=== PATIENT | male | born 1990 | race Caucasian/White ===

== ENCOUNTER → 2018-01-07 12:51 | Outpatient (CLI) | payer MEDICAID, SELFPAY ==
[2018-01-07 14:18] LABS: Hemoglobin A1C 5.2 % (4.5-6.2)
[2018-01-07 14:45] LABS: Vitamin B12 411 pg/mL (193-986)
[2018-01-07 14:51] LABS: Vitamin D 25 Total 39.9 ng/ml (30-100)
[2018-01-08 13:53] LABS: Albumin 63.2 % (55.8-66.1); Total Protein 6.8 g/dl (6.3-8.2)
== END ==
PROVIDERS: PCP Nurse Practitioner Family; Visit Provider Nurse Practitioner Adult Health
DX: R20.2 Paresthesia of skin (principal)
CPT/HCPCS: 36415; 82306; 82607; 83036; 84165

== ENCOUNTER 2018-02-24 16:42 | Emergency (ER) | payer MEDICAID, SELFPAY ==
[2018-02-24 16:47] VITALS: BP 112/69; PULSE 75; RESP 16; TEMP 36.8; O2SAT 98
[2018-02-24 18:53] LABS: Bilirubin Negative (Negative); Blood Negative (Negative); Clarity Clear; Glucose Negative (Negative); Ketones Negative (Negative); Leukocyte Esterase Negative (Negative); Nitrite Negative (Negative); Specific Gravity 1.025 (1.005-1.025); Urobilinogen 0.2 EU/dL (Up TO 0.2)
[2018-02-24] MEDS: Azithromycin 250 MG TAB 1000 MG (18:53)
[2018-02-24] MEDS: Ketorolac 30 MG/ML VIAL IM (18:53)
[2018-02-24] MEDS: cefTRIAXone 250 MG VIAL (18:53)
[2018-02-24] MEDS: Acetaminophen 500 MG TAB 1000 MG PO (18:54)
[2018-02-24 19:03] LABS: Bacteria Negative HPF (Negative); C & S Indicated? No; Casts Negative LPF (Negative); Crystals Few Calcium Oxalate HPF (Negative); Epithelial Cells Negative HPF (Negative); Mucus Negative (Negative); RBC Negative (0-2); WBC Negative HPF (0-5)
[2018-02-24 19:45] VITALS: BP 110/80; PULSE 88; RESP 18; TEMP 36.8; O2SAT 99
--- NOTE | 2018-02-24 20:07 | W.ED.GENAD ---
Discharge Plan Disposition Patient Disposition: HOME Condition: Good Discharge Details Chief Complaint: Urinary Clinical Impression: Acute epididymitis, Groin strain Primary Care Provider: Rosie Mcdonald ED Provider: Edwin West Home Meds and New Rx's Prescriptions: New acetaminophen [Mapap Extra Strength] 500 MG tablet 1,000 mg PO Q6H 5 Days Qty: 60 RF: 0 ibuprofen [Motrin IB] 200 MG tablet 800 mg PO Q6H 5 Days Qty: 80 RF: 0 doxycycline hyclate 100 mg capsule 100 mg PO BID 14 Days Qty: 28 RF: 0 No Action hydroxyzine pamoate 50 mg capsule 150 mg PO HS PRN (Reason: anxiety and insomnia) Qty: 270 RF: 3 buspirone 30 mg tablet 30 mg PO BID Qty: 180 RF: 3 omeprazole 20 mg capsule,delayed release(DR/EC) 20 mg PO BID Qty: 180 RF: 3 alum-mag hydroxide-simeth [Antacid Regular Strength] 355 ML suspension 30 ml PO PRN RF: 0 albuterol sulfate [ProAir HFA] 8.5 GM HFA aerosol inhaler 1 - 2 puff Inhalation Q4-6H PRN Qty: 1 RF: 3 topiramate 25 MG tablet 50 mg PO HS Qty: 60 RF: 3 Discharge Instructions Instructions: Muscle Strain (ED), Epididymitis (ED) Additional Instructions: Please take the medication as directed. Please only have protected intercourse. If you notice any worsening of your symptoms, or any new symptoms such as vomiting, diarrhea, fever, chills, shortness of breath, chest pain, numbness, weakness, or fainting , please return immediately to the emergency department for reevaluation. Please follow up with your primary care provider as soon as possible for reassessment and reevaluation. As always, it was a pleasure participating in your medical care today. Referrals: Rosie Mcdonald, CLIENT SERVICES REPRESENTATIVE [Primary Care Provider] - Medical Decision Making This is a pleasant 27-year-old male who presents for evaluation of right groin pain which has been present for the last few weeks but is gradually been getting worsened. It started in his right testicle and is now mainly in his groin. He had some navya colored semen on ejaculation earlier today. No pain with ejaculation. No significant blood that he noted. Pain is worsened with movement and palpation of the right groin, however there is no evidence of bulging, hernia, or other abnormality. No testicular tenderness and a normal cremasteric exam bilaterally. At this time I feel the patient's symptoms are most likely secondary to prolonged and chronic epididymitis with his proximally tender spermatic cord, as well as potential right-sided groin strain. Urinalysis is negative for any significant abnormalities. He has had gonorrhea and chlamydia in the past, and has been having unprotected sex with various individuals. We will treat for gonorrhea and chlamydia, as well as prescribe 14 days of doxycycline for potential chronic epididymitis. Will also prescribe high-dose NSAIDs for treatment of the inflammatory component/groin strain. We discussed red flags for which to return, including the importance of protection during intercourse. I have extensively reviewed the treatment plan and discharge instructions with the patient. I have addressed all patient concerns at this time. The patient was made aware of what symptoms to monitor for that would warrant a return to the emergency department. Discussed the plan with the patient, they demonstrate verbal understanding and agreement with our assessment and plan at this time. HPI General Date/Time Provider Initiated Documentation: 02/24/18 17:22. HPI Narrative: This is a pleasant 27-year-old male with a past medical history of asthma, and anxiety who presents today for evaluation of right-sided groin pain. He states that for the last 2 weeks he has had mild right-sided groin pain, which initially started down by his scrotum is mostly now localized in his right groin. He has some associated dysuria, he also noticed that his seminal fluid was slightly navya in color today when he ejaculated. He describes it as achy in sensation. Constant in nature. Worsened with movement and palpation of the right groin area the patient denies any hematuria, hematochezia, melena, acholic stool, diarrhea, current testicular pain, penile pain, or urethral discharge. He does have a history of STDs for both gonorrhea and chlamydia in the past. He denies any other complaints. He denies any recent traumas. He does have a history of kidney stones. He denies any pertinent surgeries, pertinent family history or IV or illicit drug use. Related Data Home Medications Medication Instructions Recorded Confirmed alum-mag hydroxide-simeth [Antacid 30 ml PO PRN ml 05/30/17 02/24/18 Regular Strength] albuterol sulfate [Proair Hfa] 1 - 2 puff INHALATION Q4-6H PRN #1 11/14/17 02/24/18 inhaler topiramate 50 mg PO HS #60 tab-cap 01/07/18 02/24/18 buspirone 30 mg tablet 30 mg PO BID #180 tab-cap 01/31/18 02/24/18 hydroxyzine pamoate 50 mg capsule 150 mg PO HS PRN #270 tab-cap 01/31/18 02/24/18 omeprazole 20 mg capsule,delayed 20 mg PO BID #180 tab-cap 01/31/18 02/24/18 release acetaminophen [Mapap Extra 1,000 mg PO Q6H 5 Days #60 tab 02/24/18 Strength] doxycycline hyclate 100 mg PO BID 14 Days #28 cap 02/24/18 ibuprofen [Motrin Ib] 800 mg PO Q6H 5 Days #80 tab 02/24/18 Previous Rx's Medication Instructions Recorded albuterol sulfate [Proair Hfa] 1 - 2 puff INHALATION Q4-6H PRN #1 11/14/17 inhaler topiramate 50 mg PO HS #60 tab-cap 01/07/18 buspirone 30 mg tablet 30 mg PO BID #180 tab-cap 01/31/18 hydroxyzine pamoate 50 mg capsule 150 mg PO HS PRN #270 tab-cap 01/31/18 omeprazole 20 mg capsule,delayed 20 mg PO BID #180 tab-cap 01/31/18 release acetaminophen [Mapap Extra 1,000 mg PO Q6H 5 Days #60 tab 02/24/18 Strength] doxycycline hyclate 100 mg PO BID 14 Days #28 cap 02/24/18 ibuprofen [Motrin Ib] 800 mg PO Q6H 5 Days #80 tab 02/24/18 Allergies Allergy/AdvReac Type Severity Reaction Status Date / Time No Known Allergies Allergy Unverified 02/24/18 16:53 General Stated Complaint: Urinary SERGE: 3 Review of Systems Review of Systems 10 point review of systems was performed, pertinent positives and negatives are noted in the history of present illness. Exam Narrative Exam Narrative: 1.Const: Well-nourished, Well-developed, appearing stated age 2.Eyes: PERRL, no conjunctival injection, and symmetrical lids. 3.ENT: Atraumatic external nose and ears. Moist MM. Neck: Symmetric, trachea midline, No thyromegaly. 4.CVS: +S1/S2, No murmurs or gallops. Peripheral pulses 2+ and equal in all extremities. Brisk capillary refill in all extremities. 5.RESP: Unlabored respiratory effort. Clear to auscultation bilaterally. No wheezes rales or rhonchi 6.GI: Soft, Nontender/Nondistended, No hepatosplenomegaly. No guarding or rebound. No pain at McBurney's point, negative Nichols sign, negative obturator and psoas sign mild tenderness on palpation of the right groin. No evidence of hernia. Valsalva elicits no evidence of herniation. No mass palpated in the groin or bulging. Testicular exam performed with nurse at bedside demonstrates a uncircumcised penis with no urethral discharge, no tenderness. No lesions, bumps, or wounds. Bilaterally descended testicles are present, with no evidence of swelling, or edema. No significant tenderness on palpation of the testicles. Some tenderness on palpation of the more proximal spermatic cord. No masses are noted. Normal cremasteric reflex bilaterally 7.MSK: Normocephalic/Atraumatic, Extremities w/o deformity or ttp No cyanosis or clubbing, Normal movement of all extremities 8.Skin: Warm, Dry. No rashes or lesions. 9.Neuro: cooker meal II-XII grossly intact. Sensation grossly intact, no focal neurologic deficits. 10.Psych: (AAO) x3. Appropriate mood and affect Course Vital Signs Temperature 36.8 C 02/24/18 16:47 Pulse 75 02/24/18 16:47 Respiratory Rate 16 02/24/18 16:47 Blood Pressure 112/69 02/24/18 16:47 Pulse Oximetry 98 02/24/18 16:47 Temperature 36.8 C 02/24/18 19:45 Temperature Source Skin 02/24/18 16:47 Pulse 88 02/24/18 19:45 Respiratory Rate 18 02/24/18 19:45 Respiratory Effort 02/24/18 16:51 Blood Pressure 110/80 02/24/18 19:45 Blood Pressure Position Sitting 02/24/18 16:47 Pulse Oximetry 99 02/24/18 19:45 Oxygen Delivery Method Room Air 02/24/18 16:47 Oxygen Flow Rate 0 02/24/18 16:47 Pain Level 3 02/24/18 16:47 Lab/Test Results Lab/Test Results: Laboratory Tests Range/Units 02/24/18 18:16 Urine Color (Yellow) Yellow Urine Clarity Clear Urine pH (5-8) 6.0 Ur Specific [place] (1.005-1.025) 1.025 Urine Protein (Negative) mg/dL Trace H Urine Ketones (Negative) mg/dL Negative Urine Blood (Negative) Negative Urine Nitrite (Negative) Negative Urine Bilirubin (Negative) Negative Urine Urobilinogen (Up TO 0.2) EU/dL 0.2 Ur Leukocyte Esterase (Negative) Negative Urine RBC (0-2) Negative Urine WBC (0-5) HPF Negative Ur Epithelial Cells (Negative) HPF Negative Urine Crystals (Negative) HPF Few calcium oxalate Urine Bacteria (Negative) HPF Negative Urine Casts (Negative) LPF Negative Urine Mucus (Negative) Negative Ur Culture Indicated? No Urine Glucose (Negative) mg/dL Negative
[2018-02-26 14:43] LABS: Chlamydia Result Negative; GC Result Negative
== END 2018-02-24 19:46 | disposition home or self-care (01) ==
PROVIDERS: Emergency Provider Student in an Organized Health Care Education/Training Program; PCP Nurse Practitioner Family
DX: N45.1 Epididymitis (principal); S76.201A Unspecified injury of adductor muscle, fascia and tendon of right thigh, initial encounter; X58.XXXA Exposure to other specified factors, initial encounter
CPT/HCPCS: 87491; 87591; 99283; 81003; 81015; J0696; J1885

== ENCOUNTER 2018-02-26 00:51 | Outpatient (CLI) | payer MEDICAID, SELFPAY ==
--- NOTE | 2018-02-26 07:46 | DI.RAD_ITS ---
SYMPTOM/DIAGNOSIS: PRE MRI, SHRAPNEL IN HAND S60.559A LEFT HAND: 02/26 Two views were obtained. No metallic foreign body identified. The bones appear normal.
--- NOTE | 2018-02-26 08:45 | DI.MRI_ITS ---
SYMPTOM/DIAGNOSIS: L3-[address] LUMBOSACRAL SPINE MRI: 02/26 MRI examination of the lumbosacral spine was performed according to the usual protocol. Note is made of bilateral L3 spondylolysis as noted on abdominal CT of 07/10/17. There is mild hypertrophic degenerative change of the facet joints of the lower lumbar spine. There is signal loss in L3-4 and L4-5 intervertebral discs with peridiscal vertebral signal changes consistent with disc degeneration. There are moderate disc bulges at L3-4 and L4-5 and there may be a small superimposed left lateral disc herniation at the level of the neural foramen at L3-4. No additional disc herniation identified in the lumbar region. The neural foramina ae mildly narrowed bilaterally at L3-4, left greater than right. Otherwise, neural foramina appear intact throughout the lumbar region. Conus medullaris appears intact. CONCLUSION: Findings consistent with disc degeneration at L3-4 and L4-5, mild disc bulges are noted at these levels with probable small superimposed left lateral disc herniation of L3-4 which may cause impingement of left L3 nerve root at this level. Please correlate clinically. 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
== END 2018-02-26 01:11 ==
PROVIDERS: PCP Nurse Practitioner Family; Visit Provider Psychiatry & Neurology Neurology
DX: M51.16 Intervertebral disc disorders with radiculopathy, lumbar region (principal); M43.06 Spondylolysis, lumbar region; M43.16 Spondylolisthesis, lumbar region; Z13.89 Encounter for screening for other disorder; S60.552D Superficial foreign body of left hand, subsequent encounter
CPT/HCPCS: 72148; 73120

== ENCOUNTER 2018-03-06 14:41 | Outpatient (CLI) | payer MEDICAID, SELFPAY ==
[2018-03-07 11:38] LABS: HIV-1/2 Ag & Ab Screen Negative (NEGAT)
[2018-03-07 14:31] LABS: Syphilis Serology (RPR) Negative (Negative)
== END 2018-03-06 15:01 ==
PROVIDERS: PCP Nurse Practitioner Family; Visit Provider Nurse Practitioner Family
DX: N45.1 Epididymitis (principal)
CPT/HCPCS: 36415; 87389; 86592

== ENCOUNTER 2018-03-06 15:24 | Outpatient (REF) | payer MEDICAID, SELFPAY | END 2018-03-06 15:44 | LOC: LBN 15:24 | PROVIDERS: PCP Nurse Practitioner Family; Visit Provider Nurse Practitioner Family | DX: N45.1 Epididymitis (principal) | CPT/HCPCS: 87086 ==

== ENCOUNTER 2018-03-08 18:56 | Emergency (ER) | payer MEDICAID, SELFPAY ==
[2018-03-08 19:00] VITALS: BP 125/80; PULSE 78; RESP 16; TEMP 36.5; O2SAT 100
--- NOTE | 2018-03-08 19:15 | W.ED.GENAD ---
Discharge Plan Disposition Patient Disposition: STILL A PATIENT Condition: Stable Discharge Details Chief Complaint: Abd Prob Clinical Impression: Abdominal pain, Right testicular pain Primary Care Provider: Rosie Mcdonald ED Provider: Keesha Lemon Home Meds and New Rx's Prescriptions: No Action hydroxyzine pamoate 50 mg capsule 150 mg PO HS PRN (Reason: anxiety and insomnia) Qty: 270 RF: 3 buspirone 30 mg tablet 30 mg PO BID Qty: 180 RF: 3 omeprazole 20 mg capsule,delayed release(DR/EC) 20 mg PO BID Qty: 180 RF: 3 alum-mag hydroxide-simeth [Antacid Regular Strength] 355 ML suspension 30 ml PO PRN RF: 0 albuterol sulfate [ProAir HFA] 8.5 GM HFA aerosol inhaler 1 - 2 puff Inhalation Q4-6H PRN Qty: 1 RF: 3 topiramate 25 MG tablet 50 mg PO HS Qty: 60 RF: 3 doxycycline hyclate 100 mg capsule 100 mg PO BID 14 Days Qty: 28 RF: 0 Medical Decision Making 27 yo M w/ a c/o RLQ abd pain w/ radiation to R groin and testicle x 3.5 weeks. Seen here on 02/24/18 and diagnosed with epididymitis and given treatment for gonorrhea chlamydia and sent home with doxycycline. Also saw PCP this week for same symptoms and sent for lab work in hospital and for outpatient renal ultrasound this Sunday. Urinalysis and gonorrhea/chlamydia from 02/24/18. Labs per PCP on 03/07 were for HIV and syphilis and were negative. Vitals within normal limits. Patient has tenderness to palpation in the right lower quadrant and mild tenderness to palpation of the right testicle but the testicle appears normal to inspection without edema, erythema and normal cremasteric reflex. No rebound. Negative psoas/obturator/heel jar sign. No penile discharge and denies recent sexual intercourse. Differential diagnosis includes acute appendicitis, kidney stone, epididymitis, hernia, groin strain, etc. Will place an IV, labs, urinalysis, CT abdomen and pelvis, and give a dose of Toradol, Zofran and bolus IV fluids. 1999 -- Case endorsed to Dr. West to f/u on labs and imaging. Discussed that pt likely does not need a renal ultrasound on Sunday but can consider a possible outpatient testicular ultrasound next week if indicated. HPI General Mode of arrival: ambulatory. Date/Time Provider Initiated Documentation: 03/08/18 19:02. Limitations to Documentation: no limitations. Information obtained by: patient. HPI Narrative: Patient is a 27-year-old male who presents to the ED with a complaint of right testicle, right groin and right lower quadrant pain for the past 3-1/2 weeks. Patient states the pain mainly started in his right groin and right testicle and now has radiated up into his right abdomen. Patient was seen here on 02/24/18 and diagnosed with epididymitis and treated for gonorrhea chlamydia and sent home with doxycycline. Patient states he has been taking the doxycycline. Patient states he saw his primary care doctor again 2 days ago for the same complaint and was referred for labs and a renal ultrasound which is scheduled for Sunday. Patient describes the pain as sharp, now 7/10, and radiates up to bilateral sides of the abdomen. Patient admits to occasional nausea but denies any vomiting, diarrhea, urinary symptoms, penile discharge, penile lesions or fever. Patient denies any recent sexual intercourse since last ED visit. Patient states he has been eating and drinking normally. States he has been occasionally taking Tylenol and Motrin for symptoms without relief, last dose over 6 hours ago. Patient states his last bowel movement was today and within normal limits and denies any rectal bleeding. Patient states he drank a whole bottle of magnesium citrate today to see if it would help his symptoms but it did not. Past medical history: Asthma, anxiety, GERD, depression Surgical history: [place] teeth resection Social history: Smokes tobacco, smokes marijuana, occasional alcohol use, last alcohol use 3 weeks ago Medications: See list Allergies: NKDA PCP: Rosie Solares Related Data Home Medications Medication Instructions Recorded Confirmed alum-mag hydroxide-simeth [Antacid 30 ml PO PRN ml 05/30/17 03/08/18 Regular Strength] albuterol sulfate [Proair Hfa] 1 - 2 puff INHALATION Q4-6H PRN #1 11/14/17 03/08/18 inhaler topiramate 50 mg PO HS #60 tab-cap 01/07/18 03/08/18 buspirone 30 mg tablet 30 mg PO BID #180 tab-cap 01/31/18 03/08/18 hydroxyzine pamoate 50 mg capsule 150 mg PO HS PRN #270 tab-cap 01/31/18 03/08/18 omeprazole 20 mg capsule,delayed 20 mg PO BID #180 tab-cap 01/31/18 03/08/18 release doxycycline hyclate 100 mg PO BID 14 Days #28 cap 02/24/18 03/08/18 Previous Rx's Medication Instructions Recorded albuterol sulfate [Proair Hfa] 1 - 2 puff INHALATION Q4-6H PRN #1 11/14/17 inhaler topiramate 50 mg PO HS #60 tab-cap 01/07/18 buspirone 30 mg tablet 30 mg PO BID #180 tab-cap 01/31/18 hydroxyzine pamoate 50 mg capsule 150 mg PO HS PRN #270 tab-cap 01/31/18 omeprazole 20 mg capsule,delayed 20 mg PO BID #180 tab-cap 01/31/18 release doxycycline hyclate 100 mg PO BID 14 Days #28 cap 02/24/18 Allergies Allergy/AdvReac Type Severity Reaction Status Date / Time No Known Allergies Allergy Unverified 03/08/18 19:04 General Stated Complaint: Abd Prob SERGE: 3 Review of Systems Review of Systems All systems reviewed & are unremarkable except as noted in HPI and below Constitutional Denies chills, Denies excessive sweating, Denies fatigue, Denies fever(s), Denies weakness and Denies weight loss Eyes Reports system reviewed and no additional complaints, except as docu and Denies blurry vision ENT Denies vertigo, Denies dizziness, Denies otalgia, Denies nasal congestion, Denies sore throat and Denies throat swelling Cardiovascular Denies chest pain, Denies syncope, Denies rapid heart rate and Denies dyspnea Respiratory Denies dyspnea Gastrointestinal Reports abdominal pain, Denies diarrhea, Reports nausea and Denies vomiting Genitourinary Denies hematuria, Denies genital lesions, Denies dysuria, Denies flank pain, Denies penile discharge, Denies urinary frequency and Denies urinary urgency Musculoskeletal Denies back pain and Denies joint swelling Integumentary/Breasts Denies lesions and Denies rash Neurologic Denies behavioral changes, Denies confusion, Denies vertigo, Denies dizziness, Denies syncope and Denies weakness Psychiatric Denies behavioral changes, Denies confusion and Denies depression Endocrine Denies excessive sweating and Denies fatigue Hematologic/Lymphatic Denies easy bruising and Denies lymphadenopathy Allergic/Immunologic Denies throat swelling PFSH Family History Mother Diabetes Father Neoplasm Heart disease Medical History Ureteropelvic junction (UPJ) obstruction, left (Resolved 06/23/16) Tobacco use disorder (Chronic) Heart palpitations (Inactive 09/30/15) Obesity (Chronic 09/02/13) Kidney stone (Inactive) Intermittent explosive disorder (Chronic 05/05/14) History of squamous cell carcinoma of skin (Resolved 04/09/17) Horseshoe kidney (Chronic 06/23/16) History of concussion (Chronic) Gastroesophageal reflux disease (Chronic 11/14/17) Depression (Chronic 09/02/13) Anxiety (Chronic 05/05/14) Acne vulgaris (Resolved Unknown) Acute pain of right shoulder (Resolved 10/07/15) Social History current occupational status: employed current occupation: [employer] pets and animals: Yes pets and animals: cat(s) Smoking/Tobacco Use Status: Current every day alcohol intake: current alcohol intake frequency: other substance use type: marijuana additional social history: Binge drinks ETOH up to 24 beers daily approximately 2-3x per week Surgical History EGD - MAC (07/27/17) Exam Const General: cooperative and healthy appearing Orientation: alert and awake [facility] Head: normal to inspection Ears: hearing grossly normal bilaterally and external ears normal General nose exam: external nose normal Face and sinus: normal facial exam Mouth: oral mucosae normal Teeth and gingiva: dentition normal Throat: posterior oropharynx normal Eyes General: appearance normal, both eyes and all related structures Eyelids: eyelids normal EOM: EOM intact bilaterally Neck Neck: normal visual inspection Lymphatic: no lymphadenopathy noted Chest Chest: normal inspection of the chest Resp Effort & Inspection: normal respiratory effort and able to speak in complete sentences Auscultation: clear to auscultation bilaterally Cardio Rate: regular rate Rhythm: regular rhythm GI Inspection: normal to inspection Palpation: soft, not firm, no guarding, no hepatosplenomegaly, no masses and tender in the RLQ; obturator sign negative, psoas sign negative and with no rebound tenderness Auscultation: hypoactive bowel sounds Male General Exam: No edema, No erythema and No hernia Penis: normal penis and other (uncircumcised) Scrotum: other (cremasteric reflex present b/l ) Testes: no testicular mass, no testicular swelling, testicular tenderness (mild to light palpation ) on the right and normal testicular lie Back/Spine/Pelvis Back: no CVA tenderness Skin General skin exam: no rashes or lesions noted Neuro General: alert and awake Cognition: normal cognition Speech: speech normal Gait: normal gait Motor: muscle tone normal throughout Sensory Exam: no sensory deficits noted Extrem General: normal to inspection and full ROM Psych Appearance: grossly normal Mental Status: mental status grossly normal Speech and Movement: speech and movement normal Affect: normal affect Thought Process: normal Course Vital Signs Temperature 97.7 F 03/08/18 19:00 Pulse 78 03/08/18 19:00 Respiratory Rate 16 03/08/18 19:00 Blood Pressure 125/80 03/08/18 19:00 Pulse Oximetry 100 03/08/18 19:00 Temperature 97.7 F 03/08/18 19:00 Temperature Source Skin 03/08/18 19:00 Pulse 78 03/08/18 19:00 Respiratory Rate 16 03/08/18 19:00 Respiratory Effort Non-Labored 03/08/18 19:02 Blood Pressure 125/80 03/08/18 19:00 Pulse Oximetry 100 03/08/18 19:00 Pain Level 7 03/08/18 19:00
--- NOTE | 2018-03-08 19:39 | DI.CT_ITS ---
SYMPTOM/DIAGNOSIS: RLQ ABD PAIN, ? APPENDICITIS ABDOMEN AND PELVIC CT: CT examination of the abdomen and pelvis was performed with a bolus infusion of 100 cc's of Omnipaque 350. Images obtained through the lung bases appear normal. Liver, spleen and pancreas appear normal. Gallbladder and bile ducts are CT normal. Abdominal aorta is of normal diameter and no major vascular abnormality is seen. No significant abdominal wall hernia is seen. Mild prominence of mesenteric lymph nodes noted which is nonspecific. There is fluid filled distension of the colon to the level of the descending colon consistent with diarrhea. Appendix appears normal. No evidence of diverticulitis. Adrenals appear normal bilaterally. Note is again made of mild bilateral hydronephrosis with horseshoe kidney as previously noted, stable from 07/10/17. Tiny non obstruction left lower pole renal calculus noted. CONCLUSION: No evidence of appendicitis. Previously noted horseshoe kidney again seen with mild bilateral hydronephrosis and non obstructing left nephrolithiasis.
[2018-03-08 19:50] LABS: Bilirubin Negative (Negative); Blood Negative (Negative); Clarity Clear; Glucose Negative (Negative); Ketones Negative (Negative); Leukocyte Esterase Negative (Negative); Nitrite Negative (Negative); Specific Gravity >= 1.030 (1.005-1.025); Urobilinogen 0.2 EU/dL (Up TO 0.2)
[2018-03-08 19:52] LABS: Abs Immature Grans 0.01 k/cumm (0.0-0.09); Absolute Basophil Count 0.02 k/cumm (0.0-0.2); Absolute Eosinophil Count 0.21 k/cumm (0.0-0.7); Absolute Lymphocyte Count 2.99 k/cumm (1.2-3.4); Absolute Monocyte Count 0.56 k/cumm (0.11-0.7); Absolute Neutrophil Count 2.49 k/cumm (1.2-6.7); Basophils % 0.3; Eosinophils % 3.3; HCT 39.2 % (40.0-50.0); HGB 14.3 g/dL (13.5-17.5); Immature Grans % 0.2; Lymphocytes % 47.6; Mean Corp. HGB Concentration 36.5 g/dL (32.0-36.0); Mean Corpuscular Hemoglobin 32.3 pg (27.0-33.0); Mean Corpuscular Volume 88.5 fL (80-95); Mean Platelet Volume 9.3 fL (8.0-11.0); Monocytes % 8.9; Neutrophils % 39.7; Platelet Count 175 x1000/uL (130-400); RBC 4.43 m/cumm (4.50-6.00); RBC Distribution Width 12.5 % (11.8-14.1); White Blood Cell Count 6.28 k/cumm (4.4-10.8)
[2018-03-08] MEDS: Ondansetron 4 MG/2 ML VIAL IVP (19:57)
[2018-03-08] MEDS: Ketorolac 30 MG/ML VIAL IVP (19:57)
[2018-03-08] MEDS: Normal Saline 1,000 ML 1000 ML IV (19:57)
[2018-03-08 20:09] LABS: Lipase 161 U/L (73-393)
[2018-03-08 20:15] LABS: ALT 30 U/L (12-78); AST 17 U/L (15-37); Alkaline Phosphatase 56 U/L (46-116); Anion Gap 8.3 mmol/L (3-11); BUN 17 mg/dL (7-18); Bilirubin, Total 0.5 mg/dL (0.2-1.0); CO2 27.7 mmol/L (21.0-32.0); CREATININE 1.19 mg/dL (0.70-1.30); Calcium 8.6 mg/dL (8.5-10.1); Chloride 106 mmol/L (98-107); Glucose 72 mg/dL (70-100); Potassium 3.7 mmol/L (3.5-5.1); Sodium 142 mmol/L (136-145); Total Protein 7.1 g/dL (6.4-8.2)
--- NOTE | 2018-03-08 20:47 | DI.VRAD_ITS ---
EXAM: CT Abdomen and Pelvis With Intravenous Contrast EXAM DATE/TIME: 03/08/2018 7:41 PM CLINICAL HISTORY: 27 years old, male; Pain; Abdominal pain; Localized; Right lower quadrant (rlq); Patient HX: Rlq pain; Additional info: R/O acute appendicitis TECHNIQUE: Axial computed tomography images of the abdomen and pelvis with intravenous contrast. Coronal and sagittal reformatted images were created and reviewed. COMPARISON: CT RENAL COLIC WO CONTRAST 07/25/2013 2:11 AM FINDINGS: Lower thorax: Mild dependent changes in the lung bases, right greater than left. No pleural effusion. ABDOMEN: Liver: Normal. No mass. Gallbladder and bile ducts: Normal. No calcified stones. No ductal dilation. Pancreas: Normal. No ductal dilation. Spleen: Normal. No splenomegaly. Adrenals: Normal. No mass. Kidneys and ureters: The configuration of the kidneys is unchanged with mild medial sedation in the lower poles with possible slight isthmus of tissue connecting the inferior poles, without significant change. There is mild hydronephrosis versus parapelvic cysts in both kidneys, without significant change since 07/17/2013. 2 previously seen nonobstructing left renal calculi are no longer present. Stomach and bowel: The colon is fluid-filled to the level of the sigmoid colon suggestive of diarrhea. There is no significant wall thickening to suggest colitis. Appendix: The appendix is top normal in caliber without evidence of hyperemia or surrounding inflammation to suggest acute appendicitis. PELVIS: Bladder: Unremarkable as visualized. Reproductive: Unremarkable as visualized. ABDOMEN and PELVIS: Intraperitoneal space: Normal. No free air. No significant fluid collection. Bones/joints: Minimal degenerative changes at L3-L4 and L4-L5. Soft tissues: Unremarkable. Vasculature: Normal. No abdominal aortic aneurysm. Lymph nodes: Normal. No enlarged lymph nodes. IMPRESSION: 1. The appendix is top normal in caliber without evidence of hyperemia or surrounding inflammation to suggest acute appendicitis. 2. Fluid filled colon to the level of the sigmoid suggestive of diarrhea. No wall thickening is evident. 3. Stable abnormal configuration of the kidneys with possible tiny inferior isthmus connecting the lower poles with bilateral mild hydronephrosis and or parapelvic cysts. Previously seen nonobstructing left renal calculi are no longer present. Dictated and Authenticated by: Christine Hanley MD. Ordering:MONIKA CRUZ MD
--- NOTE | 2018-03-08 20:51 | W.ED.GENAD ---
Discharge Plan Disposition Patient Disposition: STILL A PATIENT Condition: Stable Discharge Details Chief Complaint: Abd Prob Clinical Impression: Abdominal pain, Right testicular pain Primary Care Provider: Rosie Mcdonald ED Provider: Keesha Lemon Home Meds and New Rx's Prescriptions: New hydrocodone-acetaminophen [[place]] 7.5-325 mg tablet 1 tab PO Q6H PRN (Reason: pain) Qty: 6 RF: 0 No Action hydroxyzine pamoate 50 mg capsule 150 mg PO HS PRN (Reason: anxiety and insomnia) Qty: 270 RF: 3 buspirone 30 mg tablet 30 mg PO BID Qty: 180 RF: 3 omeprazole 20 mg capsule,delayed release(DR/EC) 20 mg PO BID Qty: 180 RF: 3 alum-mag hydroxide-simeth [Antacid Regular Strength] 355 ML suspension 30 ml PO PRN RF: 0 albuterol sulfate [ProAir HFA] 8.5 GM HFA aerosol inhaler 1 - 2 puff Inhalation Q4-6H PRN Qty: 1 RF: 3 topiramate 25 MG tablet 50 mg PO HS Qty: 60 RF: 3 doxycycline hyclate 100 mg capsule 100 mg PO BID 14 Days Qty: 28 RF: 0 Discharge Instructions Instructions: Testicle Pain (ED), Abdominal Pain (ED) Additional Instructions: Please continue to take your Tylenol and Motrin that you have at home for your pain. Please use more tight fitting underwear. Please follow-up with your ultrasound at 9 AM on Sunday morning. Please take the pain medication only as needed. if you notice any worsening of your symptoms, or any new symptoms such as vomiting, diarrhea, fever, chills, shortness of breath, chest pain, numbness, weakness, or fainting , please return immediately to the emergency department for reevaluation. Please follow up with your primary care provider as soon as possible for reassessment and reevaluation. As always, it was a pleasure participating in your medical care today. Referrals: Rosie Mcdonald NP [Primary Care Provider] - Medical Decision Making The case is signed out to be my my colleague Dr. Lemon. Patient's laboratory workup has returned and shows no significant abnormalities. No evidence of significant leukocytosis, no bandemia, no cathy electrolyte abnormality, urinalysis is benign. No evidence of infection. Patient's abdominal exam on repeat examination continues to appear benign with no significant concerning tenderness suggestive of an acute abdomen. CT scan results have returned and shows no evidence of acute appendicitis or other significant acute abnormality. At this time I feel that the patient is safe for discharge home with close follow-up with his primary care provider. he does have some minimal testicular ache, although I feel this is most likely secondary to a chronic varicocele or continued epididymitis, with no evidence of a negative cremasteric reflex, no evidence of pain out of proportion, horizontal lie, or elevated testicle he shows no clinical signs or symptoms suggestive of testicular torsion and no other acute testicular abnormality. We will attempt to set up outpatient ultrasound of his testicles and scrotum for further evaluation and differentiation if the patient is inclined to this. I had a long discussion with the patient regarding potential red flags for which to return, the patient understands. I have extensively reviewed the treatment plan and discharge instructions with the patient. I have addressed all patient concerns at this time. The patient was made aware of what symptoms to monitor for that would warrant a return to the emergency department. Discussed the plan with the patient, they demonstrate verbal understanding and agreement with our assessment and plan at this time. HPI General Mode of arrival: ambulatory. Date/Time Provider Initiated Documentation: 03/08/18 19:02. Limitations to Documentation: no limitations. Information obtained by: patient. Related Data Home Medications Medication Instructions Recorded Confirmed alum-mag hydroxide-simeth [Antacid 30 ml PO PRN ml 05/30/17 03/08/18 Regular Strength] albuterol sulfate [Proair Hfa] 1 - 2 puff INHALATION Q4-6H PRN #1 11/14/17 03/08/18 inhaler topiramate 50 mg PO HS #60 tab-cap 01/07/18 03/08/18 buspirone 30 mg tablet 30 mg PO BID #180 tab-cap 01/31/18 03/08/18 hydroxyzine pamoate 50 mg capsule 150 mg PO HS PRN #270 tab-cap 01/31/18 03/08/18 omeprazole 20 mg capsule,delayed 20 mg PO BID #180 tab-cap 01/31/18 03/08/18 release doxycycline hyclate 100 mg PO BID 14 Days #28 cap 02/24/18 03/08/18 hydrocodone-acetaminophen [[place]] 1 tab PO Q6H PRN #6 tab 10/12/18 Previous Rx's Medication Instructions Recorded albuterol sulfate [Proair Hfa] 1 - 2 puff INHALATION Q4-6H PRN #1 11/14/17 inhaler topiramate 50 mg PO HS #60 tab-cap 01/07/18 buspirone 30 mg tablet 30 mg PO BID #180 tab-cap 01/31/18 hydroxyzine pamoate 50 mg capsule 150 mg PO HS PRN #270 tab-cap 01/31/18 omeprazole 20 mg capsule,delayed 20 mg PO BID #180 tab-cap 01/31/18 release doxycycline hyclate 100 mg PO BID 14 Days #28 cap 02/24/18 hydrocodone-acetaminophen [[place]] 1 tab PO Q6H PRN #6 tab 03/08/18 Allergies Allergy/AdvReac Type Severity Reaction Status Date / Time No Known Allergies Allergy Unverified 03/08/18 19:04 General Stated Complaint: Abd Prob SERGE: 3 PFSH Family History Mother Diabetes Father Neoplasm Heart disease Medical History Ureteropelvic junction (UPJ) obstruction, left (Resolved 06/23/16) Tobacco use disorder (Chronic) Heart palpitations (Inactive 09/30/15) Obesity (Chronic 09/02/13) Kidney stone (Inactive) Intermittent explosive disorder (Chronic 05/05/14) History of squamous cell carcinoma of skin (Resolved 04/09/17) Horseshoe kidney (Chronic 06/23/16) History of concussion (Chronic) Gastroesophageal reflux disease (Chronic 11/14/17) Depression (Chronic 09/02/13) Anxiety (Chronic 05/05/14) Acne vulgaris (Resolved Unknown) Acute pain of right shoulder (Resolved 10/07/15) Social History current occupational status: employed current occupation: [employer] pets and animals: Yes pets and animals: cat(s) Smoking/Tobacco Use Status: Current every day alcohol intake: current alcohol intake frequency: other substance use type: marijuana additional social history: Binge drinks ETOH up to 24 beers daily approximately 2-3x per week Surgical History EGD - MAC (07/27/17) Course Vital Signs Temperature 36.5 C 03/08/18 19:00 Pulse 78 03/08/18 19:00 Respiratory Rate 16 03/08/18 19:00 Blood Pressure 125/80 03/08/18 19:00 Pulse Oximetry 100 03/08/18 19:00 Temperature 36.5 C 03/08/18 19:00 Temperature Source Skin 03/08/18 19:00 Pulse 78 03/08/18 19:00 Respiratory Rate 16 03/08/18 19:00 Respiratory Effort Non-Labored 03/08/18 19:02 Blood Pressure 125/80 03/08/18 19:00 Pulse Oximetry 100 03/08/18 19:00 Pain Level 7 03/08/18 19:00 Lab/Test Results Lab/Test Results: Laboratory Tests Range/Units 03/08/18 03/08/18 03/08/18 19:15 19:20 19:20 WBC (4.4-10.8) k/cumm 6.28 RBC (4.50-6.00) m/cumm 4.43 L Hgb (13.5-17.5) g/dL 14.3 Hct (40.0-50.0) % 39.2 L MCV (80-95) fL 88.5 MCH (27.0-33.0) pg 32.3 MCHC (32.0-36.0) g/dL 36.5 H RDW (11.8-14.1) % 12.5 Plt Count (130-400) x1000/uL 175 MPV (8.0-11.0) fL 9.3 Immature Gran % 0.2 Neutrophils % 39.7 Lymphocytes % 47.6 Monocytes % 8.9 Eosinophils % 3.3 Basophils % 0.3 Absolute Neutrophils (1.2-6.7) k/cumm 2.49 Absolute Lymphocytes (1.2-3.4) k/cumm 2.99 Absolute Monocytes (0.11-0.7) k/cumm 0.56 Absolute Eosinophils (0.0-0.7) k/cumm 0.21 Absolute Basophils (0.0-0.2) k/cumm 0.02 Sodium (136-145) mmol/L 142 Potassium (3.5-5.1) mmol/L 3.7 Chloride (98-107) mmol/L 106 Carbon Dioxide (21.0-32.0) mmol/L 27.7 Anion Gap (3-11) mmol/L 8.3 BUN (7-18) mg/dL 17 Creatinine (0.70-1.30) mg/dL 1.19 Estimated GFR/1.73 m2 (mL/min/1.73m2) >= 60.00 Glucose (70-100) mg/dL 72 Calcium (8.5-10.1) mg/dL 8.6 Total Bilirubin (0.2-1.0) mg/dL 0.5 AST (15-37) U/L 17 ALT (12-78) U/L 30 Alkaline Phosphatase (46-116) U/L 56 Total Protein (6.4-8.2) g/dL 7.1 Albumin (3.4-5.0) g/dL 4.0 Lipase (73-393) U/L Urine Color (Yellow) Yellow Urine Clarity Clear Urine pH (5-8) 6.0 Ur Specific [place] (1.005-1.025) >= 1.030 H Urine Protein (Negative) mg/dL Negative Urine Ketones (Negative) mg/dL Negative Urine Blood (Negative) Negative Urine Nitrite (Negative) Negative Urine Bilirubin (Negative) Negative Urine Urobilinogen (Up TO 0.2) EU/dL 0.2 Ur Leukocyte Esterase (Negative) Negative Urine Glucose (Negative) mg/dL Negative Range/Units 03/08/18 19:20 WBC (4.4-10.8) k/cumm RBC (4.50-6.00) m/cumm Hgb (13.5-17.5) g/dL Hct (40.0-50.0) % MCV (80-95) fL MCH (27.0-33.0) pg MCHC (32.0-36.0) g/dL RDW (11.8-14.1) % Plt Count (130-400) x1000/uL MPV (8.0-11.0) fL Immature Gran % Neutrophils % Lymphocytes % Monocytes % Eosinophils % Basophils % Absolute Neutrophils (1.2-6.7) k/cumm Absolute Lymphocytes (1.2-3.4) k/cumm Absolute Monocytes (0.11-0.7) k/cumm Absolute Eosinophils (0.0-0.7) k/cumm Absolute Basophils (0.0-0.2) k/cumm Sodium (136-145) mmol/L Potassium (3.5-5.1) mmol/L Chloride (98-107) mmol/L Carbon Dioxide (21.0-32.0) mmol/L Anion Gap (3-11) mmol/L BUN (7-18) mg/dL Creatinine (0.70-1.30) mg/dL Estimated GFR/1.73 m2 (mL/min/1.73m2) Glucose (70-100) mg/dL Calcium (8.5-10.1) mg/dL Total Bilirubin (0.2-1.0) mg/dL AST (15-37) U/L ALT (12-78) U/L Alkaline Phosphatase (46-116) U/L Total Protein (6.4-8.2) g/dL Albumin (3.4-5.0) g/dL Lipase (73-393) U/L 161 Urine Color (Yellow) Urine Clarity Urine pH (5-8) Ur Specific [place] (1.005-1.025) Urine Protein (Negative) mg/dL Urine Ketones (Negative) mg/dL Urine Blood (Negative) Urine Nitrite (Negative) Urine Bilirubin (Negative) Urine Urobilinogen (Up TO 0.2) EU/dL Ur Leukocyte Esterase (Negative) Urine Glucose (Negative) mg/dL
--- NOTE | 2018-03-08 20:55 | ED.GENADUL_ITS ---
Discharge Plan Disposition Patient Disposition: STILL A PATIENT Condition: Stable Discharge Details Chief Complaint: Abd Prob Clinical Impression: Abdominal pain, Right testicular pain Primary Care Provider: Rosie Mcdonald ED Provider: Keesha Lemon Home Meds and New Rx's Prescriptions: New hydrocodone-acetaminophen [[place]] 7.5-325 mg tablet 1 tab PO Q6H PRN (Reason: pain) Qty: 6 RF: 0 No Action hydroxyzine pamoate 50 mg capsule 150 mg PO HS PRN (Reason: anxiety and insomnia) Qty: 270 RF: 3 buspirone 30 mg tablet 30 mg PO BID Qty: 180 RF: 3 omeprazole 20 mg capsule,delayed release(DR/EC) 20 mg PO BID Qty: 180 RF: 3 alum-mag hydroxide-simeth [Antacid Regular Strength] 355 ML suspension 30 ml PO PRN RF: 0 albuterol sulfate [ProAir HFA] 8.5 GM HFA aerosol inhaler 1 - 2 puff Inhalation Q4-6H PRN Qty: 1 RF: 3 topiramate 25 MG tablet 50 mg PO HS Qty: 60 RF: 3 doxycycline hyclate 100 mg capsule 100 mg PO BID 14 Days Qty: 28 RF: 0 Discharge Instructions Instructions: Testicle Pain (ED), Abdominal Pain (ED) Additional Instructions: Please continue to take your Tylenol and Motrin that you have at home for your pain. Please use more tight fitting underwear. Please follow-up with your ultrasound at 9 AM on Sunday morning. Please take the pain medication only as needed. if you notice any worsening of your symptoms, or any new symptoms such as vomiting, diarrhea, fever, chills, shortness of breath, chest pain, numbness , weakness, or fainting , please return immediately to the emergency department for reevaluation. Please follow up with your primary care provider as soon as possible for reassessment and reevaluation. As always, it was a pleasure participating in your medical care today. Referrals: Rosie Mcdonald NP [Primary Care Provider] - Medical Decision Making The case is signed out to be my my colleague Dr. Lemon. Patient's laboratory workup has returned and shows no significant abnormalities. No evidence of significant leukocytosis, no bandemia, no cathy electrolyte abnormality, urinalysis is benign. No evidence of infection. Patient's abdominal exam on repeat examination continues to appear benign with no significant concerning tenderness suggestive of an acute abdomen. CT scan results have returned and shows no evidence of acute appendicitis or other significant acute abnormality. At this time I feel that the patient is safe for discharge home with close follow-up with his primary care provider. he does have some minimal testicular ache, although I feel this is most likely secondary to a chronic varicocele or continued epididymitis, with no evidence of a negative cremasteric reflex, no evidence of pain out of proportion, horizontal lie, or elevated testicle he shows no clinical signs or symptoms suggestive of testicular torsion and no other acute testicular abnormality. We will attempt to set up outpatient ultrasound of his testicles and scrotum for further evaluation and differentiation if the patient is inclined to this. I had a long discussion with the patient regarding potential red flags for which to return, the patient understands. I have extensively reviewed the treatment plan and discharge instructions with the patient. I have addressed all patient concerns at this time. The patient was made aware of what symptoms to monitor for that would warrant a return to the emergency department. Discussed the plan with the patient, they demonstrate verbal understanding and agreement with our assessment and plan at this time. HPI General Mode of arrival: ambulatory . Date/Time Provider Initiated Documentation: 03/08/18 19:02 . Limitations to Documentation: no limitations . Information obtained by: patient . Related Data Home Medications Medication Instructions Recorded Confirmed alum-mag hydroxide-simeth [Antacid 30 ml PO PRN ml 05/30/17 03/08/18 Regular Strength] albuterol sulfate [Proair Hfa] 1 - 2 puff INHALATION Q4-6H PRN #1 11/14/1703/08 inhaler topiramate 50 mg PO HS #60 tab-cap 01/07/18 03/08/18 buspirone 30 mg tablet 30 mg PO BID #180 tab-cap 01/31/18 03/08/18 hydroxyzine pamoate 50 mg capsule 150 mg PO HS PRN #270 tab-cap 01/31/18 omeprazole 20 mg capsule,delayed 20 mg PO BID #180 tab-cap 01/31/18 03/08/18 release doxycycline hyclate 100 mg PO BID 14 Days #28 cap 02/24/18 03/08/18 hydrocodone-acetaminophen [[place]] 1 tab PO Q6H PRN #6 tab 10/12/18 Previous Rx's Medication Instructions Recorded albuterol sulfate [Proair Hfa] 1 - 2 puff INHALATION Q4-6H PRN #1 11/14/17 inhaler topiramate 50 mg PO HS #60 tab-cap 01/07/18 buspirone 30 mg tablet 30 mg PO BID #180 tab-cap 01/31/18 hydroxyzine pamoate 50 mg capsule 150 mg PO HS PRN #270 tab-cap 01/31/18 omeprazole 20 mg capsule,delayed 20 mg PO BID #180 tab-cap 01/31/18 release doxycycline hyclate 100 mg PO BID 14 Days #28 cap 02/24/18 hydrocodone-acetaminophen [[place]] 1 tab PO Q6H PRN #6 tab 03/08/18 Allergies Allergy/AdvReac Type Severity Reaction Status Date / Time No Known Allergies Allergy Unverified 03/08/18 19:04 General Stated Complaint: Abd Prob SERGE: 3 PFSH Family History Mother Diabetes Father Neoplasm Heart disease Medical History Ureteropelvic junction (UPJ) obstruction, left (Resolved 06/23/16) Tobacco use disorder (Chronic) Heart palpitations (Inactive 09/30/15) Obesity (Chronic 09/02/13) Kidney stone (Inactive) Intermittent explosive disorder (Chronic 05/05/14) History of squamous cell carcinoma of skin (Resolved 04/09/17) Horseshoe kidney (Chronic 06/23/16) History of concussion (Chronic) Gastroesophageal reflux disease (Chronic 11/14/17) Depression (Chronic 09/02/13) Anxiety (Chronic 05/05/14) Acne vulgaris (Resolved Unknown) Acute pain of right shoulder (Resolved 10/07/15) Social History current occupational status: employed current occupation: [employer] pets and animals: Yes pets and animals: cat(s) Smoking/Tobacco Use Status: Current every day alcohol intake: current alcohol intake frequency: other substance use type: marijuana additional social history: Binge drinks ETOH up to 24 beers daily approximately 2-3x per week Surgical History EGD - MAC (07/27/17) Course Vital Signs Temperature 36.5 C 03/08/18 19:00 Pulse 78 03/08/18 19:00 Respiratory Rate 16 03/08/18 19:00 Blood Pressure 125/80 03/08/18 19:00 Pulse Oximetry 100 03/08/18 19:00 Temperature 36.5 C 03/08/18 19:00 Temperature Source Skin 03/08/18 19:00 Pulse 78 03/08/18 19:00 Respiratory Rate 16 03/08/18 19:00 Respiratory Effort Non-Labored 03/08/18 19:02 Blood Pressure 125/80 03/08/18 19:00 Pulse Oximetry 100 03/08/18 19:00 Pain Level 7 03/08/18 19:00 Lab/Test Results Lab/Test Results: Laboratory Tests Range/Units 03/08/18 03/08/18 03/08/18 19:15 19:20 19:20 WBC (4.4-10.8) k/cumm 6.28 RBC (4.50-6.00) m/cumm 4.43 L Hgb (13.5-17.5) g/dL 14.3 Hct (40.0-50.0) % 39.2 L MCV (80-95) fL 88.5 MCH (27.0-33.0) pg 32.3 MCHC (32.0-36.0) g/dL 36.5 H RDW (11.8-14.1) % 12.5 Plt Count (130-400) x1000/uL 175 MPV (8.0-11.0) fL 9.3 Immature Gran % 0.2 Neutrophils % 39.7 Lymphocytes % 47.6 Monocytes % 8.9 Eosinophils % 3.3 Basophils % 0.3 Absolute Neutrophils (1.2-6.7) k/cumm 2.49 Absolute Lymphocytes (1.2-3.4) k/cumm 2.99 Absolute Monocytes (0.11-0.7) k/cumm 0.56 Absolute Eosinophils (0.0-0.7) k/cumm 0.21 Absolute Basophils (0.0-0.2) k/cumm 0.02 Sodium (136-145) mmol/L 142 Potassium (3.5-5.1) mmol/L 3.7 Chloride (98-107) mmol/L 106 Carbon Dioxide (21.0-32.0) mmol/L 27.7 Anion Gap (3-11) mmol/L 8.3 BUN (7-18) mg/dL 17 Creatinine (0.70-1.30) mg/dL 1.19 Estimated GFR/1.73 m2 (mL/min/1.73m2) >= 60.00 Glucose (70-100) mg/dL 72 Calcium (8.5-10.1) mg/dL 8.6 Total Bilirubin (0.2-1.0) mg/dL 0.5 AST (15-37) U/L 17 ALT (12-78) U/L 30 Alkaline Phosphatase (46-116) U/L 56 Total Protein (6.4-8.2) g/dL 7.1 Albumin (3.4-5.0) g/dL 4.0 Lipase (73-393) U/L Urine Color (Yellow) Yellow Urine Clarity Clear Urine pH (5-8) 6.0 Ur Specific [place] (1.005-1.025) >= 1.030 H Urine Protein (Negative) mg/dL Negative Urine Ketones (Negative) mg/dL Negative Urine Blood (Negative) Negative Urine Nitrite (Negative) Negative Urine Bilirubin (Negative) Negative Urine Urobilinogen (Up TO 0.2) EU/dL 0.2 Ur Leukocyte Esterase (Negative) Negative Urine Glucose (Negative) mg/dL Negative Range/Units 03/08/18 19:20 WBC (4.4-10.8) k/cumm RBC (4.50-6.00) m/cumm Hgb (13.5-17.5) g/dL Hct (40.0-50.0) % MCV (80-95) fL MCH (27.0-33.0) pg MCHC (32.0-36.0) g/dL RDW (11.8-14.1) % Plt Count (130-400) x1000/uL MPV (8.0-11.0) fL Immature Gran % Neutrophils % Lymphocytes % Monocytes % Eosinophils % Basophils % Absolute Neutrophils (1.2-6.7) k/cumm Absolute Lymphocytes (1.2-3.4) k/cumm Absolute Monocytes (0.11-0.7) k/cumm Absolute Eosinophils (0.0-0.7) k/cumm Absolute Basophils (0.0-0.2) k/cumm Sodium (136-145) mmol/L Potassium (3.5-5.1) mmol/L Chloride (98-107) mmol/L Carbon Dioxide (21.0-32.0) mmol/L Anion Gap (3-11) mmol/L BUN (7-18) mg/dL Creatinine (0.70-1.30) mg/dL Estimated GFR/1.73 m2 (mL/min/1.73m2) Glucose (70-100) mg/dL Calcium (8.5-10.1) mg/dL Total Bilirubin (0.2-1.0) mg/dL AST (15-37) U/L ALT (12-78) U/L Alkaline Phosphatase (46-116) U/L Total Protein (6.4-8.2) g/dL Albumin (3.4-5.0) g/dL Lipase (73-393) U/L 161 Urine Color (Yellow) Urine Clarity Urine pH (5-8) Ur Specific [place] (1.005-1.025) Urine Protein (Negative) mg/dL Urine Ketones (Negative) mg/dL Urine Blood (Negative) Urine Nitrite (Negative) Urine Bilirubin (Negative) Urine Urobilinogen (Up TO 0.2) EU/dL Ur Leukocyte Esterase (Negative) Urine Glucose (Negative) mg/dL
[2018-03-08 21:12] VITALS: BP 106/61; PULSE 65; RESP 16; O2SAT 98
== END 2018-03-08 21:29 | disposition still patient (30) ==
LOC: ER 20:15
PROVIDERS: Emergency Provider Physician Assistant; PCP Nurse Practitioner Family
DX: R10.31 Right lower quadrant pain (principal); N50.811 Right testicular pain
CPT/HCPCS: 36415; 80053; 83690; 96361; 96374; 96375; 99284; 74177; 81003; 85025; J1885; J2405

== ENCOUNTER 2018-03-11 01:20 | Outpatient (CLI) | payer MEDICAID, SELFPAY ==
--- NOTE | 2018-03-11 09:18 | DI.US_ITS ---
SYMPTOM/DIAGNOSIS: BILAT LOW ABD PAIN, SCROTAL PAIN, ? STONE RENAL ULTRASOUND: Renal ultrasound was performed according to the usual protocol. There is a history of horseshoe kidney. There is mild hydronephrosis of the left renal moiety. No definite hydronephrosis identified on the right although there is prominent extrarenal pelvis. No nephrolithiasis identified by ultrasound criteria. Urinary bladder is unremarkable in appearance with pre and post void urinary bladder volume measurements of 174 cc's and 1 cc respectively. CONCLUSION: Mild left hydronephrosis in a patient with horseshoe kidney.
== END 2018-03-11 01:40 ==
PROVIDERS: PCP Nurse Practitioner Family; Visit Provider Nurse Practitioner Family
DX: R10.31 Right lower quadrant pain (principal); R10.32 Left lower quadrant pain; N50.82 Scrotal pain; N13.30 Unspecified hydronephrosis
CPT/HCPCS: 76770

== ENCOUNTER 2018-03-11 01:24 | Outpatient (CLI) | payer MEDICAID, SELFPAY ==
--- NOTE | 2018-03-11 10:10 | DI.US_ITS ---
SYMPTOM/DIAGNOSIS: RT TESTICULAR PAIN SCROTAL ULTRASOUND: Scrotal ultrasound was performed according to the usual protocol. The testes are normal in echotexture and show normal symmetrical vascular flow bilaterally. The epididymi are unremarkable in appearance with an incidental 2 mm. left epididymal cyst. There is a question of a small left varicocele. CONCLUSION: No evidence of testicular torsion or epididymitis. Question small left varicocele.
== END 2018-03-11 01:44 ==
PROVIDERS: PCP Nurse Practitioner Family; Visit Provider Physician Assistant
DX: N50.811 Right testicular pain (principal); I86.1 Scrotal varices
CPT/HCPCS: 76870

== ENCOUNTER 2018-07-30 00:46 | Outpatient (CLI) | payer MEDICAID, SELFPAY ==
--- NOTE | 2018-07-30 15:55 | DI.US_ITS ---
SYMPTOM/DIAGNOSIS: ? SMALL INGUINAL HERNIA, RLQ ABD PAIN, R10.31 HERNIA ULTRASOUND: No hernia is demonstrated on the images provided. No mass or focal fluid collection is seen in the soft tissues.
== END 2018-07-30 01:06 ==
PROVIDERS: PCP Nurse Practitioner Family; Visit Provider Surgery
DX: R10.31 Right lower quadrant pain (principal)
CPT/HCPCS: 76857

== ENCOUNTER 2019-01-20 19:09 | Emergency (ER) | payer MEDICAID, SELFPAY ==
[2019-01-20 19:15] VITALS: BP 147/91; PULSE 67; RESP 18; TEMP 36.9; O2SAT 98
--- NOTE | 2019-01-20 19:21 | ED.GENADUL_ITS ---
Discharge Plan Disposition Patient Disposition: HOME Condition: Improving Discharge Details Chief Complaint: AnimalBite Clinical Impression: Cat bite of right hand Primary Care Provider: Rosie Mcdonald ED Provider: Julio Cesar Dasilva Home Meds and New Rx's Prescriptions: New amoxicillin-pot clavulanate 875-125 mg tablet 1 tab PO BID 10 Days Qty: 20 RF: 0 Continued omeprazole 20 mg capsule,delayed release(DR/EC) 20 mg PO BID Qty: 180 RF: 3 hydroxyzine pamoate 50 mg capsule 150 mg PO HS PRN (Reason: anxiety and insomnia) Qty: 270 RF: 3 buspirone 30 mg tablet 30 mg PO BID Qty: 180 RF: 3 alum-mag hydroxide-simeth [Antacid Regular Strength] 355 ML suspension 30 ml PO PRN RF: 0 albuterol sulfate [ProAir HFA] 8.5 GM HFA aerosol inhaler 1 - 2 puff Inhalation Q4-6H PRN Qty: 1 RF: 3 Discharge Instructions Instructions: Animal Bite (ED) Additional Instructions: Elevate above the level of the heart to reduce pain and swelling. Tylenol as needed for pain. May soak 3-4 times daily in warm water with Epson salts Take antibiotics as prescribed. Return for increasing pain, redness that spreads up the arm, the development of the fever, or any acute concerns Discharge Data Discharge Date/Time-TO BE ENTERED AT DEPARTURE: 01/20/19 19:40 Medical Decision Making 28yom presents from home after being bitten R hand by his immunized cat last night. Mild dorsal swelling, mild erythema present. Full ROM no pain with passive ROM. Patient referred for XR to ruleout underlying bony fracture or retained FB. XR: No acute findings. Wound cleansed and dressed. Will place on a course of Augmentin. Discussed home management and return precautions with patient prior to discharge. HPI General Mode of arrival: ambulatory . Date/Time Provider Initiated Documentation: 01/20/19 19:10 . Limitations to Documentation: no limitations . Information obtained by: patient . History of Present Illness 28 year old M presents to the emergency department with the chief complaint of R hand pain after cat bite last night, described as moderate, Quality is described as dull and constant, and is localized to the right and upper extremity. Patient reports no radiation. Patient started experiencing this hour(s) and it has been constant. No relieving factors improve symptom(s), No exacerbating factors reported . Patient notes other (mild redness); denies fever/chills. Patient did receive the following treatments prior to arrival, none Related Data Home Medications Medication Instructions Recorded Confirmed alum-mag hydroxide-simeth [Antacid 30 ml PO PRN ml 05/30/17 07/19/18 Regular Strength] albuterol sulfate [ProAir HFA] 1 - 2 puff INHALATION Q4-6H PRN #1 11/14/17 01/20/19 inhaler buspirone 30 mg tablet 30 mg PO BID #180 tab-cap 01/31/18 01/20/19 hydroxyzine pamoate 50 mg capsule 150 mg PO HS PRN #270 tab-cap 01/31/18 01/20/19 omeprazole 20 mg capsule,delayed 20 mg PO BID #180 tab-cap 04/29/18 01/20/19 release amoxicillin-pot clavulanate 1 tab PO BID 10 Days #20 tab 01/20/19 Previous Rx's Medication Instructions Recorded albuterol sulfate [ProAir HFA] 1 - 2 puff INHALATION Q4-6H PRN #1 11/14/17 inhaler buspirone 30 mg tablet 30 mg PO BID #180 tab-cap 01/31/18 hydroxyzine pamoate 50 mg capsule 150 mg PO HS PRN #270 tab-cap 01/31/18 omeprazole 20 mg capsule,delayed 20 mg PO BID #180 tab-cap 04/29/18 release amoxicillin-pot clavulanate 1 tab PO BID 10 Days #20 tab 01/20/19 Allergies Allergy/AdvReac Type Severity Reaction Status Date / Time No Known Allergies Allergy Verified 01/20/19 19:19 General Stated Complaint: AnimalBite SERGE: 4 Review of Systems Review of Systems no fever, cat is immunized. patient has otherwise been well. 4 systems reviewed and otherwise neg [facility] Medical History Acne vulgaris (Resolved Unknown) Acute pain of right shoulder (Resolved 10/07/15) Anxiety (Chronic 05/05/14) Constipation (Chronic) Depression (Chronic 09/02/13) Gastroesophageal reflux disease (Chronic 11/14/17) Heart palpitations (Inactive 09/30/15) History of concussion (Chronic) History of squamous cell carcinoma of skin (Resolved 04/09/17) Horseshoe kidney (Chronic 06/23/16) Intermittent explosive disorder (Chronic 05/05/14) Kidney stone (Inactive) Numbness and tingling of both feet (Chronic) Obesity (Chronic 09/02/13) Tobacco use disorder (Inactive) Ureteropelvic junction (UPJ) obstruction, left (Resolved 06/23/16) Surgical History EGD - MAC (07/27/17) Social History Smoking/Tobacco Use Status: Former Tobacco Use Quit Date: 02/23/18 Alcohol Intake: current Alcohol Intake frequency: a few times a month Alcohol type: beer Drug use: Daily Substance use type: marijuana current occupation: [employer] Pets and animals: Yes Pets and animals: cat(s) Sexually active: Yes Current gender identity: male What type of physical activity do you participate in: regular exercise Frequency: daily Do you feel safe at home: Yes Do you feel safe in your relationship?: Yes Additional Social history: Binge drinks ETOH up to 24 beers daily approximately 2-3x per week Exam Narrative Exam Narrative: GEN: awake, alert, oriented 3. Pleasant, well groomed, interactive. HEAD: Normocephalic, atraumatic EYES: PERRL, EOMI NECK: Full ROM, no SHAMA, no menigismus EXT: Full ROM, 2+ rad pulse bilateral. R hand with dorsal abrasions and mild swelling with discrete overlying erythema Neuro: Grossly normal neurologic exam, conversant, interactive. Psych: Speech fluent, thoughts congruent, affect normal Course Vital Signs Temperature 36.9 C 01/20/19 19:15 Pulse 67 01/20/19 19:15 Respiratory Rate 18 01/20/19 19:15 Blood Pressure 147/91 H 01/20/19 19:15 Pulse Oximetry 98 01/20/19 19:15 Temperature 36.9 C 01/20/19 19:15 Temperature Source Skin 01/20/19 19:15 Pulse 67 01/20/19 19:15 Respiratory Rate 18 01/20/19 19:15 Respiratory Effort 01/20/19 19:19 Blood Pressure 147/91 H 01/20/19 19:15 Blood Pressure Position Sitting 01/20/19 19:15 Pulse Oximetry 98 01/20/19 19:15 Oxygen Delivery Method Room Air 01/20/19 19:15 Oxygen Flow Rate 0 01/20/19 19:15 Pain Level 1 01/20/19 19:15
--- NOTE | 2019-01-20 19:30 | DI.RAD_ITS ---
SYMPTOM/DIAGNOSIS: CAT BITE RT PAIN AT DORSUM RIGHT HAND: No fracture or dislocation is seen. IMPRESSION: Negative right hand.
[2019-01-20] MEDS: Amoxicillin 875/Clav. 125 TAB PO (19:36)
--- NOTE | 2019-01-20 19:59 | DI.VRAD_ITS ---
EXAM: XR Right Hand EXAM DATE/TIME: 01/20/2019 7:22 PM CLINICAL HISTORY: 28 years old, male; Injury or trauma; Injury history: Cat bite to hand dorsum; Initial encounter; Right; Injury date: 01/20/19; Injury details: Cat bite to dorsum of hand with redness and swelling TECHNIQUE: Imaging protocol: XR Right hand. Views: 3 or more views. COMPARISON: CR RIGHT THUMB 01/31/2015 5:00 PM FINDINGS: Bones/joints: There is no fracture dislocation. Soft tissues: There is no radiopaque foreign body.There is no gas in the soft tissue. IMPRESSION: No acute abnormalities noted Dictated and Authenticated by: Andre Duncan MD. Ordering:RITIKA Harrell MD
--- NOTE | 2019-01-21 06:47 | NUR.NOTE ---
Animal bite form faxed to [facility] health officer Ernie [phone].Nursing Note:
== END 2019-01-20 19:40 | disposition home or self-care (01) ==
PROVIDERS: Emergency Provider Emergency Medicine; PCP Nurse Practitioner Family
DX: S61.451A Open bite of right hand, initial encounter (principal); W55.01XA Bitten by cat, initial encounter
CPT/HCPCS: 99283; 73130

== ENCOUNTER 2019-01-25 09:31 | Emergency (ER) | payer MEDICAID, SELFPAY ==
[2019-01-25 09:34] VITALS: BP 129/78; PULSE 82; RESP 16; TEMP 36.6; O2SAT 98
[2019-01-25] MEDS: Normal Saline 1,000 ML 1000 ML IV (09:57)
[2019-01-25 09:59] LABS: Lactate 1.3 mmol/L (0.6-1.4)
[2019-01-25 10:00] LABS: Abs Immature Grans 0.02 k/cumm (0.0-0.09); Absolute Basophil Count 0.01 k/cumm (0.0-0.2); Absolute Eosinophil Count 0.06 k/cumm (0.0-0.7); Absolute Lymphocyte Count 1.41 k/cumm (1.2-3.4); Absolute Neutrophil Count 6.57 k/cumm (1.2-6.7); Basophils % 0.1; Eosinophils % 0.7; HCT 42.8 % (40.0-50.0); HGB 15.5 g/dL (13.5-17.5); Immature Grans % 0.2; Lymphocytes % 16.6; Mean Corp. HGB Concentration 36.2 g/dL (32.0-36.0); Mean Corpuscular Hemoglobin 32.4 pg (27.0-33.0); Mean Corpuscular Volume 89.4 fL (80-95); Mean Platelet Volume 8.8 fL (8.0-11.0); Monocytes % 4.7; Neutrophils % 77.7; Platelet Count 200 x1000/uL (130-400); RBC 4.79 m/cumm (4.50-6.00); RBC Distribution Width 12.2 % (11.8-14.1); White Blood Cell Count 8.47 k/cumm (4.4-10.8)
[2019-01-25] MEDS: Ondansetron 4 MG/2 ML VIAL IVP (10:00)
--- NOTE | 2019-01-25 10:09 | W.ED.GENAD ---
Discharge Plan Disposition Patient Disposition: HOME Condition: Improving Discharge Details Chief Complaint: Abd Prob Clinical Impression: Nausea & vomiting, Gastroesophageal reflux disease Primary Care Provider: Rosie Mcdonald ED Provider: Bertram He Home Meds and New Rx's Prescriptions: New ranitidine HCl 150 mg tablet 150 mg PO QHS Qty: 30 RF: 0 ondansetron 4 mg tablet,disintegrating 4 mg PO Q8H PRN (Reason: nausea and vomiting) Qty: 10 RF: 0 Continued omeprazole 20 mg capsule,delayed release(DR/EC) 20 mg PO BID Qty: 180 RF: 3 hydroxyzine pamoate 50 mg capsule 150 mg PO HS PRN (Reason: anxiety and insomnia) Qty: 270 RF: 3 buspirone 30 mg tablet 30 mg PO BID Qty: 180 RF: 3 alum-mag hydroxide-simeth [Antacid Regular Strength] 355 ML suspension 30 ml PO PRN RF: 0 albuterol sulfate [ProAir HFA] 8.5 GM HFA aerosol inhaler 1 - 2 puff Inhalation Q4-6H PRN Qty: 1 RF: 3 Discontinued amoxicillin-pot clavulanate 875-125 mg tablet 1 tab PO BID 10 Days Qty: 20 RF: 0 Discharge Instructions Instructions: Gastroesophageal Reflux Disease (ED), Acute Nausea and Vomiting (ED) Additional Instructions: Please continue to take your medication as prescribed except you may stop your antibiotic. Avoid discussed foods, caffeine, and alcohol as this may be making your symptoms worse. Follow-up with your primary care provider for reassessment or further testing or treatment as needed if you do not improve over the next week. Also return to the emergency department for any new or significant worsening of symptoms or if your wound site begins looking infected again. Stand Alone Forms: Work Release Referrals: Rosie Mcdonald, [employer] [Primary Care Provider] - (As needed for reassessment or further testing) Discharge Data Discharge Date/Time-TO BE ENTERED AT DEPARTURE: 01/25/19 11:43 Medical Decision Making Patient presenting to the emergency department for chief complaint of abdominal pain, nausea vomiting. Patient states that approximately 5 days ago he started on antibiotics for animal bite. 3 days ago he started developing some abdominal discomfort, nausea and vomiting. Patient attempted to go to work today and due to his severity of symptoms is now presenting to the emergency department. Patient does state significant history of GERD with also similar presentation as he is having today. Patient is stable, nontoxic in appearance with no hypotension, no tachycardia and is afebrile. Physical exam shows tenderness to the epigastrium otherwise no peritoneal findings, no surgical abdominal findings, no rigidity or guarding. Given benign abdominal exam and history of recent antibiotics along with history of GERD I do not feel that any imaging is required of the abdomen but labs would be prudent. Pending results patient given Zofran, IV fluids, and GI cocktail. Review of labs show unremarkable CBC and CMP with normal lipase. Reassessed patient he did state some improvement but not full improvement so patient given p.o. ranitidine. Reassessed abdomen and no new or worsening symptoms so again do not feel that CT imaging is required at this point given patient's history. As far as continuing antibiotics patient's hand was reassessed and shows no erythema, no swelling, and full range of motion. Given that patient has been on antibiotics for 5 days and signs of infection are nonexistent I do feel that patient can stop antibiotics and just continue to observe wound. Patient was agreeable to this plan of care. Return precautions were discussed. After discussion of diagnosis and plan of care patient has no further needs, questions, or concerns and states clear understanding to return to the emergency department for any worsening symptoms. HPI General Mode of arrival: ambulatory. Date/Time Provider Initiated Documentation: 01/25/19 09:34. Limitations to Documentation: no limitations. Information obtained by: patient, family and old records reviewed. History of Present Illness 28 year old M presents to the emergency department with the chief complaint of Abdominal pain, nausea vomiting, described as moderate, with intensity rated at 8. Quality is described as aching and sharp, and is localized to the abdomen. Patient started experiencing this day(s) (3) and it has been constant. No relieving factors improve symptom(s), Medication worsens symptoms (Starting antibiotics) . Patient notes no other symptoms.. Patient did receive the following treatments prior to arrival, other (Took Tums last night) Related Data Home Medications Medication Instructions Recorded Confirmed alum-mag hydroxide-simeth [Antacid 30 ml PO PRN ml 05/30/17 07/19/18 Regular Strength] albuterol sulfate [ProAir HFA] 1 - 2 puff INHALATION Q4-6H PRN #1 11/14/17 01/20/19 inhaler buspirone 30 mg tablet 30 mg PO BID #180 tab-cap 01/31/18 01/20/19 hydroxyzine pamoate 50 mg capsule 150 mg PO HS PRN #270 tab-cap 01/31/18 01/20/19 omeprazole 20 mg capsule,delayed 20 mg PO BID #180 tab-cap 04/29/18 01/20/19 release ondansetron 4 mg PO Q8H PRN #10 tab 01/25/19 ranitidine HCl 150 mg PO QHS #30 tab 01/25/19 Previous Rx's Medication Instructions Recorded albuterol sulfate [ProAir HFA] 1 - 2 puff INHALATION Q4-6H PRN #1 11/14/17 inhaler buspirone 30 mg tablet 30 mg PO BID #180 tab-cap 01/31/18 hydroxyzine pamoate 50 mg capsule 150 mg PO HS PRN #270 tab-cap 01/31/18 omeprazole 20 mg capsule,delayed 20 mg PO BID #180 tab-cap 04/29/18 release ondansetron 4 mg PO Q8H PRN #10 tab 01/25/19 ranitidine HCl 150 mg PO QHS #30 tab 01/25/19 Allergies Allergy/AdvReac Type Severity Reaction Status Date / Time No Known Allergies Allergy Verified 01/20/19 19:19 General Stated Complaint: Abd Prob SERGE: 3 Review of Systems Constitutional Denies chills, Denies fever(s) and Reports poor appetite Cardiovascular Denies chest pain and Denies dyspnea Respiratory Denies cough and Denies dyspnea Gastrointestinal Reports as per HPI, Reports abdominal pain, Denies melena, Denies change in bowel habits, Denies constipation, Denies diarrhea, Reports nausea and Reports vomiting Genitourinary Denies hematuria, Denies difficulty urinating and Denies dysuria Integumentary/Breasts Denies rash [facility] Medical History Acne vulgaris (Resolved Unknown) Acute pain of right shoulder (Resolved 10/07/15) Anxiety (Chronic 05/05/14) Constipation (Chronic) Metamucil PRN Depression (Chronic 09/02/13) Gastroesophageal reflux disease (Chronic 11/14/17) Dyspepsia; 07/27/2017 EGD (Dr. Vazquez): mild gastritis (bx's nml) Heart palpitations (Inactive 09/30/15) History of concussion (Chronic) Work injury History of squamous cell carcinoma of skin (Resolved 04/09/17) Dr. Rodríguez Horseshoe kidney (Chronic 06/23/16) Intermittent explosive disorder (Chronic 05/05/14) Kidney stone (Inactive) Urol Dr Powell 2009 L hydro; Dr Asher; Dr Carrera 08/2014; recur 02/2016: 90% calciumOxalate monophosphate 10% Ca Phosphate (apatate) Numbness and tingling of both feet (Chronic) 2018: [place] NCS Obesity (Chronic 09/02/13) BMI 38; best wt/10 yr = 180 Tobacco use disorder (Inactive) QUIT 01/2018 Ureteropelvic junction (UPJ) obstruction, left (Resolved 06/23/16) Surgical History EGD - MAC (07/27/17) Family History Mother Diabetes Father Neoplasm Prostate CA dx'ed 70 y/o Heart disease Social History Smoking/Tobacco Use Status: Former Tobacco Use Quit Date: 02/23/18 Alcohol Intake: current Alcohol Intake frequency: a few times a month Alcohol type: beer Drug use: Daily Substance use type: marijuana Details: smokes week a few times per week current occupation: [employer] Pets and animals: Yes Pets and animals: cat(s) Sexually active: Yes Current gender identity: male What type of physical activity do you participate in: regular exercise Frequency: daily Do you feel safe at home: Yes Do you feel safe in your relationship?: Yes Additional Social history: Binge drinks ETOH up to 24 beers daily approximately 2-3x per week Exam Const General: cooperative Orientation: alert, awake and oriented x3 Resp Effort & Inspection: normal respiratory effort and able to speak in complete sentences Auscultation: clear to auscultation bilaterally Cardio Rate: regular rate Rhythm: regular rhythm Heart Sounds: S1 normal and S2 normal GI Palpation: soft, no hepatosplenomegaly, not firm, no guarding, no masses, no pulsatile masses, not rigid, no splenomegaly and tender in the epigastrum; not at McBurney's point, Nichols's sign negative, psoas sign negative and with no rebound tenderness Auscultation: normal bowel sounds Back/Spine/Pelvis Back: no CVA tenderness Neuro General: alert, awake, oriented x3, gait normal and moves all extremities Course Vital Signs Temperature 36.6 C 01/25/19 09:34 Pulse 82 01/25/19 09:34 Respiratory Rate 16 01/25/19 09:34 Blood Pressure 129/78 01/25/19 09:34 Pulse Oximetry 98 01/25/19 09:34 Temperature 36.6 C 01/25/19 09:34 Temperature Source Skin 01/25/19 09:34 Pulse 82 01/25/19 09:34 Respiratory Rate 16 01/25/19 09:34 Respiratory Effort Non-Labored 01/25/19 09:38 Blood Pressure 129/78 01/25/19 09:34 Blood Pressure Position Supine 01/25/19 09:34 Pulse Oximetry 98 01/25/19 09:34 Oxygen Delivery Method Room Air 01/25/19 09:34 Oxygen Flow Rate 0 01/25/19 09:34 Lab/Test Results Lab/Test Results: Laboratory Tests Range/Units 01/25/19 01/25/19 09:55 09:55 WBC (4.4-10.8) k/cumm 8.47 RBC (4.50-6.00) m/cumm 4.79 Hgb (13.5-17.5) g/dL 15.5 Hct (40.0-50.0) % 42.8 MCV (80-95) fL 89.4 MCH (27.0-33.0) pg 32.4 MCHC (32.0-36.0) g/dL 36.2 H RDW (11.8-14.1) % 12.2 Plt Count (130-400) x1000/uL 200 MPV (8.0-11.0) fL 8.8 Immature Gran % 0.2 Neutrophils % 77.7 Lymphocytes % 16.6 Monocytes % 4.7 Eosinophils % 0.7 Basophils % 0.1 Absolute Neutrophils (1.2-6.7) k/cumm 6.57 Absolute Lymphocytes (1.2-3.4) k/cumm 1.41 Absolute Monocytes (0.11-0.7) k/cumm 0.40 Absolute Eosinophils (0.0-0.7) k/cumm 0.06 Absolute Basophils (0.0-0.2) k/cumm 0.01 Lactate (0.6-1.4) mmol/L 1.3
[2019-01-25 10:19] LABS: Lipase 58 U/L (73-393); Magnesium 1.8 mg/dL (1.8-2.4)
[2019-01-25 10:22] LABS: ALT 25 U/L (16-63); AST 19 U/L (15-37); Albumin 4.2 g/dL (3.4-5.0); Alkaline Phosphatase 47 U/L (46-116); Anion Gap 10.1 mmol/L (3-11); BUN 11 mg/dL (7-18); Bilirubin, Total 0.6 mg/dL (0.2-1.0); CO2 26.9 mmol/L (21.0-32.0); CREATININE 1.06 mg/dL (0.70-1.30); Calcium 8.8 mg/dL (8.5-10.1); Chloride 106 mmol/L (98-107); Glucose 107 mg/dL (70-100); Potassium 4.3 mmol/L (3.5-5.1); Sodium 143 mmol/L (136-145); Total Protein 7.4 g/dL (6.4-8.2)
[2019-01-25 11:34] VITALS: BP 115/61; PULSE 81; RESP 16; O2SAT 100
== END 2019-01-25 11:43 | disposition home or self-care (01) ==
PROVIDERS: Emergency Provider Nurse Practitioner Family; PCP Nurse Practitioner Family
DX: R11.2 Nausea with vomiting, unspecified (principal); K21.9 Gastro-esophageal reflux disease without esophagitis; R10.13 Epigastric pain
CPT/HCPCS: 36415; 80053; 83690; 96361; 96374; 99284; 83605; 83735; 85025; 99283; J2405

== ENCOUNTER 2019-03-05 16:18 | Outpatient (CLI) | payer MEDICAID, SELFPAY ==
--- NOTE | 2019-03-05 13:32 | DI.RAD_ITS ---
EXAM: XR THUMB LT INDICATION: crushing injury 5 days ago, r/o fx [id number] INJURY. COMPARISON: XR hand RT complete from 01/20/2019 TECHNIQUE: 2D digital imaging was performed. FINDINGS: There is no evidence of an acute fracture or dislocation.
== END 2019-03-05 16:38 ==
PROVIDERS: PCP Nurse Practitioner Family; Visit Provider Nurse Practitioner Family
DX: S67.02XD Crushing injury of left thumb, subsequent encounter
CPT/HCPCS: 73140

== ENCOUNTER 2021-04-28 23:56 | Emergency (ER) | payer MEDICAID, SELFPAY ==
--- NOTE | 2021-04-28 23:45 | RT.EKG_ITS ---
APPROVED REPORT Exam: Resting ECG Reason for Exam: chest pain Patient Location: E HR:87 bpm ECG Measurements Heart Rate 87 AXIS [place] 123 P 70 QRSd 101 QRS 2 QT 364 T 70 QTc 439 Conclusion Sinus rhythm...normal P axis, V-rate 60- 99 Normal [place] Normal Electrocardiogram
[2021-04-29] VITALS (44 sets, daily range): BP systolic 123–179; BP diastolic 74–90; PULSE 74–104; RESP 8–31; TEMP 37; O2SAT 96–100
--- NOTE | 2021-04-29 00:04 | ED.GENADUL_ITS ---
Discharge Plan Disposition Patient Disposition: HOME Condition: Good Discharge Details Clinical Impression: Chest pain Primary Care Provider: Rosie Mcdonald ED Provider: Theron Galindo [place] Meds and New Rx's Prescriptions: Continued buspirone 30 mg tablet 30 mg PO BID Qty: 180 RF: 3 hydroxyzine pamoate 50 mg capsule 150 mg PO HS PRN (Reason: anxiety and insomnia) Qty: 270 RF: 3 alum-mag hydroxide-simeth [Antacid Regular Strength] 355 ML suspension 30 ml PO PRN RF: 0 albuterol sulfate [ProAir HFA] 90 mcg/actuation HFA aerosol inhaler 1 - 2 puff Inhalation Q4-6H PRN Qty: 1 RF: 3 Discharge Instructions Instructions: Chest Pain (ED) Additional Instructions: Your evaluation tonight is reassuring. EKG, chest x-ray, laboratory studies all good. Symptoms seem to be GI related and would avoid drinking as many energy drinks in the future as you did today. Please follow-up with primary care next week. Return to ED for new or worsening pain, shortness of breath, other concerns. Referrals: Rosei Mcdonald, RESIDENTIAL PROPERTY MANAGER [Primary Care Provider] - Medical Decision Making Patient presenting to ED with upper abdominal discomfort, nausea and belching which subsequently became chest pain left arm numbness and tingling. He did have full monster energy drinks tonight. He did take Vistaril before coming. He has no chest pain or paresthesias at this time. His exam is unremarkable. He is neurologically intact. By history does not appear to have had any type of weakness and it was more paresthesia and loss of sensation to me upper extremity. His EKG is normal. I do not feel that this represents CVA/TIA given the positive neurologic symptoms of paresthesia (numbness/tingling with sensation still present) and no other neurologic symptoms. Doubt this is cardiac ischemia given his age though he does have a history of smoking and is overweight. We will proceed with laboratory studies and repeat EKG and troponin at 3 hours. Chest x-ray ordered. Aspirin and GI cocktail given. Patient's initial labs are unremarkable with negative troponin. Chest x-ray with no acute changes. Patient symptomatically much improved after GI cocktail. Will plan for repeat EKG and troponin in 3 hours and if negative discharge home to follow-up with PCP. Repeat EKG and troponin remain negative. Patient remains asymptomatic. Discharge home to follow-up with primary care next week. Would avoid too many Monster drinks in the future. Return to ED for new or worsening chest pain, shortness of breath, other concerns. Medical Records Medical records reviewed: Yes I reviewed the patient's medical records. Lab Data Lab results reviewed: Yes I reviewed the patient's lab results. ECG Data Attestation: I personally reviewed and interpreted this ECG (s) as follows: Prior ECG tracings: not available for review Interpretation: see EKG HPI General Mode of arrival: ambulatory . Date/Time Provider Initiated Documentation: 04/29/21 00:04 . Limitations to Documentation: no limitations . Information obtained by: patient . HPI Narrative: Patient presents to ED with complaint of chest pain and left arm tingling. Patient reports that he was watching a movie when he developed nausea and some upper abdominal discomfort with belching. Subsequently developed chest pain and his left arm became numb and tingly though it worked normally his sensation felt funny to him. He called the on-call physician. During that time he had difficulty walking because of a cramp in his calf on the left but no numbness in the leg and no weakness. Left upper extremity was never weak. No facial symptoms. Does admit to having four Monster drinks this evening. Still has some nausea. Does not have any chest pain or numbness in his arm currently. He did take some Vistaril before coming in. He denies headache. He denies fever or cough except for his chronic smoker's cough which is unchanged. Related Data Home Medications Medication Instructions Recorded Confirmed alum-mag hydroxide-simeth [Antacid 30 ml PO PRN ml 05/30/17 04/29/21 Regular Strength] albuterol sulfate 90 mcg/actuation 1 - 2 puff INHALATION Q4-6H PRN #1 03/22/20 04/29/21 aerosol inhaler inhaler buspirone 30 mg tablet 30 mg PO BID #180 tab-cap 02/07/21 04/29/21 hydroxyzine pamoate 50 mg capsule 150 mg PO HS PRN #270 tab-cap 02/07/21 04/29/21 Previous Rx's Medication Instructions Recorded albuterol sulfate 90 mcg/actuation 1 - 2 puff INHALATION Q4-6H PRN #1 03/22/20 aerosol inhaler inhaler buspirone 30 mg tablet 30 mg PO BID #180 tab-cap 02/07/21 hydroxyzine pamoate 50 mg capsule 150 mg PO HS PRN #270 tab-cap 02/07/21 Allergies Allergy/AdvReac Type Severity Reaction Status Date / Time No Known Allergies Allergy Verified 04/29/21 00:12 General SERGE: 3 Review of Systems Narrative: 03/10 Review of Systems completed and is negative except as stated above in HPI (Systems reviewed: Const, Eyes, ENT, Resp, CV, GI, , MSK, Skin, Neuro) [facility] Active Problem List Acne vulgaris (Acute Unknown) Acute pain of right shoulder (Acute 10/07/15) Acute low back pain (Acute) Neck pain, chronic (Acute) Constipation (Chronic) Numbness and tingling of both feet (Chronic) Obesity (Chronic 09/02/13) Intermittent explosive disorder (Chronic 05/05/14) History of concussion (Chronic) Medical History Anxiety (05/05/14) Depression (09/02/13) Gastroesophageal reflux disease (11/14/17) Dyspepsia; 07/27/2017 EGD (Dr. Vazquez): mild gastritis (bx's nml) History of squamous cell carcinoma of skin (04/09/17) Dr. Rodríguez Horseshoe kidney (06/23/16) Kidney stone Urol Dr Powell 2009 L hydro; Dr Asher; Dr Carrera 08/2014; recur 02/2016: 90% calciumOxalate monophosphate 10% Ca Phosphate (apatate) Surgical History EGD - MAC (07/27/17) Family History Mother Diabetes Father Neoplasm Prostate CA dx'ed 70 y/o Heart disease Social History Smoking/Tobacco Use Status: Former Tobacco Use Quit Date: 02/23/18 Smoking risk assessment performed?: Yes Alcohol Intake: current Alcohol Intake frequency: a few times a month Alcohol type: beer Drug use: Daily Substance use type: marijuana Details: smokes week a few times per week Caregiver/Support person: No Housing: apartment Communication Needs: None current occupation: [employer] Pets and animals: Yes Pets and animals: cat(s) Sexually active: Yes Current gender identity: male What type of physical activity do you participate in: regular exercise Frequency: daily Do you feel safe at home: Yes Do you feel safe in your relationship?: Yes Additional Social history: Binge drinks ETOH up to 24 beers daily approximately 2-3x per week Exam Narrative Exam Narrative: Const: WDWN male in NAD. HEENT: NC/AT. Normal facial exam. Eyes: PERRL and EOMI. Normal conjunctiva and sclera. Neck: Supple. Trachea midline. Lungs: Normal respiratory effort. Lungs are clear. Cor: RRR without murmur/gallop. Good radial pulses. GI: Soft. NT/ND. No guarding or rebound. Neuro: A+O x 3. Normal speech, mentation, gait. Cranial nerves II - XII grossly intact. No gross motor or sensory deficit. Ext: No C/C/E. No calf tenderness. Skin: Warm and dry without rash.
--- NOTE | 2021-04-29 00:15 | DI.RAD_ITS ---
Exam(s) XR CHEST 2V PA LATERAL EXAM: XR CHEST 2V PA LATERAL CLINICAL HISTORY: CP TECHNIQUE: 2D digital imaging was performed of the chest. Two images were obtained. PA and lateral views were obtained. COMPARISON: CR PORTABLE CHEST ONE VIEW from 08/01/2015 CR PORTABLE CHEST ONE VIEW from 08/01/2015 FINDINGS: MEDIASTINUM: Normal. HEART: Normal. PULMONARY VASCULATURE: Normal. LUNGS: Clear. PLEURAL SPACE: No pleural effusion or pneumothorax. BONE:Within normal limits for the patient's age. OTHER FINDINGS:Normal. IMPRESSION: No acute pulmonary findings. DATA REPOSITORY: RADIATION DOSE DELIVERED:
[2021-04-29 00:30] LABS: Abs Immature Grans 0.02 10^3/uL (0.0-0.06); Absolute Basophil Count 0.02 10^3/uL (0.0-0.2); Absolute Eosinophil Count 0.07 10^3/uL (0.0-0.7); Absolute Lymphocyte Count 2.28 10^3/uL (1.2-3.4); Absolute Monocyte Count 0.82 10^3/uL (0.1-0.8); Absolute Neutrophil Count 5.42 10^3/uL (1.2-6.7); Basophils % 0.2; Eosinophils % 0.8; HCT 43.1 % (40.0-50.0); HGB 15.1 g/dL (13.5-17.5); Immature Grans % 0.2; Lymphocytes % 26.4; MCH 32.1 pg (27.0-33.0); MCV 91.7 fL (80-95); MPV 8.7 fL (8.0-11.0); Monocytes % 9.5; Neutrophils % 62.9; Nucleated RBC 0 %; Platelet Count 203 10^3/uL (130-400); RDW 11.9 % (11.8-14.1); WBC 8.63 10^3/uL (4.4-10.8)
[2021-04-29] MEDS: Aspirin 81 MG CHEW 324 MG CH (00:48)
[2021-04-29 00:58] LABS: ALT 31 U/L (16-63); AST 33 U/L (15-37); Albumin 4.2 g/dL (3.4-5.0); Alkaline Phosphatase 39 U/L (46-116); Anion Gap 8.7 mmol/L (3-11); BUN 8 mg/dL (7-18); Bilirubin, Total 0.8 mg/dL (0.2-1.0); CO2 28.3 mmol/L (21.0-32.0); Calcium 9.1 mg/dL (8.5-10.1); Chloride 102 mmol/L (98-107); Glucose 125 mg/dL (74-106); Potassium 3.3 mmol/L (3.5-5.1); Sodium 139 mmol/L (136-145); Total Protein 7.3 g/dL (6.4-8.2); Troponin I < 0.05 ng/mL (<0.06)
--- NOTE | 2021-04-29 01:33 | DI.VRAD_ITS ---
PROCEDURE INFORMATION: Exam: XR Chest Exam date and time: 04/29/2021 12:20 AM Age: 30 years old Clinical indication: Other: Cp TECHNIQUE: Imaging protocol: XR of the chest. Views: 2 views. COMPARISON: CR PORTABLE CHEST ONE VIEW 08/01/2015 4:49 PM FINDINGS: Lungs: Unremarkable. No consolidation. Pleural spaces: Unremarkable. No pleural effusion. No pneumothorax. Heart/Mediastinum: Unremarkable. No cardiomegaly. Bones/joints: Unremarkable. IMPRESSION: No acute findings. Dictated and Authenticated by: Semaj Salmeron MD. Ordering:DARIEL Crump MD
--- NOTE | 2021-04-29 03:45 | RT.EKG_ITS ---
APPROVED REPORT Exam: Resting ECG Reason for Exam: chest pain Patient Location: E HR:80 bpm ECG Measurements Heart Rate 80 AXIS HI 126 P 51 QRSd 101 QRS -3 QT 381 T 74 QTc 439 Conclusion Sinus rhythm...normal P axis, V-rate 60- 99 Normal [place] There are no significant changes compared to prior EKG performed on 04/29/2021 at 00:05.
[2021-04-29 04:37] LABS: Troponin I < 0.05 ng/mL (<0.06)
== END 2021-04-29 04:42 | disposition home or self-care (01) ==
PROVIDERS: Emergency Provider Emergency Medicine; PCP Nurse Practitioner Family
DX: R07.9 Chest pain, unspecified (principal)
CPT/HCPCS: 36415; 80053; 93005; 99284; 71046; 83735; 84484; 85025; 93010

== ENCOUNTER 2022-08-10 19:52 | Emergency (ER) | payer MEDICAID, SELFPAY ==
[2022-08-10 19:59] VITALS: BP 129/83; PULSE 96; RESP 20; TEMP 36.9; O2SAT 98
--- NOTE | 2022-08-10 20:44 | W.ED.GENAD ---
Discharge Plan Disposition Patient Disposition: Home Discharge Details Clinical Impression: Pain, dental Primary Care Provider: Rosie Mcdonald ED Provider: Alissa Perez Home Meds and New Rx's Prescriptions: New clindamycin HCl 150 mg capsule 150 mg PO TID Qty: 90 0RF Discharge Instructions Instructions: Toothache (ED) Additional Instructions: Take the antibiotics as prescribed Antibiotic needs to be taken with yogurt Return earlier with fever, chills, increased swelling, or with any new or worsening complaints My recommendation would be to follow-up with an oral surgeon that is recommended by her insurance Referrals: Rosie Mcdonald, INPATIENT AUDITOR [Primary Care Provider] - Discharge Data Discharge Date/Time-TO BE ENTERED AT DEPARTURE: 08/10/22 21:38 Medical Decision Making Patient appears well, presenting with left upper dental pain No evidence of Padmini's angina Patient on clindamycin and given list for more urgent follow-up with dentist Precautions discussed and patient expressed understanding Medical Records Medical records reviewed: Yes I reviewed the patient's medical records. Lab Data Lab results reviewed: Yes I reviewed the patient's lab results. HPI General Date/Time Provider Initiated Documentation: 08/10/22 20:24. HPI Narrative: This 32-year-old male presents with left upper dental pain for the past several months. He states he just completed amoxicillin approximately a week ago. Does not have an appointment until the middle of August per patient. He states that his pain improved on the antibiotic and now has returned. He denies any fever or chills. He denies any difficulty swallowing. He denies any facial swelling, chest pain, or associated headache. He denies any known trauma. Related Data Home Medications Medication Instructions Recorded Confirmed clindamycin HCl 150 mg capsule 150 mg PO TID #90 caps 08/10/22 Previous Rx's Medication Instructions Recorded clindamycin HCl 150 mg capsule 150 mg PO TID #90 caps 08/10/22 Allergies Allergy/AdvReac Type Severity Reaction Status Date / Time No Known Allergies Allergy Verified 04/29/21 00:12 General Stated Complaint: DentalOral SERGE: 4 PFSH All Active Problems (Updated 08/10/22 @ 20:49 by COREY Caceres) Chest pain (Acute) Pain, dental (Acute) Acne vulgaris (Acute Unknown) Acute pain of right shoulder (Acute 10/07/15) Acute low back pain (Acute) Neck pain, chronic (Acute) Constipation (Chronic) Metamucil PRN Numbness and tingling of both feet (Chronic) 2018: [place] NCS Obesity (Chronic 09/02/13) BMI 38; best wt/10 yr = 180 Intermittent explosive disorder (Chronic 05/05/14) History of concussion (Chronic) Work injury Active Problem List Acne vulgaris (Acute Unknown) Acute pain of right shoulder (Acute 10/07/15) Acute low back pain (Acute) Neck pain, chronic (Acute) Constipation (Chronic) Numbness and tingling of both feet (Chronic) Obesity (Chronic 09/02/13) Intermittent explosive disorder (Chronic 05/05/14) History of concussion (Chronic) Medical History Anxiety (05/05/14) Depression (09/02/13) Gastroesophageal reflux disease (11/14/17) Dyspepsia; 07/27/2017 EGD (Dr. Vazquez): mild gastritis (bx's nml) History of squamous cell carcinoma of skin (04/09/17) Dr. Rodríguez Horseshoe kidney (06/23/16) Kidney stone Urol Dr Powell 2009 L ; Dr Asher; Dr Carrera 08/2014; recur 02/2016: 90% calciumOxalate monophosphate 10% Ca Phosphate (apatate) Surgical History EGD - MAC (07/27/17) Family History Mother Diabetes Father Neoplasm Prostate CA dx'ed 70 y/o Heart disease Social History Smoking/Tobacco Use Status: Former Tobacco Use Quit Date: 02/23/18 Smoking risk assessment performed?: Yes Alcohol Intake: current Alcohol Intake frequency: a few times a month Alcohol type: beer Drug use: Daily Substance use type: marijuana Details: smokes week a few times per week Caregiver/Support person: No Housing: apartment Communication Needs: None current occupation: [employer] Pets and animals: Yes Pets and animals: cat(s) Sexually active: Yes Current gender identity: male What type of physical activity do you participate in: regular exercise Frequency: daily Do you feel safe at home: Yes Do you feel safe in your relationship?: Yes Additional Social history: Binge drinks ETOH up to 24 beers daily approximately 2-3x per week Exam Const General: cooperative, comfortable and no acute distress [facility] Teeth image: 1. Fracture noted, no evidence of deep space infection, no trismus, no fluctuance, no purulent drainage Course Vital Signs Vital signs: Vital Signs Temperature 36.9 C 08/10/22 19:59 Pulse 96 H 08/10/22 19:59 Respiratory Rate 20 08/10/22 19:59 Blood Pressure 129/83 08/10/22 19:59 Pulse Oximetry 98 08/10/22 19:59 Temperature 36.9 C 08/10/22 19:59 Temperature Source Oral 08/10/22 19:59 Pulse 96 H 08/10/22 19:59 Respiratory Rate 20 08/10/22 19:59 Blood Pressure 129/83 08/10/22 19:59 Blood Pressure Position Sitting 08/10/22 19:59 Pulse Oximetry 98 08/10/22 19:59 Oxygen Delivery Method Room Air 08/10/22 19:59 Oxygen Flow Rate 0 08/10/22 19:59 Pain Level 10 08/10/22 19:59
[2022-08-10 20:55] VITALS: BP 126/86; PULSE 94; RESP 19; O2SAT 98
== END 2022-08-10 21:38 | disposition home or self-care (01) ==
PROVIDERS: Emergency Provider Physician Assistant; PCP Nurse Practitioner Family
DX: K03.81 Cracked tooth (principal)
CPT/HCPCS: 99283

== ENCOUNTER 2022-08-22 20:26 | Emergency (ER) | payer MEDICAID, SELFPAY ==
[2022-08-22 20:36] VITALS: BP 150/76; PULSE 80; RESP 16
[2022-08-22] MEDS: Bupivacaine 0.5% Pres-Free 30 ML VIAL IJ (21:11)
--- NOTE | 2022-08-22 21:31 | W.ED.GENAD ---
Discharge Plan Disposition Patient Disposition: Home Discharge Details Clinical Impression: Abscess, dental Primary Care Provider: Rosie Mcdonald ED Provider: Alissa Perez Home Meds and New Rx's Prescriptions: New clindamycin HCl 150 mg capsule 450 mg PO Q6H Qty: 90 0RF Saccharomyces boulardii [Florastor] 250 mg capsule 250 mg PO BID Qty: 20 0RF Discharge Instructions Instructions: Dental Abscess (ED) Additional Instructions: Take the antibiotics and Florastor Please follow-up with dentist Oral surgery referral Return earlier should you have new or worsening You should take 3 tablet clindamycin 150 mg 3 times daily for 10, do not take more than 10 days Referrals: Rosie Mcdonald, TABLET MACHINE OPERATOR [Primary Care Provider] - 1 day Discharge Data Discharge Date/Time-TO BE ENTERED AT DEPARTURE: 08/22/22 21:42 Medical Decision Making 32-year-old male presenting with worsening dental pain, not taking antibiotics appropriately, will take for 50 mg 3 times daily and placed on Florastor for probiotic Ibuprofen and Tylenol as needed for pain Encouraged to call his dentist tomorrow as they are placing referral to oral surgery No clinical evidence of Padmini's angina Return precautions discussed and patient expressed understanding Medical Records Medical records reviewed: Yes I reviewed the patient's medical records. Lab Data Lab results reviewed: Yes I reviewed the patient's lab results. HPI General Date/Time Provider Initiated Documentation: 08/22/22 20:27. HPI Narrative: This 32-year-old male presents with report of left upper dental pain. Taking clindamycin at home. States it feels more swollen today. Denies any fever or headache. Related Data Home Medications Medication Instructions Recorded Confirmed Saccharomyces boulardii 250 mg 250 mg PO BID #20 caps 08/22/22 capsule (Florastor) clindamycin HCl 150 mg capsule 450 mg PO Q6H #90 caps 08/22/22 Previous Rx's Medication Instructions Recorded Saccharomyces boulardii 250 mg 250 mg PO BID #20 caps 08/22/22 capsule (Florastor) clindamycin HCl 150 mg capsule 450 mg PO Q6H #90 caps 08/22/22 Allergies Allergy/AdvReac Type Severity Reaction Status Date / Time No Known Allergies Allergy Verified 04/29/21 00:12 General Stated Complaint: DentalOral SERGE: 4 PFSH All Active Problems (Updated 08/22/22 @ 21:36 by COREY Caceres) Chest pain (Acute) Pain, dental (Acute) Abscess, dental (Acute) Acne vulgaris (Acute Unknown) Acute pain of right shoulder (Acute 10/07/15) Acute low back pain (Acute) Neck pain, chronic (Acute) Constipation (Chronic) Metamucil PRN Numbness and tingling of both feet (Chronic) 2018: [place] NCS Obesity (Chronic 09/02/13) BMI 38; best wt/10 yr = 180 Intermittent explosive disorder (Chronic 05/05/14) History of concussion (Chronic) Work injury Active Problem List Acne vulgaris (Acute Unknown) Acute pain of right shoulder (Acute 10/07/15) Acute low back pain (Acute) Neck pain, chronic (Acute) Constipation (Chronic) Numbness and tingling of both feet (Chronic) Obesity (Chronic 09/02/13) Intermittent explosive disorder (Chronic 05/05/14) History of concussion (Chronic) Medical History Anxiety (05/05/14) Depression (09/02/13) Gastroesophageal reflux disease (11/14/17) Dyspepsia; 07/27/2017 EGD (Dr. Vazquez): mild gastritis (bx's nml) History of squamous cell carcinoma of skin (04/09/17) Dr. Rodríguez Horseshoe kidney (06/23/16) Kidney stone Urol Dr Powell 2009 L ; Dr Asher; Dr Carrera 08/2014; recur 02/2016: 90% calciumOxalate monophosphate 10% Ca Phosphate (apatate) Surgical History EGD - MAC (07/27/17) Family History Mother Diabetes Father Neoplasm Prostate CA dx'ed 70 y/o Heart disease Social History Smoking/Tobacco Use Status: Current every day Tobacco Type: cigarettes Smoking risk assessment performed?: Yes Alcohol Intake: current Alcohol Intake frequency: a few times a month Alcohol type: beer Drug use: Daily Substance use type: marijuana Details: smokes week a few times per week Caregiver/Support person: No Housing: apartment Communication Needs: None current occupation: [employer] Pets and animals: Yes Pets and animals: cat(s) Sexually active: Yes Current gender identity: male What type of physical activity do you participate in: regular exercise Frequency: daily Do you feel safe at home: Yes Do you feel safe in your relationship?: Yes Additional Social history: Binge drinks ETOH up to 24 beers daily approximately 2-3x per week Exam Narrative Exam Narrative: Patient with suspected abscess to #13, no evidence of Jameson's angina, fully alert and oriented, no evidence of significant deep space infection No trismus Not taking clindamycin appropriately, will increase to 450 mg 3 times daily and placed on Florastor out of concern for recurrent antibiotics Encouraged to call his dentist tomorrow as they are giving a referral to oral surgery Discharged home in stable condition with stable vitals, dental block performed for comfort, patient reports good effect Const General: cooperative, comfortable and no acute distress Course Vital Signs Vital signs: Vital Signs Pulse 80 08/22/22 20:36 Respiratory Rate 16 08/22/22 20:36 Blood Pressure 150/76 H 08/22/22 20:36 Temperature Source Oral 08/22/22 20:36 Pulse 80 08/22/22 20:36 Respiratory Rate 16 08/22/22 20:36 Respiratory Effort Normal, Non-Labored 08/22/22 20:42 Blood Pressure 150/76 H 08/22/22 20:36 Oxygen Delivery Method Room Air 08/22/22 20:36 Oxygen Flow Rate 0 08/22/22 20:36 Pain Level 8 08/22/22 20:36 Procedures Nerve Block Nerve Block 1: Time out performed: Yes Local Anesthetic: Bupivicaine 0.5% Amount of anesthesia used (mL): 1 Side: left Intraoral Nerve Block: supraperiosteal and superior alveolar Procedure Successful: Yes Patient Tolerated Procedure: well Complications: none
== END 2022-08-22 21:42 | disposition home or self-care (01) ==
LOC: ER 21:52
PROVIDERS: Emergency Provider Physician Assistant; PCP Nurse Practitioner Family
DX: K04.7 Periapical abscess without sinus (principal)
CPT/HCPCS: 64400; 99283

== ENCOUNTER 2023-04-23 07:32 | Emergency (ER) | payer MEDICAID, SELFPAY ==
[2023-04-23] VITALS (17 sets, daily range): BP systolic 131–143; BP diastolic 75–107; PULSE 65–85; RESP 18–27; TEMP 36.7; O2SAT 98–100
--- NOTE | 2023-04-23 07:49 | ED.GENADUL_ITS ---
Discharge Plan Disposition Patient Disposition: Home Condition: Improving Discharge Details Clinical Impression: Acute gastritis, Esophagitis Primary Care Provider: Unknown,Unknown ED Provider: Ross Patterson Meds and New Rx's Prescriptions: New pantoprazole [Protonix] [address] for susp in packet 40 mg PO DAILY Qty: 30 0RF Continued hydroxyzine pamoate 50 mg capsule 150 mg PO HS PRN (Reason: anxiety and insomnia) Qty: 270 0RF Discharge Instructions Instructions: Gastritis (ED), Diet for Stomach Ulcers and Gastritis (ED), GERD (Gastroesophageal Reflux Disease) (ED) Stand Alone Forms: Work Release Discharge Data Discharge Physician: Ross Patterson Medical Decision Making MDM: Summary: Patient presented with left upper quadrant pain He states that he has had also lots of reflux which he had endoscopy about 6 years ago but does not take any medication. Patient had lab works done which are unremarkable also had a CAT scan of the abdomen and pelvis that does not show any abnormalities of the nephrolithiasis. This likely patient has gastritis and esophagitis will be given pantoprazole and will follow his primary care physician for possible endoscopy. Data Review Analysis All the data on this patient was reviewed by me including laboratory and imaging studies as well as bedside studies performed by me Independent review of Studies Imaging CT scan abdomen pelvis do not show any abnormality Lab: Labs which include lipase LFTs CBC chemistry unremarkable Risk Stratification: Young patient with probably gastritis reflux esophagitis will be given pantoprazole Differential Diagnosis: 1. Acute gastritis 2. Esophagitis 3. GERD 4. Diverticulitis 5. Consultants: Shared disposition: Patient understands and will be given instructions and will follow-up with GI Impression: Imaging Data Radiologic Study: Attestation: I personally reviewed and interpreted this imaging study as follows: Imaging: CT Scan Radiologist's impression: Launch?Image Patient Name: Christiano Cavazos Unit #: [id number] Loc: ER Ordering Provider: Ross Patterson M.D. Status: REG ER Primary Care Provider: Unknown,Unknown Date of Exam: 04/23/23 Sex: M : 1990 Age: 32 Exam(s) a CT:CT abdomen & pelvis wo Exam(s) CT ABDOMEN PELVIS WO EXAM: CT ABDOMEN PELVIS WO CLINICAL HISTORY: LRFT FLANK PAIN. TECHNIQUE: Imaging Protocol: Axial computed tomography images with coronal and sagittal reformatted images were created and reviewed. COMPARISON: CT CT ABDOMEN PELVIS W from 03/08/2018 FINDINGS: ABDOMEN: Lung Bases: Normal where visualized. Liver: Normal density. No measurable mass. Gallbladder and biliary tract: The gallbladder is contracted. No biliary ductal dilatation. No obvious radiodense stones. Pancreas: Normal density, no abnormal calcifications or inflammatory process. Spleen: Normal. Kidneys: There is a horseshoe kidney again seen. There is stable mild prominence of the renal pelves bilaterally.Nephrolithiasis bilaterally. No masses seen. Adrenal glands: No mass is seen. Lymph nodes: Within normal limits. Abdominal Aorta: Abdominal portion non-dilated. PELVIS: Bladder:Symmetric distention, no gross wall thickening. Bowel: No obstruction or bowel wall thickening. No evidence of appendicitis. Peritoneal cavity: No ascites, collection or mesenteric inflammatory response. No free air. Reproductive organs: Unremarkable as visualized. Bones: Within normal limits. There is L3 spondylolysis and grade 1 spondylolisthesis of L3 on L4. Sclerotic areas are seen in the articular surfaces of the femoral heads bilaterally suspicious for avascular necrosis. There is no loss of volume of the femoral heads. Soft Tissues: Within normal limits. IMPRESSION: 1. Nephrolithiasis without evidence of obstructive uropathy. 2. No acute abdominal pelvic process. 3. 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 4. Findings were discussed with the emergency department at 8:52 a.m. on 04/23/2023. RADIATION DOSE DELIVERED: Total DLP DATA REPOSITORY: All CT scans at this facility are submitted to the National Radiology Data Registry (NRDR) Dose Index Registry (DIR) with the [employer] (ACR). RADIATION OPTIMIZATION: All CT scans at this facility use at least one of these dose optimization techniques: automated exposure control; mA and/or kV adjustment per patient size (includes targeted exams where dose is matched to clinical indication); or iterative reconstruction. 2055-0334: Total DLP = 0.00 mGy-cm Ordered By: Ross Patterson M.D. CC: HPI General Date/Time Provider Initiated Documentation: 04/23/23 07:49 . HPI Narrative: Patient presents emergency department complaining of left flank pain for the last 2 weeks that got exacerbated this morning. The pain is on the left flank but rates the left upper quadrant states that it gets exacerbated when he eats and this morning he had nausea and last night had episode of vomiting. Denies any fever denies any chills denies any hematuria reports pain that exacerbates when he moves Related Data Home Medications Medication Instructions Recorded Confirmed hydroxyzine pamoate 50 mg capsule 150 mg (3 x 50 mg) PO HS PRN 11/29/22 04/23/23 anxiety and insomnia #270 tab-caps pantoprazole 40 mg granules 40 mg PO DAILY #30 ea 04/23/23 delayed-release for susp in packet (Protonix) Previous Rx's Medication Instructions Recorded hydroxyzine pamoate 50 mg capsule 150 mg (3 x 50 mg) PO HS PRN 11/29/22 anxiety and insomnia #270 tab-caps pantoprazole 40 mg granules 40 mg PO DAILY #30 ea 04/23/23 delayed-release for susp in packet (Protonix) Allergies Allergy/AdvReac Type Severity Reaction Status Date / Time No Known Allergies Allergy Verified 04/23/23 07:41 General Stated Complaint: Abd Prob SERGE: 3 Review of Systems Narrative: Review of Systems: Constitutional: No fevers, chills, sweats Eye: No recent visual problems ENT: No ear pain, nasal congestion, sore throat Respiratory: No shortness of breath, cough Cardiovascular: No Chest pain, palpitations, syncope Gastrointestinal: No nausea, vomiting, diarrhea Genitourinary: No hematuria Schuyler/Lymph: Negative for bruising tendency, swollen lymph glands Endocrine: Negative for excessive thirst, excessive hunger Musculoskeletal: No back pain, neck pain, joint pain, muscle pain, decreased range of motion Integumentary: No rash, pruritus, abrasions Neurologic: Alert & oriented X 4 Psychiatric: No anxiety, depression PFSH All Active Problems (Updated 04/23/23 @ 09:14 by Ross Patterson MD) Esophagitis (Acute) Acute gastritis (Acute) Anxiety and depression (Chronic) Chest pain (Acute) Acne vulgaris (Acute Unknown) Acute pain of right shoulder (Acute 10/07/15) Acute low back pain (Acute) Neck pain, chronic (Acute) Constipation (Chronic) Metamucil PRN Numbness and tingling of both feet (Chronic) 2018: NL NCS Obesity (Chronic 09/02/13) BMI 38; best wt/10 yr = 180 Intermittent explosive disorder (Chronic 05/05/14) History of concussion (Chronic) Work injury Medical History Kidney stone Urol Dr Powell 2009 L hydro; Dr Asher; Dr Carrera 08/2014; recur 02/2016: 90% calciumOxalate monophosphate 10% Ca Phosphate (apatate) History of squamous cell carcinoma of skin (04/09/17) Dr. 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 Vazquez): mild gastritis (bx's nml) Depression (09/02/13) Anxiety (05/05/14) Surgical History EGD - MAC (07/27/17) Family History Mother Diabetes Father Neoplasm Prostate CA dx'ed 70 y/o Heart disease Social History Smoking/Tobacco Use Status: Current every day Tobacco Type: cigarettes Smoking risk assessment performed?: Yes Alcohol Intake: current Alcohol Intake frequency: a few times a month Alcohol type: beer Drug use: Daily Substance use type: marijuana Details: smokes week a few times per week Caregiver/Support person: No Housing: apartment Communication Needs: None current occupation: [employer] Pets and animals: Yes Pets and animals: cat(s) Sexually active: Yes Current gender identity: male What type of physical activity do you participate in: regular exercise Frequency: daily Do you feel safe at home: Yes Do you feel safe in your relationship?: Yes Additional Social history: Binge drinks ETOH up to 24 beers daily approximately 2-3x per week Exam Narrative Exam Narrative: Exam; vitals signs as reported above normal Constitutional; In no acute distress, afebrile General: cooperative, healthy appearing, comfortable and no acute distress HEENT: Head: normal to inspection, no palpable skull fracture and normocephalic atraumatic Eyes: : appearance normal, both eyes and all related structures EOM intact bilaterally Pupils: PERRL : conjunctiva normal Direct ophthalmoscopy: normal light reflex, normal conjunctiva, normal visual acuity Ears: Normal TM, normal external canal Nose: normal no rhinorreha Neck no JVD, supple non tender Neck: normal visual inspection, full ROM and no lymphadenopathy Chest: normal inspection of the chest Respiratory : normal respiratory effort and able to speak in complete sentences no wheezing no rales Cardio Rate: regular rate, rhythm: regular rhythm normal heart sounds S1 and S2 no murmurs, gallops, or rubs GI : normal to inspection, normal bowel sounds, soft, non tender, non distended, no organomegaly Back/Spine/ no CVA tenderness Thoracic/Lumbar Spine: no tenderness or deformities Skin no rashes or lesions Neuro: patient alert oriented x 4 and no meningeal signs, Cranial Nerves: CN's II-XI intact bilaterally, Cognition: normal cognition, Speech: speech normal, Gait: normal gait, Depp tendon reflexes normal 2+ muscle strength 5/5 bilaterally Extremities, no edema, full range of motion, normal strength Course Vital Signs Vital signs: Vital Signs Temperature 36.7 C 04/23/23 07:35 Pulse 81 04/23/23 07:35 Respiratory Rate 18 04/23/23 07:35 Blood Pressure 134/88 04/23/23 07:35 Pulse Oximetry 99 04/23/23 07:35 Temperature 36.7 C 04/23/23 07:35 Temperature Source Oral 04/23/23 07:35 Pulse 81 04/23/23 07:35 Respiratory Rate 18 04/23/23 07:35 Blood Pressure 134/88 04/23/23 07:35 Blood Pressure Position Sitting 04/23/23 07:35 Pulse Oximetry 99 04/23/23 07:35 Oxygen Delivery Method Room Air 04/23/23 07:35 Oxygen Flow Rate 0 04/23/23 07:35 Vital Signs and Lab Results Vital Signs Most Recent Vital Signs in EMR: Most Recent Vital Signs Temp Pulse Resp BP Pulse Ox 36.7 C 71 26 H 143/101 H 99 04/23/23 07:35 04/23/23 08:31 04/23/23 08:32 04/23/23 08:31 04/23/23 08:32 Lab Results 04/23/23 08:06 04/23/23 08:06 Blood Type / Crossmatch: 2 No Data to Display Complete Blood Count: 2 White Blood Count 8.35 10^3/uL (4.4-10.8) 04/23/23 08:06 Red Blood Count 4.79 10^6/uL (4.36-5.78) 04/23/23 08:06 Hemoglobin 15.4 g/dL (13.5-17.5) 04/23/23 08:06 Hematocrit 43.7 % (40.0-50.0) 04/23/23 08:06 Platelet Count 196 10^3/uL (130-400) 04/23/23 08:06 Complete Metabolic Panel: 2 Sodium 139 mmol/L (136-145) 04/23/23 08:06 Potassium 3.8 mmol/L (3.5-5.1) 04/23/23 08:06 Chloride 104 mmol/L (98-107) 04/23/23 08:06 Carbon Dioxide 25.9 mmol/L (21.0-32.0) 04/23/23 08:06 BUN 22 mg/dL (7-18) H 04/23/23 08:06 Creatinine 1.1 mg/dL (0.70-1.30) 04/23/23 08:06 Est GFR (CKD-EPI 2020) 92.04 (mL/min/1.73m2) 04/23/23 08:06 Magnesium 1.9 mg/dL (1.8-2.4) 04/23/23 08:06 Calcium 8.9 mg/dL (8.5-10.1) 04/23/23 08:06 Albumin 3.8 g/dL (3.4-5.0) 04/23/23 08:06 Glucose 129 mg/dL (74-106) H 04/23/23 08:06 Liver Function Panel: 2 Alanine Aminotransferase (ALT/SGPT) 26 U/L (16-63) 04/23/23 08: 06 Aspartate Amino Transf (AST/SGOT) 17 U/L (15-37) 04/23/23 08:06 Coagulation Panel: 2 No Data to Display Cardiac Panel: 2 No Data to Display Arterial Blood Gas: 2 No Data to Display Venous Blood Gas: 2 No Data to Display Pancreas Panel: 2 Lipase 35 U/L (16-77) 04/23/23 08:06 Thyroid Panel: 2 No Data to Display Infectious Disease: 2 No Data to Display Blood Cultures: 2 No Data to Display Toxicology Panel: 2 No Data to Display
--- NOTE | 2023-04-23 08:23 | DI.CT_ITS ---
Exam(s) CT ABDOMEN PELVIS WO EXAM: CT ABDOMEN PELVIS WO CLINICAL HISTORY: LRFT FLANK PAIN. TECHNIQUE: Imaging Protocol: Axial computed tomography images with coronal and sagittal reformatted images were created and reviewed. COMPARISON: CT CT ABDOMEN PELVIS W from 03/08/2018 FINDINGS: ABDOMEN: Lung Bases: Normal where visualized. Liver: Normal density. No measurable mass. Gallbladder and biliary tract: The gallbladder is contracted. No biliary ductal dilatation. No obvi ous radiodense stones. Pancreas: Normal density, no abnormal calcifications or inflammatory process. Spleen: Normal. Kidneys: There is a horseshoe kidney again seen. There is stable mild prominence of the renal pelves bilaterally.Nephrolithiasis bilaterally. No masses seen. Adrenal glands: No mass is seen. Lymph nodes: Within normal limits. Abdominal Aorta: Abdominal portion non-dilated. PELVIS: Bladder:Symmetric distention, no gross wall thickening. Bowel: No obstruction or bowel wall thickening. No evidence of appendicitis. Peritoneal cavity: No ascites, collection or mesenteric inflammatory response. No free air. Reproductive organs: Unremarkable as visualized. Bones: Within normal limits. There is L3 spondylolysis and grade 1 spondylolisthesis of L3 on L4. Sc lerotic areas are seen in the articular surfaces of the femoral heads bilaterally suspicious for avas cular necrosis. There is no loss of volume of the femoral heads. Soft Tissues: Within normal limits. IMPRESSION: 1. Nephrolithiasis without evidence of obstructive uropathy. 2. No acute abdominal pelvic process. 3. 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 4. Findings were discussed with the emergency department at 8:52 a.m. on 04/23/2023. RADIATION DOSE DELIVERED: Total DLP DATA REPOSITORY: All CT scans at this facility are submitted to the National Radiology Data Registry (NRDR) Dose Index Registry (DIR) with the [employer] (ACR). RADIATION OPTIMIZATION: All CT scans at this facility use at least one of these dose optimization te chniques: automated exposure control; mA and/or kV adjustment per patient size (includes targeted exa ms where dose is matched to clinical indication); or iterative reconstruction.
[2023-04-23 08:25] LABS: Abs Immature Grans 0.02 10^3/uL (0.0-0.06); Absolute Basophil Count 0.04 10^3/uL (0.0-0.2); Absolute Eosinophil Count 0.56 10^3/uL (0.0-0.7); Absolute Lymphocyte Count 3.18 10^3/uL (1.2-3.4); Absolute Monocyte Count 0.52 10^3/uL (0.1-0.8); Absolute Neutrophil Count 4.03 10^3/uL (1.2-6.7); Basophils % 0.5; Eosinophils % 6.7; HCT 43.7 % (40.0-50.0); HGB 15.4 g/dL (13.5-17.5); Immature Grans % 0.2; Lymphocytes % 38.1; MCH 32.2 pg (27.0-33.0); MCHC 35.2 % (32.0-36.0); MCV 91 fL (80-95); MPV 8.9 fL (8.0-11.0); Monocytes % 6.2; Neutrophils % 48.3; Platelet Count 196 10^3/uL (130-400); RBC 4.79 10^6/uL (4.36-5.78); RDW 11.7 % (11.8-14.1); RDW-SD 39.3 fL; WBC 8.35 10^3/uL (4.4-10.8)
[2023-04-23] MEDS: Normal Saline 1,000 ML 1000 ML IV (08:29)
[2023-04-23 08:46] LABS: Bilirubin Negative (Negative); Blood Negative (Negative); Clarity Clear (Clear); Glucose Negative (Negative); Ketones Negative (Negative); Leukocyte Esterase Negative (Negative); Nitrite Negative (Negative); Specific Gravity >= 1.030 (1.005-1.025); Urobilinogen 0.2 mg/dL (Up to 0.2); pH 5.5 (5-8)
[2023-04-23 08:53] LABS: ALT 26 U/L (16-63); AST 17 U/L (15-37); Albumin 3.8 g/dL (3.4-5.0); Alkaline Phosphatase 51 U/L (46-116); Anion Gap 9.1 mmol/L (3-11); BUN 22 mg/dL (7-18); Bilirubin, Total 0.4 mg/dL (0.2-1.0); CO2 25.9 mmol/L (21.0-32.0); CREATININE 1.1 mg/dL (0.70-1.30); Calcium 8.9 mg/dL (8.5-10.1); Chloride 104 mmol/L (98-107); Estimated GFR 92.04 (mL/min/1.73m2); Glucose 129 mg/dL (74-106); Lipase 35 U/L (16-77); Magnesium 1.9 mg/dL (1.8-2.4); Potassium 3.8 mmol/L (3.5-5.1); Sodium 139 mmol/L (136-145); Total Protein 7.2 g/dL (6.4-8.2)
== END 2023-04-23 09:33 | disposition home or self-care (01) ==
PROVIDERS: Emergency Provider Emergency Medicine Emergency Medical Services
DX: R10.9 Unspecified abdominal pain (principal); K29.00 Acute gastritis without bleeding; K20.90 Esophagitis, unspecified without bleeding; N20.0 Calculus of kidney; R93.7 Abnormal findings on diagnostic imaging of other parts of musculoskeletal system; M47.816 Spondylosis without myelopathy or radiculopathy, lumbar region; Z79.899 Other long term (current) drug therapy; Q63.1 Lobulated, fused and horseshoe kidney
CPT/HCPCS: 80053; 83690; 96360; 99284; 74176; 81003; 83735; 85025

== ENCOUNTER → 2023-06-05 02:08 | Outpatient (CLI) | payer MEDICAID, SELFPAY ==
--- NOTE | 2023-06-05 07:11 | DI.MRI_ITS ---
Exam(s) MR LOWER JOINT BI WO EXAM: MR LOWER JOINT BI WO CLINICAL HISTORY: ? BILAT hip AVN on CT,R93.89,ABNL CT,BILAT PAIN TECHNIQUE: Multiplanar multisequence MRI of the hip was performed. COMPARISON: No exams were available for comparison FINDINGS: MARROW: No evidence of stress fracture the hips. However, there are symmetrical cyst areas of signal abnorma lity in the upper aspect of both femoral heads consistent with avascular necrosis, relatively symmetr ical and without femoral head volume loss. EFFUSION: Small amount of increased joint fluid in the hips, slightly more so on the right side. No loose intra-articular body seen. BURSAE: There is no evidence of trochanteric bursitis. There is no evidence of iliopsoas bursitis. HIP JOINT SPACE: No obvious chondral defects.There is no hypertrophy of the ligamentum teres nor sign al abnormality at the fovea centralis. LABRUM: There is no evidence of obvious labral tear nor evidence of paralabral cyst. TENDONS: No evidence of tendinitis nor tendon tears. ISCHIAL TUBEROSITY/HAMSTRING: There is no abnormal intraosseous signal in the ipsilateral ischial tub erosity nor tear of the common hamstrings tendon attachment site at this level. OTHER: There is no abnormal intramuscular signal within the quadratus femoris to suggest the presence of impingement syndrome at this level. IMPRESSION: 1. 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 No volume loss of the femoral heads. Small joint effusions, right slightly larger than left. DATA REPOSITORY:
== END ==
PROVIDERS: PCP Nurse Practitioner Family; Visit Provider Nurse Practitioner
DX: M87.051 Idiopathic aseptic necrosis of right femur (principal); M87.052 Idiopathic aseptic necrosis of left femur
CPT/HCPCS: 73721

== ENCOUNTER 2023-06-14 04:49 | Outpatient (CLI) | payer MEDICAID, SELFPAY ==
[2023-06-18 13:50] LABS: ANA Interpretation Positive (Negative); ANA Titer Pattern 1:160 Speckled
== END 2023-06-14 04:50 | disposition home or self-care (01) ==
LOC: LBO 04:49
PROVIDERS: Absent Provider Nurse Practitioner; PCP Nurse Practitioner Family; Visit Provider Nurse Practitioner
DX: M87.051 Idiopathic aseptic necrosis of right femur (principal); M87.052 Idiopathic aseptic necrosis of left femur
CPT/HCPCS: 36415; 86038

== ENCOUNTER 2024-05-16 14:59 | Emergency (ER) | payer MEDICAID, SELFPAY ==
[2024-05-16 15:00] VITALS: BP 145/90; PULSE 82; RESP 14; TEMP 36.7; O2SAT 98
--- NOTE | 2024-05-16 15:00 | DI.RAD_ITS ---
Exam(s) XR HAND LT COMPLETE EXAM: XR HAND LT COMPLETE CLINICAL HISTORY: chainsaw vs index finger. TECHNIQUE: 2D digital imaging was performed. COMPARISON: CR XR THUMB LT from 03/05/2019 FINDINGS: 3 views There is bandage material around the 2nd-index finger proximal phalanx. There is no evidence of frac ture or dislocation nor radiopaque foreign body at this level nor elsewhere in the hand. There is no gas in the soft tissues. IMPRESSION: No acute osseous findings in the left hand. DATA REPOSITORY: RADIATION DOSE DELIVERED:
[2024-05-16] MEDS: Lidocaine 1% Pres-Free 5 ML VIAL (15:23)
--- NOTE | 2024-05-16 15:29 | W.ED.GENAD ---
Discharge Plan Disposition Patient Disposition: Home Condition: Stable Discharge Details Clinical Impression: Finger laceration Primary Care Provider: Rosie Mcdonald ED Provider: Meet Raya Home Meds and New Rx's Prescriptions: Continued ibuprofen 600 mg tablet 600 mg PO Q6H PRN (Reason: pain) Qty: 30 0RF hydroxyzine pamoate 50 mg capsule 150 mg PO HS PRN (Reason: anxiety and insomnia) Qty: 270 0RF gabapentin 300 mg capsule 300 mg PO TID Qty: 90 2RF pantoprazole 40 mg tablet,delayed release (DR/EC) 40 mg PO DAILY Qty: 90 0RF Discharge Instructions Instructions: Laceration Repair With Stitches ED Additional Instructions: Laceration repaired without difficulty. X-ray was negative. Please keep the initial dressing on for the next 48 hours then you may change daily. Rest, elevate, [id number] Tylenol and/or Motrin as directed. Cool compresses every 2 hours for 20 minutes. Please watch for new or worsening symptoms and return to the ER for any concerns. Lastly, return here, go to your PCP or urgent care in about 7-10 days for suture removal. HPI General Mode of arrival: ambulatory. Date/Time Provider Initiated Documentation: 05/16/24 15:03. Limitations to Documentation: no limitations. Information obtained by: patient. History of Present Illness 33 year old M presents to the emergency department with the chief complaint of finger lac, described as moderate, with intensity rated at 6. Quality is described as aching, and is localized to the left and upper extremity. Patient reports no radiation. Patient started experiencing this minute(s) (30) and it has been constant. No relieving factors improve symptom(s), Movement worsens symptoms . Patient notes no other symptoms.. Patient did receive the following treatments prior to arrival, none Related Data Home Medications ?Medication ?Instructions ?Recorded ?Confirmed hydroxyzine pamoate 50 mg capsule 150 mg (3 x 50 mg) PO HS PRN 07/13/23 05/16/24 anxiety and insomnia #270 tab-caps ibuprofen 600 mg tablet 600 mg PO Q6H PRN pain #30 tabs 07/13/23 05/16/24 gabapentin 300 mg capsule 300 mg PO TID #90 caps 09/05/23 05/16/24 pantoprazole 40 mg tablet,delayed 40 mg PO DAILY #90 tabs 09/05/23 05/16/24 release Previous Rx's ?Medication ?Instructions ?Recorded hydroxyzine pamoate 50 mg capsule 150 mg (3 x 50 mg) PO HS PRN 07/13/23 anxiety and insomnia #270 tab-caps ibuprofen 600 mg tablet 600 mg PO Q6H PRN pain #30 tabs 07/13/23 gabapentin 300 mg capsule 300 mg PO TID #90 caps 09/05/23 pantoprazole 40 mg tablet,delayed 40 mg PO DAILY #90 tabs 09/05/23 release Allergies Allergy/AdvReac Type Severity Reaction Status Date / Time No Known Allergies Allergy Verified 05/16/24 15:03 General Stated Complaint: Laceration SERGE: 4 Review of Systems Constitutional Constitutional: Denies fever(s) and Denies weakness Musculoskeletal Musculoskeletal: Denies numbness and Denies tingling Integumentary/Breasts Skin/Breast: Denies rash Neurologic Neurologic: Denies numbness, Denies tingling and Denies weakness Exam Const General: cooperative, healthy appearing, comfortable and no acute distress Orientation: alert and awake [facility] Head: normal to inspection, normocephalic and atraumatic Mouth: moist mucous membranes Eyes Conjunctivae: conjunctivae normal Neck Neck: normal visual inspection, trachea midline and supple Resp Effort & Inspection: normal respiratory effort and able to speak in complete sentences Cardio Rate: regular rate Rhythm: regular rhythm Skin General skin exam: no rashes or lesions noted Neuro General: patient alert, patient awake, moves all extremities and no focal motor deficits Sensory Exam: no sensory deficits noted Extrem Hand/finger images: 1. Irregular 1.5 cm laceration. Diffuse discomfort to palpation. Slight bloody ooze. Demonstrates full flexion and extension. No weakness. Sensation intact throughout. Neuro, vascular, tendon intact. Normal capillary refill. Psych Appearance: grossly normal Mental Status: mental status grossly normal Course Vital Signs Vital signs: Vital Signs Temperature 36.7 C 05/16/24 15:00 Pulse 82 05/16/24 15:00 Respiratory Rate 14 05/16/24 15:00 Blood Pressure 145/90 H 05/16/24 15:00 Pulse Oximetry 98 05/16/24 15:00 Temperature 36.7 C 05/16/24 15:00 Temperature Source Oral 05/16/24 15:00 Pulse 82 05/16/24 15:00 Respiratory Rate 14 05/16/24 15:00 Blood Pressure 145/90 H 05/16/24 15:00 Blood Pressure Position Sitting 05/16/24 15:00 Pulse Oximetry 98 05/16/24 15:00 Oxygen Delivery Method Room Air 05/16/24 15:00 Oxygen Flow Rate 0 05/16/24 15:00 Pain Level 6 05/16/24 15:00 Procedures Laceration Laceration 1: Site: hand Side (If applicable): left Size (cm): 1.5 Description: irregular and clean Depth: simple, single layer Local anesthetic: Lidocaine 1% Amount of anesthesia used (mL): 4 Pre-repair: wound explored, irrigated extensively and deep structures intact Skin layer closed with: nylon Size (cm): 4-0 Number of sutures: 3 Medical Decision Making 33-year-old [id number] male, tetanus status up-to-date, presents for left index finger laceration he sustained just prior to arrival on a chainsaw. Bleeding controlled. Neuro, vascular, tendon intact. Will obtain x-ray to rule out any foreign body or bony involvement. Left hand x-ray ordered and reviewed, also reviewed by radiology, no acute findings. Discussed in length with patient. Digital block performed, laceration repaired without complication, bulky tube dressing applied. Standard post suture instructions were provided. Will return in about 10 days for suture removal. Standard discharge and return precautions were provided. Patient understands, is agreeable to this plan, and has no additional questions or concerns upon discharge. This documentation was generated using [employer] dictation system, please disregard any oddities of phrase or misspellings. Medical Records Medical records reviewed: Yes I reviewed the patient's medical records. Quality:SDOH Health Related Social Needs: No Data to Display PFSH All Active Problems (Updated 05/16/24 @ 15:54 by COREY Galvez) Finger laceration (Acute) Left tennis elbow (Acute) Avascular necrosis of bones of both hips (Acute) Anxiety and depression (Chronic) Chest pain (Acute) Acne vulgaris (Acute Unknown) Acute pain of right shoulder (Acute 10/07/15) Acute low back pain (Acute) Neck pain, chronic (Acute) Constipation (Chronic) Metamucil PRN Numbness and tingling of both feet (Chronic) 2018: NL NCS Obesity (Chronic 09/02/13) BMI 38; best wt/10 yr = 180 Intermittent explosive disorder (Chronic 05/05/14) History of concussion (Chronic) Work injury Medical History Kidney stone Urol Dr Powell 2009 L hydro; Dr Asher; Dr Carrera 08/2014; recur 02/2016: 90% calciumOxalate monophosphate 10% Ca Phosphate (apatate) History of squamous cell carcinoma of skin (04/09/17) Dr. 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 Vazquez): mild gastritis (bx's nml) Depression (09/02/13) Anxiety (05/05/14) Surgical History EGD - MAC (07/27/17) Family History Mother Diabetes Father Neoplasm Prostate CA dx'ed 70 y/o Heart disease Social History Smoking/Tobacco Use Status: Current every day Tobacco Type: cigarettes Smoking risk assessment performed?: Yes Alcohol Intake: current Alcohol Intake frequency: a few times a month Alcohol type: beer Drug use: Daily Substance use type: marijuana Details: smokes week a few times per week Caregiver/Support person: No Housing: apartment Communication Needs: None current occupation: [employer] Pets and animals: Yes Pets and animals: cat(s) Sexually active: Yes Current gender identity: male What type of physical activity do you participate in: regular exercise Frequency: daily Do you feel safe at home: Yes Do you feel safe in your relationship?: Yes Additional Social history: Binge drinks ETOH up to 24 beers daily approximately 2-3x per week
== END 2024-05-16 16:05 | disposition home or self-care (01) ==
PROVIDERS: Emergency Provider Physician Assistant
DX: S61.211A Laceration without foreign body of left index finger without damage to nail, initial encounter; W29.3XXA Contact with powered garden and outdoor hand tools and machinery, initial encounter; F17.210 Nicotine dependence, cigarettes, uncomplicated
CPT/HCPCS: 12002; 99283; 73130; 99284; J2003

== ENCOUNTER 2024-08-05 11:43 | Emergency (ER) | payer MEDICAID, SELFPAY ==
[2024-08-05 11:55] VITALS: BP 136/77; PULSE 65; RESP 18; TEMP 36.6; O2SAT 97
[2024-08-05 11:59] VITALS: BP 136/77; PULSE 65; RESP 16; TEMP 36.4; O2SAT 97
--- NOTE | 2024-08-05 12:26 | W.ED.GENAD ---
Discharge Plan Disposition Patient Disposition: Home Condition: Stable Discharge Details Clinical Impression: Pain, dental Primary Care Provider: Unknown,Unknown ED Provider: Klesey Boogie Home Meds and New Rx's Prescriptions: New morphine 15 mg tablet 15 mg PO Q8H PRNQty: 5 0RF amoxicillin-pot clavulanate 875-125 mg tablet 1 tab PO Q12H 7 Days Qty: 14 0RF No Action gabapentin 300 mg capsule 600 mg PO QHS Qty: 90 2RF Discharge Instructions Instructions: Dental Pain (DC) Additional Instructions: You were seen in the emergency department today for evaluation of dental pain. In our department he had a full physical examination performed, and we provided you with a dose of Toradol, medication related to ibuprofen. You need to continue to use Tylenol and ibuprofen at home for the majority of your pain management, and I provided you with a prescription both for an antibiotic to be started as soon as possible, as well as some stronger pain medications that you can use as needed for breakthrough pain. It is important to avoid driving, operating machinery, or being at work while under the effect of these medications as they can cause drowsiness. You have a dentist appointment tomorrow, please keep that appointment as they need to do further imaging or workup to determine the cause of your symptoms. Please follow-up with your primary care provider in the next few days to discuss this visit and any symptoms that change, worsen, or persist. Thank you for allowing us to be part of your care. Stand Alone Forms: Work Release HPI General Mode of arrival: ambulatory. Date/Time Provider Initiated Documentation: 08/05/24 11:46. Limitations to Documentation: no limitations. Information obtained by: patient and old records reviewed. HPI Narrative: HPI: This is a 34-year-old male patient presenting for evaluation of tooth pain. The patient reports that 16 months ago, he had his right upper posterior molar removed, states that the root had grown up into his sinus region, and that he has had difficulties with this area since that time. He states that he has been treated numerous times for infections, most recently on amoxicillin in May 2024. States that 2 days ago he started to have significant pain, and today at work he was unable to tolerate it, prompting his presentation to care. The patient reports that his pain is located in the area of the extracted tooth, and radiates up into his cheek. He feels that this pain is exacerbated whenever he tries to blow his nose, spit, or when cold air touches his face. The patient states he has not had a fever, took 2 extra strength Tylenol this morning without improvement, and he has an appointment with a dental provider tomorrow, and is looking for assistance in getting through the rest of his work shift and to that appointment. The patient reports no visual changes, states that sometimes he has expression of clear to thick whitish fluid from that region, has been able to eat and drink typically. Exam: Gen: Awake and alert, in no apparent distress HEENT: Non-icteric sclera, PERRL, conjunctiva noninjected, EOMs are full without nystagmus or evidence of entrapment. The patient's left midface is without swelling, overlying skin changes, patient does have some tenderness to palpation over the right maxilla and maxillary sinus region. The patient has had the right upper back molar removed, no apical abscess appreciated, no purulent drainage noted. Neck: Supple, no significant lymphadenopathy Lungs: No apparent respiratory distress, normal respiratory effort. CV: Appears well perfused Abdomen: Non-distended MSK: Moves 4 extremities without apparent limitation in ROM Skin: Visualized skin without rashes, cyanosis. Neuro: Normal Gait, no obvious focal deficits or facial asymmetry. Speaks in full, clear sentences. Psych: Appropriate for situation. MDM: This is a 34-year-old male patient presenting for evaluation of dental pain. My differential includes but is not limited to dental carry disease, certainly considered bony abnormality in the setting of his dental extraction, I considered infection, though the patient reassuringly has no evidence of apical abscess, and his HEENT exam is less concerning for deep space abscess. He is hemodynamically appropriate, afebrile, and without tachycardia to suggest systemic infection such as bacteremia or sepsis. ED Course: I had an extended conversation with this patient regarding potential avenues of workup and management, and at this time the patient is desiring of management of his pain, for which I provided him with a dose of intramuscular Toradol. I recommended that he continue to maximize his outpatient Tylenol and ibuprofen, and sent a short course of oral morphine to his pharmacy for breakthrough pain. I will also initiate a course of antibiotics given his reported expression of pus, but I feel quite reassured by my physical examination against severe infection. At this time, the patient is not desiring of moving forward with any advanced imaging, given his scheduled dental appointment in less than 24 hours, and I do feel that this is a reasonable decision based on the history and physical. At this time, the patient has had a full medical evaluation and is safe for discharge to home. They are hemodynamically stable, ambulatory, and tolerating PO. They are understanding of the follow-up plan and return precautions. They left our facility without incident. Kelsey Boogie MD Related Data Home Medications ?Medication ?Instructions ?Recorded ?Confirmed gabapentin 300 mg capsule 600 mg (2 x 300 mg) PO QHS #90 caps 06/17/24 08/05/24 amoxicillin 875 mg-potassium 1 tab PO Q12H 7 days #14 tabs 08/05/24 clavulanate 125 mg tablet morphine 15 mg immediate release 15 mg PO Q8H PRN #5 tabs 08/05/24 tablet Previous Rx's ?Medication ?Instructions ?Recorded gabapentin 300 mg capsule 600 mg (2 x 300 mg) PO QHS #90 caps 06/17/24 amoxicillin 875 mg-potassium 1 tab PO Q12H 7 days #14 tabs 08/05/24 clavulanate 125 mg tablet morphine 15 mg immediate release 15 mg PO Q8H PRN #5 tabs 08/05/24 tablet Allergies Allergy/AdvReac Type Severity Reaction Status Date / Time No Known Allergies Allergy Verified 08/05/24 12:01 General Stated Complaint: DentalOral SERGE: 4 Course Vital Signs Vital signs: Vital Signs Temperature 36.6 C 08/05/24 11:55 Pulse 65 08/05/24 11:55 Respiratory Rate 18 08/05/24 11:55 Blood Pressure 136/77 08/05/24 11:55 Pulse Oximetry 97 08/05/24 11:55 Temperature 36.4 C 08/05/24 11:59 Temperature Source Oral 08/05/24 11:59 Pulse 65 08/05/24 11:59 Respiratory Rate 16 08/05/24 11:59 Blood Pressure 136/77 08/05/24 11:59 Blood Pressure Position Sitting 08/05/24 11:59 Pulse Oximetry 97 08/05/24 11:59 Oxygen Delivery Method Room Air 08/05/24 11:59 Oxygen Flow Rate 0 08/05/24 11:55 Pain Level 9 08/05/24 11:59 Medical Decision Making Quality:SDOH Health Related Social Needs: No Data to Display PFSH All Active Problems (Updated 08/05/24 @ 12:26 by Kelsey Boogie MD) Pain, dental (Acute) Right sided sciatica (Acute) Left tennis elbow (Acute) Avascular necrosis of bones of both hips (Acute) Anxiety and depression (Chronic) Chest pain (Acute) Acne vulgaris (Acute Unknown) Acute pain of right shoulder (Acute 10/07/15) Acute low back pain (Acute) Neck pain, chronic (Acute) Constipation (Chronic) Metamucil PRN Numbness and tingling of both feet (Chronic) 2018: NL NCS Obesity (Chronic 09/02/13) BMI 38; best wt/10 yr = 180 Intermittent explosive disorder (Chronic 05/05/14) History of concussion (Chronic) Work injury Medical History Kidney stone Urol Dr Powell 2009; Dr Asher; Dr Carrera 08/2014; recur 02/2016: 90% calciumOxalate monophosphate 10% Ca Phosphate (apatate) History of squamous cell carcinoma of skin (04/09/17) Dr. 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 Vazquez): mild gastritis (bx's nml) Depression (09/02/13) Anxiety (05/05/14) Surgical History EGD - MAC (07/27/17) Family History Mother Diabetes Father Neoplasm Prostate CA dx'ed 70 y/o Heart disease Social History Smoking/Tobacco Use Status: Current every day Tobacco Type: cigarettes Smoking risk assessment performed?: Yes Alcohol Intake: former Drug use: Daily Substance use type: marijuana Details: smokes week a few times per week Caregiver/Support person: No Housing: apartment Communication Needs: None current occupation: [employer] Pets and animals: Yes Pets and animals: cat(s) Sexually active: Yes Current gender identity: male What type of physical activity do you participate in: regular exercise Frequency: daily Do you feel safe at home: Yes Do you feel safe in your relationship?: Yes Additional Social history: Binge drinks ETOH up to 24 beers daily approximately 2-3x per week. state he stopped drinking a while ago he is unsure when
[2024-08-05] MEDS: Ketorolac 15 MG/ML VIAL IM (12:38)
== END 2024-08-05 12:50 | disposition home or self-care (01) ==
PROVIDERS: Emergency Provider Emergency Medicine
DX: K08.89 Other specified disorders of teeth and supporting structures (principal); F17.210 Nicotine dependence, cigarettes, uncomplicated
CPT/HCPCS: 96372; 99283; J1885

== ENCOUNTER 2024-11-21 11:32 | Outpatient (CLI) | payer SELFPAY ==
[2024-11-24 11:36] LABS: Lyme Ab w Rflx to Lyme Confirm Negative (Negative)
== END 2024-11-21 11:33 | disposition home or self-care (01) ==
LOC: LBO 11:32
PROVIDERS: PCP Nurse Practitioner; Visit Provider Emergency Medicine
DX: M25.50 Pain in unspecified joint (principal)
CPT/HCPCS: 36415; 86618

== ENCOUNTER 2024-12-12 15:38 | Outpatient (CLI) | payer SELFPAY ==
--- NOTE | 2024-12-12 11:00 | DI.RAD_ITS ---
Exam(s) XR FEMUR LT EXAM: XR FEMUR LT CLINICAL HISTORY: M79.652 Pain LT thigh, 1 wk hx unprovoked femur pain. TECHNIQUE: 2D digital imaging was performed. COMPARISON: No exams were available for comparison FINDINGS: Views-AP and lateral No evidence of hip nor femur fracture. No knee joint effusion. There is, however, subtle increased density in the upper femoral head. Cannot exclude possibility of avascular necrosis. There is no architectural loss of the head evident. There is no hip joint space narrowing. IMPRESSION: Possible subtle avascular necrosis in the femoral head. Recommend more dedicated imaging of the hip/MRI. DATA REPOSITORY: RADIATION DOSE DELIVERED:
== END 2024-12-12 15:58 ==
PROVIDERS: PCP Nurse Practitioner; Visit Provider Family Medicine
DX: M79.652 Pain in left thigh (principal)
CPT/HCPCS: 73552

== ENCOUNTER 2024-12-12 15:52 | Outpatient (CLI) | payer SELFPAY ==
[2024-12-12 11:41] LABS: Abs Immature Grans 0.02 10^3/uL (0.0-0.06); HCT 41.2 % (40.0-50.0); HGB 14.6 g/dL (13.5-17.5); Immature Grans % 0.3 %; MCH 32.3 pg (27.0-33.0); MCHC 35.4 % (32.0-36.0); MCV 91 fL (80-95); MPV 9.2 fL (8.0-11.0); Platelet Count 171 10^3/uL (130-400); RBC 4.52 10^6/uL (4.36-5.78); RDW 11.9 % (11.8-14.1); RDW-SD 39.8 fL; WBC 7.11 10^3/uL (4.4-10.8)
[2024-12-12 11:58] LABS: Hemoglobin A1C 5.1 % (<5.7)
[2024-12-12 12:13] LABS: ALT 49 U/L (16-63); AST 22 U/L (15-37); Albumin 3.7 g/dL (3.4-5.0); Alkaline Phosphatase 49 U/L (46-116); Anion Gap 8.0 mmol/L (3-11); BUN 16 mg/dL (7-18); Bilirubin, Total 0.3 mg/dL (0.2-1.0); CO2 26.0 mmol/L (21.0-32.0); Calcium 8.6 mg/dL (8.5-10.1); Calculated LDL 92 mg/dL (<100); Chloride 109 mmol/L (98-107); Cholesterol 153 mg/dL (<200); Estimated GFR 115.65 (mL/min/1.73m2); Glucose 122 mg/dL (74-106); HDL Cholesterol 47 mg/dL (>or=40); Potassium 4.4 mmol/L (3.5-5.1); Sodium 143 mmol/L (136-145); TSH 1.14 uIU/mL (0.36-3.74); Total Protein 6.8 g/dL (6.4-8.2); Triglyceride 70 mg/dL (<150)
[2024-12-15 11:06] LABS: Lyme Ab w Rflx to Lyme Confirm Negative (Negative)
[2024-12-15 20:18] LABS: B. miyamotoi PCR Negative (Negative); Babesia divergens/MO-1 Negative (Negative); Ehrlichia muris eauclairensis Negative (Negative)
== END 2024-12-12 15:53 | disposition home or self-care (01) ==
LOC: LBO 15:54
PROVIDERS: PCP Nurse Practitioner; Visit Provider Family Medicine
DX: Z13.9 Encounter for screening, unspecified (principal); S80.862A Insect bite (nonvenomous), left lower leg, initial encounter; W57.XXXA Bitten or stung by nonvenomous insect and other nonvenomous arthropods, initial encounter; D64.9 Anemia, unspecified; R53.83 Other fatigue
CPT/HCPCS: 36415; 80053; 80061; 87798; 83036; 84443; 85025; 86618

== ENCOUNTER 2025-01-05 03:25 | Outpatient (CLI) | payer SELFPAY ==
--- NOTE | 2025-01-05 07:15 | DI.MRI_ITS ---
Exam(s) MR LUMBAR SPINE WO EXAM: MR LUMBAR SPINE WO CLINICAL HISTORY: not resolving LUMBAGO WITH SCIATICA,LT SIDE,M54.42. TECHNIQUE: Multiplanar multisequence MRI of the Lumbar spine was performed. COMPARISON: CT CT ABDOMEN PELVIS WO from 04/23/2023 FINDINGS: Bones: The last intervertebral disc space is designated the L5/S1 level for the numbering purpose of this examination. The vertebral body heights are well maintained. Alignment: Unremarkable. Severe degenerative signal changes in the marrow at L3 and L4. Cord: The conus tip ends at the T12 level. It is of normal size and signal intensity. T12-L1: No focal disc herniation is present. No central spinal canal stenosis.No neural foraminal stenosis. L1-2: No focal disc herniation is present. No central spinal canal stenosis.No neural foraminal stenosis. L2-3: No focal disc herniation is present. No central spinal canal stenosis.No neural foraminal stenosis. L3-4: Severe loss of disc height diffuse disc bulging. Small endplate osteophytes. No focal disc herniation is present. Bilateral L3 spondylolysis. Stable slight retrolisthesis. No central spinal canal stenosis.Severe bilateral foraminal stenosis. L4-5:Moderate loss of disc height. Small endplate osteophytes. No focal disc herniation is present. No central spinal canal stenosis.No neural foraminal stenosis. L5-S1: No focal disc herniation is present. No central spinal canal stenosis.No neural foraminal stenosis. The visualized SI joints and sacrum are unremarkable. Soft tissues: The paraspinal soft tissues are unremarkable. Question of a horseshoe kidney. Multiple renal cysts are noted. IMPRESSION: Severe degenerative disc changes at L3-4. Severe bilateral neural foraminal narrowing. Moderate degenerative disc changes at L4-5 without significant oral foraminal narrowing or central canal stenosis. No focal disc herniation.. DATA REPOSITORY:
== END 2025-01-05 03:45 ==
LOC: DI 03:25
PROVIDERS: PCP Nurse Practitioner; Visit Provider Family Medicine
DX: M54.42 Lumbago with sciatica, left side (principal)
CPT/HCPCS: 72148

== ENCOUNTER 2025-01-29 02:54 | Emergency (ER) | payer SELFPAY ==
[2025-01-29] VITALS (11 sets, daily range): BP systolic 116–156; BP diastolic 65–98; PULSE 55–72; RESP 18; TEMP 37.1–37.2; O2SAT 93–99
[2025-01-29] MEDS: Ondansetron 4 MG/2 ML VIAL IVP (03:15)
[2025-01-29] MEDS: ACETAMINOPHEN 1,000 MG/100 ML BAG 400 MG IVPB (03:15)
[2025-01-29] MEDS: Ketorolac 15 MG/ML VIAL IVP (03:15)
[2025-01-29] MEDS: Tamsulosin 0.4 MG CAPCR PO (03:15)
[2025-01-29 03:17] LABS: Abs Immature Grans 0.03 10^3/uL (0.0-0.06); HCT 42.2 % (40.0-50.0); HGB 15.4 g/dL (13.5-17.5); Immature Grans % 0.2 %; MCH 32.4 pg (27.0-33.0); MCHC 36.5 % (32.0-36.0); MCV 89 fL (80-95); MPV 9.2 fL (8.0-11.0); Platelet Count 202 10^3/uL (130-400); RBC 4.76 10^6/uL (4.36-5.78); RDW 11.7 % (11.8-14.1); RDW-SD 37.5 fL; WBC 12.03 10^3/uL (4.4-10.8)
--- NOTE | 2025-01-29 03:17 | W.ED.GENAD ---
Discharge Plan Disposition Patient Disposition: Home Condition: Good Discharge Details Clinical Impression: Kidney stone on left side Primary Care Provider: Yesenia Jon ED Provider: Edwin West Home Meds and New Rx's Prescriptions: New ketorolac 10 mg tablet 10 mg PO TID 5 Days Qty: 15 0RF tamsulosin [Flomax] 0.4 mg capsule 0.4 mg PO DAILY Qty: 10 0RF No Action lorazepam 1 mg tablet 1 mg PO ONCE Qty: 1 0RF Rx Instructions: Take 1 hour prior to MRI Discharge Instructions Instructions: Kidney Stone, Adult ED Additional Instructions: At this time you have evidence of a small kidney stone. This is likely the cause of your symptoms. This should pass within the next 12 to 48 hours, if not earlier. Please drink plenty of fluids, 10 to 12 cups/day at least. Please add a small amount of lemon juice to every cup of water. Please take 10mg of Ketorolac every 8 hours and 1000 mg of Tylenol every 6 hours as needed for pain. These are the maximum doses of these medicines. Please take the Flomax as directed. This will help in expediting the passage of your kidney stone. If your pain stops, you can stop taking the Flomax. Please strain your urine to collect the stone. This can then be analyzed by your family doctor. If you do not have resolution of your symptoms after 48 to 72 hours please follow-up closely with your family doctor or return here for reassessment. If you notice any worsening of your symptoms, or any new symptoms such as inability to urinate, vomiting, diarrhea, fever, chills, shortness of breath, chest pain, numbness, weakness, or fainting , please return immediately to the emergency department for reevaluation. Please follow up with your primary care provider as soon as possible for reassessment and reevaluation. As always, it was a pleasure participating in your medical care today. Stand Alone Forms: Work Release Referrals: Yong Beckman MD [ [facility] STAFF PHYSICIAN, Urology] Yesenia Jon NP [Primary Care Provider, Medicine] [facility] General Date/Time Provider Initiated Documentation: 01/29/25 02:56. HPI Narrative: This is a 34-year-old male with a past medical history of kidney stones, back pain, who presents today for evaluation of left flank pain. Pain began yesterday afternoon in the left flank which felt very similar to previous kidney stones. Radiates towards left groin. Sharp and achy and oscillating in nature. He denies any urinary changes. No other complaints at this time. Related Data Home Medications ?Medication ?Instructions ?Recorded ?Confirmed lorazepam 1 mg tablet 1 mg PO ONCE anxiety #1 tab 01/05/25 ketorolac 10 mg tablet 10 mg PO TID 5 days #15 tabs 01/29/25 tamsulosin 0.4 mg capsule (Flomax) 0.4 mg PO DAILY #10 caps 01/29/25 Previous Rx's ?Medication ?Instructions ?Recorded lorazepam 1 mg tablet 1 mg PO ONCE anxiety #1 tab 01/05/25 ketorolac 10 mg tablet 10 mg PO TID 5 days #15 tabs 01/29/25 tamsulosin 0.4 mg capsule (Flomax) 0.4 mg PO DAILY #10 caps 01/29/25 Allergies Allergy/AdvReac Type Severity Reaction Status Date / Time No Known Allergies Allergy Verified 12/12/24 10:22 General Stated Complaint: Abd Prob SERGE: 3 Exam Narrative Exam Narrative: 1.Const: Well-nourished, Well-developed, appearing stated age 2.Eyes: PERRL, no conjunctival injection, and symmetrical lids. 3.ENT: Atraumatic external nose and ears. Moist MM. Neck: Symmetric, trachea midline, No thyromegaly. 4.CVS: +S1/S2, Peripheral pulses 2+ and equal in all extremities. Brisk capillary refill in all extremities. 5.RESP: Unlabored respiratory effort. Clear to auscultation bilaterally. No wheezes rales or rhonchi 6.GI: Soft, Nontender/Nondistended, No hepatosplenomegaly. No guarding or rebound. No pain in left lower or right lower quadrant. No flank or CVA tenderness. No evidence of hernia. 7.MSK: Normocephalic/Atraumatic, Extremities w/o deformity or ttp No cyanosis or clubbing, Normal movement of all extremities 8.Skin: Warm, Dry. No rashes or lesions. 9.Neuro: wild life photographer II-XII grossly intact. Sensation grossly intact, no focal neurologic deficits. 10.Psych: (AAO) x3. Appropriate mood and affect Course Vital Signs Vital signs: Vital Signs Temperature 37.1 C 01/29/25 02:59 Pulse 72 01/29/25 02:59 Respiratory Rate 18 01/29/25 02:59 Blood Pressure 148/72 H 01/29/25 02:59 Pulse Oximetry 99 01/29/25 02:59 Temperature 37.1 C 01/29/25 02:59 Pulse 72 01/29/25 02:59 Respiratory Rate 18 01/29/25 02:59 Blood Pressure 148/72 H 01/29/25 02:59 Blood Pressure Position Sitting 01/29/25 02:59 Pulse Oximetry 99 01/29/25 02:59 Oxygen Delivery Method Room Air 01/29/25 02:59 Oxygen Flow Rate 0 01/29/25 02:59 Pain Level 10 01/29/25 02:59 Medical Decision Making This is a 34-year-old male with a past medical history of kidney stones, back pain, who presents today for evaluation of left flank pain. Pain began yesterday afternoon in the left flank which felt very similar to previous kidney stones. Radiates towards left groin. Sharp and achy and oscillating in nature. He denies any urinary changes. No other complaints at this time. Physical exam demonstrates a well-appearing male. No evidence of acute distress. No focal abdominal tenderness on palpation. Differential includes urolithiasis, diverticulitis, less likely SBO or ileus. Will get CT imaging, treat the patient's pain rehydrate monitor closely and reassess. 5:[address] scan shows evidence of 5 mm kidney stone that is obstructing on the left. Patient remains afebrile, blood work stable. No bandemia. Electrolytes normal, good renal function, urinalysis shows blood but no evidence to suggest infection. Negative nitrates, negative leuk esterase. Patient's pain is well-controlled now with 2 mg of morphine, Toradol, Ofirmev and Flomax. Patient is stable for discharge but because of the size of the stone I do feel that he would benefit from outpatient urology follow-up. Will place the patient on the list with Dr. Beckman. Discussed red flags for which to return. Patient able to tolerate p.o. He is able to urinate well. I have extensively reviewed the treatment plan and discharge instructions with the patient. I have addressed all patient concerns at this time. The patient was made aware of what symptoms to monitor for that would warrant a return to the emergency department. Discussed the plan with the patient, they demonstrate verbal understanding and agreement with our assessment and plan at this time. The documentation in this chart was dictated using Kamin[employer] dictation software. Please excuse any dictation errors. FINDINGS: Liver: Normal. No mass. Gallbladder and biliary ducts: Normal. No calcified stones. No ductal dilation. Pancreas: Normal. No ductal dilation. Spleen: Normal. No splenomegaly. Adrenal glands: Normal. No mass. Kidneys and ureters: Horseshoe kidney. 5 mm obstructing calculus in the left proximal ureter. Severe left hydronephrosis with perinephric fat stranding Stomach and bowel: Unremarkable. No obstruction. No mucosal thickening. Appendix: No evidence of appendicitis. Intraperitoneal space: Unremarkable. No free air. No significant fluid collection. Vasculature: Unremarkable. No abdominal aortic aneurysm. Lymph nodes: Unremarkable. No enlarged lymph nodes. Urinary bladder: Unremarkable as visualized. Reproductive: Unremarkable as visualized. Bones/joints: Unremarkable. No acute fracture Soft tissues: Unremarkable. IMPRESSION: 5 mm obstructing calculus in the left proximal ureter. Severe left hydronephrosis with perinephric fat stranding. Congenital horseshoe kidney. Thank you for allowing us to participate in the care of your patient. Dictated and Authenticated by: Lauryn Tomlin DO 01/29/2025 5:31 AM Eastern Time ([place] & [place]) [facility] All Active Problems (Updated 01/29/25 @ 05:36 by Edwin West DO) Kidney stone on left side (Acute) Fatigue (Acute) Anemia (Chronic) Lumbago with sciatica, right side (Acute) Left thigh pain (Acute) Tick bite of left lower leg (Acute) Right sided sciatica (Acute) Left tennis elbow (Acute) Avascular necrosis of bones of both hips (Acute) Anxiety and depression (Chronic) Chest pain (Acute) Acne vulgaris (Acute Unknown) Acute pain of right shoulder (Acute 10/07/15) Acute low back pain (Acute) Neck pain, chronic (Acute) Constipation (Chronic) Metamucil PRN Numbness and tingling of both feet (Chronic) 2018: NL NCS Obesity (Chronic 09/02/13) BMI 38; best wt/10 yr = 180 Intermittent explosive disorder (Chronic 05/05/14) History of concussion (Chronic) Work injury Medical History (Updated 01/29/25 @ 05:36 by Edwin West DO) Lumbago with sciatica, left side Kidney stone Urol Dr Powell 2009 L hydro; Dr Asher; Dr Carrera 08/2014; recur 02/2016: 90% calciumOxalate monophosphate 10% Ca Phosphate (apatate) History of squamous cell carcinoma of skin (04/09/17) Dr. 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 Vazquez): mild gastritis (bx's nml) Depression (09/02/13) Anxiety (05/05/14) Surgical History EGD - MAC (07/27/17) Family History Mother Diabetes Father Neoplasm Prostate CA dx'ed 70 y/o Heart disease Social History Smoking/Tobacco Use Status: Current every day Tobacco Type: cigarettes Smoking risk assessment performed?: Yes Alcohol Intake: former Drug use: Daily Substance use type: marijuana Details: smokes week a few times per week Caregiver/Support person: No Housing: apartment Communication Needs: None current occupation: [employer] Pets and animals: Yes Pets and animals: cat(s) Sexually active: Yes Current gender identity: male What type of physical activity do you participate in: regular exercise Frequency: daily Do you feel safe at home: Yes Do you feel safe in your relationship?: Yes Additional Social history: Binge drinks ETOH up to 24 beers daily approximately 2-3x per week. state he stopped drinking a while ago he is unsure when
[2025-01-29 03:35] LABS: ALT 41 U/L (16-63); AST 20 U/L (15-37); Albumin 4.3 g/dL (3.4-5.0); Alkaline Phosphatase 53 U/L (46-116); Anion Gap 8.6 mmol/L (3-11); BUN 11 mg/dL (7-18); Bilirubin, Total 0.9 mg/dL (0.2-1.0); CO2 24.4 mmol/L (21.0-32.0); Calcium 9.2 mg/dL (8.5-10.1); Chloride 104 mmol/L (98-107); Estimated GFR 74.39 (mL/min/1.73m2); Glucose 121 mg/dL (74-106); Potassium 4.0 mmol/L (3.5-5.1); Sodium 137 mmol/L (136-145); Total Protein 7.7 g/dL (6.4-8.2)
--- NOTE | 2025-01-29 03:37 | DI.CT_ITS ---
Exam(s) CT ABDOMEN PELVIS WO EXAM: CT ABDOMEN PELVIS WO CLINICAL HISTORY: left flank pain. TECHNIQUE: Imaging Protocol: Axial computed tomography images with coronal and sagittal reformatted images were created and reviewed. Oral: yes / no COMPARISON: CT CT ABDOMEN PELVIS WO from 04/23/2023 FINDINGS: Lung Bases: No acute findings. Liver: Mild hepatic steatosis. No suspicious mass. Gallbladder and biliary tract: No radiodense calculus or biliary dilation. Pancreas: Normal density. No abnormal calcifications or inflammatory process. Spleen: Normal. Kidneys: Horseshoe kidney. 4 x 7 millimeter stone in the left proximal ureter causing severe hydronephrosis. There is some perinephric stranding. There are 2 small nonobstructing stones at the lower pole of the left kidney. There is are few tiny stones at the mid to lower pole of the right kidney. No suspicious masses seen. Adrenal glands: No masses seen. Lymph nodes: Within normal limits. Vasculature: Abdominal aorta non-dilated. Soft tissues: Unremarkable. Bladder: Nearly empty but unremarkable. No calculi. Bowel: No obstruction or bowel wall thickening. The appendix is normal. Normal quantity of stool. Peritoneal cavity: No ascites. No focal collection. No mesenteric inflammatory response. Reproductive organs: Unremarkable. Bones: L3 spondylolysis. Mild L3-4 spondylolisthesis. Severe degenerative disc changes are noted at these levels. There are moderate degenerative changes at L4-5. IMPRESSION: Horseshoe kidney. Severe left hydronephrosis secondary to a 4 x 7 millimeter stone in the proximal ureter. Additional small bilateral nonobstructing renal calculi. The preliminary [facility] report was reviewed. RADIATION DOSE DELIVERED: 877.77mGy.cm Total DLP DATA REPOSITORY: All CT scans at this facility are submitted to the National Radiology Data Registry (NRDR) Dose Index Registry (DIR) with the [employer] (ACR). RADIATION OPTIMIZATION: All CT scans at this facility use at least one of these dose optimization techniques: automated exposure control; mA and/or kV adjustment per patient size (includes targeted exams where dose is matched to clinical indication); or iterative reconstruction.
[2025-01-29] MEDS: Normal Saline 1,000 ML 1000 ML IV (03:45)
[2025-01-29 04:55] LABS: Glucose Negative (Negative)
[2025-01-29 05:00] LABS: C & S Indicated? No
[2025-01-29] MEDS: MORPHine 10 MG/ML VIAL 2 MG IVP (05:06)
--- NOTE | 2025-01-29 05:32 | DI.[facility]_ITS ---
PROCEDURE INFORMATION: Exam: CT Abdomen And Pelvis Without Contrast Exam date and time: 01/29/2025 3:31 AM Age: 34 years old Clinical indication: Abdominal pain; Left flank pain TECHNIQUE: Imaging protocol: Computed tomography of the abdomen and pelvis without contrast. Radiation optimization: All CT scans at this facility use at least one of these dose optimization techniques: automated exposure control; mA and/or kV adjustment per patient size (includes targeted exams where dose is matched to clinical indication); or iterative reconstruction. COMPARISON: CT ABDOMEN PELVIS WO 04/23/2023 8:21 AM FINDINGS: Liver: Normal. No mass. Gallbladder and biliary ducts: Normal. No calcified stones. No ductal dilation. Pancreas: Normal. No ductal dilation. Spleen: Normal. No splenomegaly. Adrenal glands: Normal. No mass. Kidneys and ureters: Horseshoe kidney. 5 mm obstructing calculus in the left proximal ureter. Severe left hydronephrosis with perinephric fat stranding Stomach and bowel: Unremarkable. No obstruction. No mucosal thickening. Appendix: No evidence of appendicitis. Intraperitoneal space: Unremarkable. No free air. No significant fluid collection. Vasculature: Unremarkable. No abdominal aortic aneurysm. Lymph nodes: Unremarkable. No enlarged lymph nodes. Urinary bladder: Unremarkable as visualized. Reproductive: Unremarkable as visualized. Bones/joints: Unremarkable. No acute fracture. Soft tissues: Unremarkable. IMPRESSION: 5 mm obstructing calculus in the left proximal ureter. Severe left hydronephrosis with perinephric fat stranding. Congenital horseshoe kidney. Dictated and Authenticated by: Lauryn Tomlin MD. Orderin Brett Pineda MD
[2025-01-29] MEDS: MORPHine IR 15 MG TAB, 4 TABS/BTL PO (07:53)
== END 2025-01-29 07:59 | disposition home or self-care (01) ==
LOC: ER 07:35
PROVIDERS: Emergency Provider Student in an Organized Health Care Education/Training Program; PCP Nurse Practitioner
DX: N20.0 Calculus of kidney (principal)
CPT/HCPCS: 80053; 96365; 96366; 96375; 99284; 74176; 81003; 81015; 85025; J0131; J1885; J2270; J2405

== ENCOUNTER 2025-02-09 11:25 | Day surgery (SDC) | payer SELFPAY ==
[2025-02-09] VITALS (9 sets, daily range): BP systolic 115–149; BP diastolic 71–93; PULSE 55–72; RESP 16–23; TEMP 36–37; O2SAT 98–100; BMI 35.4
[2025-02-09] MEDS: Lactated Ringers 1,000 ML 80 ML IV (12:11)
--- NOTE | 2025-02-09 12:28 | HPE_ITS ---
Date of service: 02/09/25 Time of Service: 13:41 Assessment and Plan Assessment and plan (1) Kidney stone on left side: Status: Acute Assessment and plan: He has not passed a stone, so we will plan to move ahead with cystoscopy, left retrograde pyelogram, left ureteroscopy and holmium laser lithotripsy of his stone. If I am not able to access his stone today, we will plan to place a ureteral stent and make a return trip to the operating room to address the stone at a later date. History of Present Illness History of Present Illness Chief Complaint: Left ureteral stone Narrative: This is a 34-year-old gentleman who has a history of horseshoe kidney and kidney stones. He has never required surgical treatment for his stones. He recently presented with renal colic and was found to have an obstructing stone in the left proximal ureter. He has had persistent symptoms with conservative management. He has no fever or chills. He does have persistent pain and nausea. He presents now for stone manipulation. Review of Systems Narrative: No fevers or chills No vision change or dysphasia No diabetes or thyroid dysfunction No shortness of breath, cough or hemoptysis No chest pain or palpitations No nausea, vomiting, hepatitis, ulcers, jaundice No seizures, strokes or peripheral neuropathy No bleeding disorders or anemia No gout PFSH All Active Problems Kidney stone on left side (Acute) Fatigue (Acute) Anemia (Chronic) Lumbago with sciatica, right side (Acute) Left thigh pain (Acute) Tick bite of left lower leg (Acute) Right sided sciatica (Acute) Left tennis elbow (Acute) Avascular necrosis of bones of both hips (Acute) Anxiety and depression (Chronic) Chest pain (Acute) Acute low back pain (Acute) Neck pain, chronic (Acute) Constipation (Chronic) Metamucil PRN Numbness and tingling of both feet (Chronic) 2018: NL NCS Obesity (Chronic 09/02/13) BMI 38; best wt/10 yr = 180 Intermittent explosive disorder (Chronic 05/05/14) History of concussion (Chronic) Work injury Acute pain of right shoulder (Acute 10/07/15) Acne vulgaris (Acute Unknown) Medical History Lumbago with sciatica, left side Kidney stone Urol Dr Powell 2009 L hydro; Dr Asher; Dr Carrera 08/2014; recur 02/2016: 90% calciumOxalate monophosphate 10% Ca Phosphate (apatate) History of squamous cell carcinoma of skin (04/09/17) Dr. 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 Vazquez): mild gastritis (bx's nml) Depression (09/02/13) Anxiety (05/05/14) Surgical History History of tooth extraction EGD - MAC (07/27/17) Family History Mother Diabetes Father Neoplasm Prostate CA dx'ed 70 y/o Heart disease Social History Smoking/Tobacco Use Status: Former Tobacco Use Quit Date: 03/29/24 Smoking risk assessment performed?: Yes Alcohol Intake: former Drug use: Daily Substance use type: marijuana Details: last use 02/08/25. Caregiver/Support person: No Housing: apartment Communication Needs: None current occupation: [employer] Pets and animals: Yes Pets and animals: cat(s) Sexually active: Yes Current gender identity: male What type of physical activity do you participate in: regular exercise Frequency: daily Do you feel safe at home: Yes Do you feel safe in your relationship?: Yes Meds Allergies and Home Medications Allergies Allergy/AdvReac Type Severity Reaction Status Date / Time No Known Allergies Allergy Verified 02/09/25 11:39 Home Medications ?Medication ?Instructions ?Recorded ?Confirmed ?Type tamsulosin 0.4 mg capsule (Flomax) 0.4 mg PO DAILY #10 caps 02/03/25 02/09/25 Rx Exam Const General: cooperative Neck Neck: supple Resp Effort & Inspection: normal respiratory effort Auscultation: clear to auscultation bilaterally Cardio Rate: regular rate Rhythm: regular rhythm GI Palpation: soft and no masses Neuro General: patient alert, patient awake and patient oriented x3 Results Last Vital Signs Temp 37.0 C 02/09/25 11:42 Pulse 67 02/09/25 11:42 Resp 18 02/09/25 11:42 BP 139/93 H 02/09/25 11:42 Pulse Ox 98 02/09/25 11:42 Time Spent Time spent with Patient: <40 minutes Time was spent: other
--- NOTE | 2025-02-09 13:03 | ANES.PREOP_ITS ---
General Info Date of Service Date Performed: 02/09/25 Height: 5 ft 9 in Weight: 108.862 kg Body Mass Index (BMI): 35.4 Surgical Procedure: Operation Date: 02/09/25 12:10 Proposed Procedure Side Surgeon p Cystoscopy/Laser/Retrograde/Ureteroscopy, possible stend Left Yong Beckman MD Meds Allergies and Home Medications Allergies Allergy/AdvReac Type Severity Reaction Status Date / Time No Known Allergies Allergy Verified 02/09/25 11:39 Home Medication ?Medication ?Instructions ?Recorded tamsulosin 0.4 mg capsule (Flomax) 0.4 mg PO DAILY #10 caps 02/03/25 Current Visit Medications: Current Medications Generic Name Dose Route Start Last Admin Trade Name Freq PRN Reason Stop Dose Admin Ringer's Solution 1,000 mls @ 80 mls/hr 02/09/25 06:00 02/09/25 12:11 IV 03/11/25 23:59 80 mls/hr INFUSION LUPE Administration Cefazolin Sodium/Dextrose 2 gm in 50 mls @ 100 mls/hr 02/09/25 06:00 Ancef Duplex IVPB 03/11/25 23:59 PREOP LUPE IV Miscellaneous Supplies 1 each 02/09/25 06:00 Iv Access IV 03/11/25 23:59 DIRECTED LUPE Sodium Chloride 0 ml 02/09/25 06:00 Normal Saline Flush 10 Ml Syr IV 03/11/25 23:59 PRN PRN Sodium Chloride 0 ml 02/09/25 06:00 Normal Saline 10 Ml Vial IJ 03/11/25 23:59 DIRECTED PRN Sterile Water 0 ml 02/09/25 06:00 Water,Injection,Sterile 10 Ml Vial IJ 03/11/25 23:59 DIRECTED PRN PFSH Active Problems Active Problems: Problem Status Onset Code Kidney stone on left side Acute N20.0 Fatigue Acute R53.83 Anemia Chronic D64.9 Lumbago with sciatica, right side Acute M54.41 Left thigh pain Acute M79.652 Tick bite of left lower leg Acute S80.862A, W57.XXXA Right sided sciatica Acute M54.31 Left tennis elbow Acute M77.12 Avascular necrosis of bones of both hips Acute M87.051, M87.052 Anxiety and depression Chronic F41.9, F32.A Chest pain Acute R07.9 Acute low back pain Acute M54.5 Neck pain, chronic Acute M54.2, G89.29 Constipation Chronic K59.00 Numbness and tingling of both feet Chronic R20.0, R20.2 Ureteropelvic junction (UPJ) obstruction, left Resolved 06/23/16 N13.5 Obesity Chronic 09/02/13 E66.9 Intermittent explosive disorder Chronic 05/05/14 F63.81 History of concussion Chronic Z87.820 Acute pain of right shoulder Acute 10/07/15 M25.511 Acne vulgaris Acute Unknown L70.0 Medical History Medical History Lumbago with sciatica, left side Kidney stone Urol Dr Powell 2009 L ; Dr Asher; Dr Carrera 08/2014; recur 02/2016: 90% calciumOxalate monophosphate 10% Ca Phosphate (apatate) History of squamous cell carcinoma of skin (04/09/17) Dr. 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 Vazquez): mild gastritis (bx's nml) Depression (09/02/13) Anxiety (05/05/14) Surgical History Surgical History History of tooth extraction EGD - MAC (07/27/17) Tobacco Smoking/Tobacco Use Status: Former Tobacco Use Passive smoking exposure: No Alcohol Alcohol Intake: former Substance Use Substance use: Daily Substance use type: marijuana Details: last use 02/08/25. Vital Signs and Lab Results Vital Signs Most Recent Vital Signs in EMR: Most Recent Vital Signs Temp Pulse Resp BP Pulse Ox 37.0 C 67 18 139/93 H 98 02/09/25 11:42 02/09/25 11:42 02/09/25 11:42 02/09/25 11:42 02/09/25 11:42 Lab Results Complete Blood Count: WBC, (4.4-10.8) 12.03 10^3/uL H 01/29/25, 03:05 RBC, (4.36-5.78) 4.76 10^6/uL 01/29/25, 03:05 Hgb, (13.5-17.5) 15.4 g/dL 01/29/25, 03:05 Hct, (40.0-50.0) 42.2 % 01/29/25, 03:05 Plt Count, (130-400) 202 10^3/uL 01/29/25, 03:05 Complete Metabolic Panel: Sodium, (136-145) 137 mmol/L 01/29/25, 03:05 Potassium, (3.5-5.1) 4.0 mmol/L 01/29/25, 03:05 Chloride, (98-107) 104 mmol/L 01/29/25, 03:05 Carbon Dioxide, (21.0-32.0) 24.4 mmol/L 01/29/25, 03 :05 BUN, (7-18) 11 mg/dL 01/29/25, 03:05 Creatinine, (0.70-1.30) 1.3 mg/dL 01/29/25, 03:05 Est GFR (CKD-EPI 2020), (mL/min/1.73m2) 74.39 01/29/25, 03:05 Calcium, (8.5-10.1) 9.2 mg/dL 01/29/25, 03:05 Albumin, (3.4-5.0) 4.3 g/dL 01/29/25, 03:05 Glucose, (74-106) 121 mg/dL H 01/29/25, 03:05 Liver Function Panel: ALT, (16-63) 41 U/L 01/29/25, 03:05 AST, (15-37) 20 U/L 01/29/25, 03:05 Anesthesia Assessment and Plan Anesthesia History Personal History: No History of Anesthesia Complications Family History: No Family History of Anesthesia Complications Exercise Tolerance Exercise Tolerance: Metabolic Equivalents>4 Cardiac & Pulmonary Exam Cardiac Exam: Normal S1/S2 Heart Sounds Pulmonary Exam: Clear Bilateral Breath Sounds Implantable Cardiac Device Does patient have a Pacemaker or an ICD?: No Airway Exam Known Difficult Airway: No Mallampati Class: 4 Mouth Opening: Narrow (< 3cm) Thyromental Distance: Less than 3 cm Facial Hair: Full Reese Neck Range of Motion: Full ROM Neck Circumference: Thick Teeth Condition: Normal Dentition ASA Classification ASA Score: ASA 2 Emergency Case?: No NPO Status NPO Status: NPO Clears >2 hours, Solids >8 hours Anesthesia Plan Resuscitation Status: Full Code Anesthesia Technique: General Anesthesia Airway Planned: Endotracheal Tube Monitors Used: Standard Monitors Preoperative Comments:: 34 yo for cysto due to stones. Sig PMHx: GERD (rare), anxiety/depression, neck pain, feet numbness (denies, states has sciatica). former smoker, daily cannabis. Previous anes: - EGD, prop, midaz, fent, natural airway, no issues.
--- NOTE | 2025-02-09 13:15 | DI.RAD_ITS ---
Exam(s) XR RETROGRADE IN OR EXAM: XR RETROGRADE IN OR CLINICAL HISTORY: left ureteral stone TECHNIQUE: 2D and realtime digital imaging was performed. CONTRAST MATERIAL: Refer to procedure report. COMPARISON: CT CT ABDOMEN PELVIS WO from 01/29/2025 FINDINGS: Fluoroscopy was provided for Dr. Beckman during the performance of a retrograde evaluation of the renal collecting system. Please refer to the procedure report for complete details. Ka,r=16 mGy IMPRESSION: RADIATION DOSE DELIVERED: 0.0 0.0 0
[2025-02-09] MEDS: ceFAZolin 2 GM/50 ML BAG IVPB (13:56)
[2025-02-09] MEDS: Lidocaine 2% Jelly 6 ML SYR (14:14)
[2025-02-09] MEDS: Omnipaque 300 MG/ML 50 ML BTL (14:47)
--- NOTE | 2025-02-09 14:58 | W.PM.DSUDISC ---
Date of service: 02/09/25 Discharge Plan Disposition Patient Disposition: Home Condition: Stable Discharge Details Reason For Visit: left ureteral stone Attending Provider: Yong Beckman Primary Care Provider: Terrence Gonzales Home Meds and New Rx's Prescriptions: New oxycodone 5 mg tablet 5 mg PO Q6H PRN (Reason: pain) Qty: 20 0RF Discontinued tamsulosin [Flomax] 0.4 mg capsule 0.4 mg PO DAILY Qty: 10 0RF Discharge Instructions Additional Instructions: You have a ureteral stent in place. While the stent is there, you may see blood in the urine, you may urinate more frequently and you may have discomfort when you urinate. My office will contact you to make arrangements to return to the OR to remove your stent There is no need to strain your urine Activity:: Activity as Tolerated Shower/Bathe:: 24 hours Diet:: As Tolerated Discharge Orders Discharge Orders: Discharge Order (Routine); Ordered 02/09/25 Ordered By: Yong Beckman DS: Diagnosis Discharge Diagnosis (1) Kidney stone on left side: Status: Acute
--- NOTE | 2025-02-09 15:05 | W.PM.OP ---
Operative Note Operative Note PRE-OP DIAGNOSIS: Left ureteral stone POST-OP DIAGNOSIS: same PROCEDURE: cystoscopy, left retrograde pyelogram, left flexible ureteroscopy, extraction of stones SURGEON: Yong Beckman ANESTHESIA TYPE: Local By Surgeon and General LMA/ETT Refer to Anesthesia Record ESTIMATED BLOOD LOSS: 5 PATHOLOGY: other (stone for chemical analysis) COMPLICATIONS: None Patient was transported to: PACU Patient's condition: stable Implants: 4.8 Hungarian by 22 to 30 cm left ureteral stent Indications: This is a 34-year-old gentleman who has a history of a horseshoe kidney. He has had multiple kidney stones in the past. He presented to the emergency department recently with renal colic. He is found to have an obstructing left proximal ureteral stone. He has failed outpatient management and presents now for ureteroscopy Findings: Stone bumped back up into the kidney where it was basketed Procedure Description: The patient was given IV antibiotics and brought to the operating room on 02/09/2025. After successful induction of general anesthesia, he was placed in the dorsal lithotomy position. His genitalia was prepped and draped. 2% Xylocaine jelly was instilled into the urethra to act as a local anesthetic. A 22 Hungarian rigid cystoscope was passed through the urethra into the bladder. Urethra and bladder were inspected with the 30 degree lens. The pendulous, bulbar and membranous urethra was all appeared normal with no strictures. The prostatic urethra showed no significant lateral lobe enlargement. The bladder neck was entered and the bladder mucosa was inspected. The right ureteral orifice appeared normal. The left orifice was in a normal location but appeared is slightly more edematous than would be expected. The left orifice was cannulated with a 5 Hungarian access catheter and a retrograde pyelogram was obtained by injecting Omnipaque through the access catheter under fluoroscopic guidance. No specific filling defect was seen in the ureter and the expectation was that the ureteral stone was flushed back up into the kidney. A guidewire was then passed through the lumen of the access catheter. The access catheter and cystoscope were removed. A dual-lumen catheter was advanced over the wire. A second wire was then positioned and the dual-lumen catheter was removed. We chose one of the wires as a working wire and the other as a safety wire. I passed a ureteral access sheath over the working wire leaving the safety wire in place. I then passed a flexible ureteroscope through the access sheath and advanced the scope up to the kidney. There was a narrowing at the ureteropelvic junction as previously described radiographically. No stones were seen within the ureter, but we did identify stones in the kidney. Each of the stones were basketed in a ZeroTip stone basket and extracted in its entirety. Because of the degree of instrumentation, we elected to place a ureteral stent. We removed the ureteroscope and access sheath. A 4.8 Hungarian variable length stent was advanced over the safety wire. The proximal end of the stent was coiled in the renal pelvis and the distal end was coiled in the bladder. The positioning of the stent was confirmed radiographically. The patient tolerated the procedure well with no complications. Date of Procedure: 02/09/25
--- NOTE | 2025-02-09 15:21 | W.ANESPOSTOP ---
Postoperative Evaluation Date, Time and Location Date Performed: 02/09/25 Time Performed: 15:21 Patient Location: PACU Vital Signs Most Recent Imported Vital Signs: Most Recent Vital Signs Temp Pulse Resp BP Pulse Ox 36.5 C 60 16 139/84 100 02/09/25 15:16 02/09/25 15:16 02/09/25 15:16 02/09/25 15:16 02/09/25 15:16 Pain Score Most Recent Pain Score: Most Recent Pain Score Pain Level 0 02/09/25 11:42 Assessment Mental Status: Arousable with meaningful communication Airway and Respiratory Function: Patent airway with normal (patient baseline) respiratory exam Cardiovascular Function: Hemodynamically Stable Hydration Status: Adequately Hydrated Nausea & Vomiting: No Nausea or Vomiting Pain: Pain is tolerable per patient Peripheral Nerve Block: Patient did not receive a nerve block
[2025-02-09] MEDS: Phenazopyridine 200 MG TAB PO (15:37)
[2025-02-09] MEDS: oxyCODONE 5 MG TAB PO (15:49)
== END 2025-02-09 16:52 | disposition home or self-care (01) ==
PROVIDERS: PCP Family Medicine; Visit Provider Urology
PROC: (CPT 52352; principal; 2025-02-09 12:00)
DX: N20.1 Calculus of ureter (principal)
CPT/HCPCS: 52352; 74420; 82365; J0131; J0690; J1100; J1885; J2003; J2250; J2405; J2704; Q9967

== ENCOUNTER 2025-02-19 07:12 | Day surgery (SDC) | payer SELFPAY ==
[2025-02-19] VITALS (17 sets, daily range): BP systolic 91–114; BP diastolic 47–78; PULSE 49–76; RESP 12–19; TEMP 36.2–36.5; O2SAT 95–100; BMI 35.4
[2025-02-19] MEDS: Lactated Ringers 1,000 ML 80 ML IV (07:55)
--- NOTE | 2025-02-19 08:09 | ANES.PREOP_ITS ---
General Info Date of Service Date Performed: 02/19/25 Height: 5 ft 9 in Weight: 109 kg Body Mass Index (BMI): 35.4 Surgical Procedure: Operation Date: 02/19/25 08:55 Proposed Procedure Side Surgeon p Cystoscopy/Retrograde/Ureteroscopy/Stent Removal Left Yong Beckman MD Meds Allergies and Home Medications Allergies Allergy/AdvReac Type Severity Reaction Status Date / Time No Known Allergies Allergy Verified 02/19/25 07:39 Home Medication ?Medication ?Instructions ?Recorded Unknown [No Known Home Meds] 02/18/25 Current Visit Medications: Current Medications Generic Name Dose Route Start Last Admin Trade Name Freq PRN Reason Stop Dose Admin Ringer's Solution 1,000 mls @ 80 mls/hr 02/19/25 06:00 02/19/25 07:55 IV 02/19/25 23:59 80 mls/hr INFUSION LUPE Administration Cefazolin Sodium/Dextrose 2 gm in 50 mls @ 100 mls/hr 02/19/25 06:00 Ancef Duplex IVPB 02/19/25 23:59 PREOP LUPE IV Miscellaneous Supplies 1 each 02/19/25 06:00 Iv Access IV 02/19/25 23:59 DIRECTED LUPE Sodium Chloride 0 ml 02/19/25 06:00 Normal Saline Flush 10 Ml Syr IV 02/19/25 23:59 PRN PRN Sodium Chloride 0 ml 02/19/25 06:00 Normal Saline 10 Ml Vial IJ 02/19/25 23:59 DIRECTED PRN Sterile Water 0 ml 02/19/25 06:00 Water,Injection,Sterile 10 Ml Vial IJ 02/19/25 23:59 DIRECTED PRN PFSH Active Problems Active Problems: Problem Status Onset Code Cyst of right parotid gland Acute K11.6 Kidney stone on left side Acute N20.0 Fatigue Acute R53.83 Anemia Chronic D64.9 Lumbago with sciatica, right side Acute M54.41 Left thigh pain Acute M79.652 Tick bite of left lower leg Acute S80.862A, W57.XXXA Right sided sciatica Acute M54.31 Left tennis elbow Acute M77.12 Avascular necrosis of bones of both hips Acute M87.051, M87.052 Anxiety and depression Chronic F41.9, F32.A Chest pain Acute R07.9 Acute low back pain Acute M54.5 Neck pain, chronic Acute M54.2, G89.29 Constipation Chronic K59.00 Numbness and tingling of both feet Chronic R20.0, R20.2 Ureteropelvic junction (UPJ) obstruction, left Resolved 06/23/16 N13.5 Obesity Chronic 09/02/13 E66.9 Intermittent explosive disorder Chronic 05/05/14 F63.81 History of concussion Chronic Z87.820 Acute pain of right shoulder Acute 10/07/15 M25.511 Acne vulgaris Acute Unknown L70.0 Medical History Medical History Lumbago with sciatica, left side Kidney stone Urol Dr Powell 2009 L ; Dr Asher; Dr Carrera 08/2014; recur 02/2016: 90% calciumOxalate monophosphate 10% Ca Phosphate (apatate) History of squamous cell carcinoma of skin (04/09/17) Dr. 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 Vazquez): mild gastritis (bx's nml) Depression (09/02/13) Anxiety (05/05/14) Surgical History Surgical History History of tooth extraction EGD - MAC (07/27/17) Tobacco Smoking/Tobacco Use Status: Former Tobacco Use Passive smoking exposure: No Alcohol Alcohol Intake: former Substance Use Substance use: Daily Substance use type: marijuana Details: last use 02/08/25. Vital Signs and Lab Results Vital Signs Most Recent Vital Signs in EMR: Most Recent Vital Signs Temp Pulse Resp BP Pulse Ox 36.5 C 76 16 114/76 97 02/19/25 07:41 02/19/25 07:41 02/19/25 07:41 02/19/25 07:41 02/19/25 07:41 Lab Results Complete Blood Count: WBC, (4.4-10.8) 12.03 10^3/uL H 01/29/25, 03:05 RBC, (4.36-5.78) 4.76 10^6/uL 01/29/25, 03:05 Hgb, (13.5-17.5) 15.4 g/dL 01/29/25, 03:05 Hct, (40.0-50.0) 42.2 % 01/29/25, 03:05 Plt Count, (130-400) 202 10^3/uL 01/29/25, 03:05 Complete Metabolic Panel: Sodium, (136-145) 137 mmol/L 01/29/25, 03:05 Potassium, (3.5-5.1) 4.0 mmol/L 01/29/25, 03:05 Chloride, (98-107) 104 mmol/L 01/29/25, 03:05 Carbon Dioxide, (21.0-32.0) 24.4 mmol/L 01/29/25, 03 :05 BUN, (7-18) 11 mg/dL 01/29/25, 03:05 Creatinine, (0.70-1.30) 1.3 mg/dL 01/29/25, 03:05 Est GFR (CKD-EPI 2020), (mL/min/1.73m2) 74.39 01/29/25, 03:05 Calcium, (8.5-10.1) 9.2 mg/dL 01/29/25, 03:05 Albumin, (3.4-5.0) 4.3 g/dL 01/29/25, 03:05 Glucose, (74-106) 121 mg/dL H 01/29/25, 03:05 Liver Function Panel: ALT, (16-63) 41 U/L 01/29/25, 03:05 AST, (15-37) 20 U/L 01/29/25, 03:05 Imaging and Studies Imaging and Studies Study information below may be from another EMR and interpreted by another provider. Please see original notes in EMR for more complete details. EKG Summary: EKG PATIENT NAME: Christiano Cavazos UNIT #: [id number] ORDERING PROVIDER: Theron Galindo M.D. PRIMARY CARE PROVIDER: ANTELMO LOWERY NP DATE/TIME OF SERVICE: 04/29/21 0356 : 1990 PERFORMING LOCATION: ER APPROVED REPORT Exam: Resting ECG Reason for Exam: chest pain Patient Location: E HR:80 bpm ECG Measurements Heart Rate 80 AXIS ND 126 P 51 QRSd 101 QRS -3 QT 381 T74 QTc 439 Conclusion Sinus rhythm...normal P axis, V-rate 60- 99 Normal Champion There are no significant changes compared to prior EKG performed on 04/29/2021 at 00:05. Anesthesia Assessment and Plan Anesthesia History Personal History: No History of Anesthesia Complications Family History: No Family History of Anesthesia Complications Exercise Tolerance Exercise Tolerance: Metabolic Equivalents>4 Pertinent Negatives Pertinent Negatives: No Symptoms of GERD, No Major Cardiovascular Symptoms or Complaints, No Major Pulmonary Symptoms or Complaints and No History of CVA/TIA Cardiac & Pulmonary Exam Cardiac Exam: Normal S1/S2 Heart Sounds Pulmonary Exam: Clear Bilateral Breath Sounds Implantable Cardiac Device Does patient have a Pacemaker or an ICD?: No Airway Exam Known Difficult Airway: No Mallampati Class: 4 Mouth Opening: Narrow (< 3cm) Thyromental Distance: Less than 3 cm Facial Hair: Full Reese Neck Range of Motion: Full ROM Neck Circumference: Thick Teeth Condition: Normal Dentition ASA Classification ASA Score: ASA 2 Emergency Case?: No NPO Status NPO Status: NPO Clears >2 hours, Solids >8 hours Anesthesia Plan Resuscitation Status: Full Code Anesthesia Technique: General Anesthesia Airway Planned: LMA Monitors Used: Standard Monitors
--- NOTE | 2025-02-19 08:45 | HPE_ITS ---
Date of service: 02/19/25 Time of Service: 08:45 Assessment and Plan Assessment and plan (1) Kidney stone on left side: Status: Acute (2) Ureteropelvic junction (UPJ) obstruction, left: Status: Resolved Assessment and plan: We will plan to remove his ureteral stent and run the flexible scope back up to the kidney to make sure all stone fragments have been addressed History of Present Illness History of Present Illness Chief Complaint: Left ureteral stone Narrative: This is a 34-year-old gentleman who has a history of a horseshoe kidney. He has a left ureteropelvic junction narrowing. He has a history of calcium-based ki dney stones He presented to the emergency department recently with renal colic on the left side. He had a stone obstructing at the UPJ. He was treated with ureteroscopy. The stone was blocked back up into the kidney. We were able to extract stones from the renal pelvis and calyces but we are not certain that all stones have been addressed. We placed a ureteral stent and he returns now to have the stent removed and follow-up ureteroscopy to ensure all stone fragments have been addressed. He has had significant stent discomfort since his original procedure. Review of Systems Narrative: No fevers or chills No vision change or dysphasia No diabetes or thyroid dysfunction No shortness of breath, cough or hemoptysis No chest pain or palpitations No nausea, vomiting, hepatitis, ulcers, jaundice No seizures, strokes or peripheral neuropathy No bleeding disorders or anemia No gout PFSH All Active Problems Cyst of right parotid gland (Acute) Kidney stone on left side (Acute) Fatigue (Acute) Anemia (Chronic) Lumbago with sciatica, right side (Acute) Left thigh pain (Acute) Tick bite of left lower leg (Acute) Right sided sciatica (Acute) Left tennis elbow (Acute) Avascular necrosis of bones of both hips (Acute) Anxiety and depression (Chronic) Chest pain (Acute) Acute low back pain (Acute) Neck pain, chronic (Acute) Constipation (Chronic) Metamucil PRN Numbness and tingling of both feet (Chronic) 2018: NL NCS Obesity (Chronic 09/02/13) BMI 38; best wt/10 yr = 180 Intermittent explosive disorder (Chronic 05/05/14) History of concussion (Chronic) Work injury Acute pain of right shoulder (Acute 10/07/15) Acne vulgaris (Acute Unknown) Medical History Lumbago with sciatica, left side Kidney stone Urol Dr Powell 2009 L hydro; Dr Asher; Dr Carrera 08/2014; recur 02/2016: 90% calciumOxalate monophosphate 10% Ca Phosphate (apatate) History of squamous cell carcinoma of skin (04/09/17) Dr. 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 Vazquez): mild gastritis (bx's nml) Depression (09/02/13) Anxiety (05/05/14) Surgical History History of tooth extraction EGD - MAC (07/27/17) Family History Mother Diabetes Father Neoplasm Prostate CA dx'ed 70 y/o Heart disease Social History Smoking/Tobacco Use Status: Former Tobacco Use Quit Date: 03/29/24 Smoking risk assessment performed?: Yes Alcohol Intake: former Drug use: Daily Substance use type: marijuana Details: last use 02/08/25. Caregiver/Support person: No Housing: apartment Communication Needs: None current occupation: [email or web address] Pets and animals: Yes Pets and animals: cat(s) Sexually active: Yes Current gender identity: male What type of physical activity do you participate in: regular exercise Frequency: daily Do you feel safe at home: Yes Do you feel safe in your relationship?: Yes Meds Allergies and Home Medications Allergies Allergy/AdvReac Type Severity Reaction Status Date / Time No Known Allergies Allergy Verified 02/19/25 07:39 Home Medications ?Medication ?Instructions ?Recorded ?Confirmed ?Type Unknown [No Known Home Meds] 02/18/25 0 02/18/25 History Exam Const General: cooperative Neck Neck: supple Resp Effort & Inspection: normal respiratory effort Auscultation: clear to auscultation bilaterally Cardio Rate: regular rate Rhythm: regular rhythm GI Palpation: soft and no masses Neuro General: patient alert, patient awake and patient oriented x3 Results Labs Labs: RUN DATE: 02/19/25 [facility] PAGE 1 RUN TIME: [id number] RUN USER: [place] [address] Dinorah Shaw MD PATIENT REPORT PATIENT: Christiano Cavazos LOC: [facility] U #: [id number] /SX: 1990 M ROOM: RE02/09/[address]: GERMAINE THOMPSON MD STATUS: [place] [facility] [place] SPEC #: [id number] CONCHA: 02/09/25 STATUS: COMP REQ #: [id number] RECD: 02/09/[address]: GERMAINE THOMPSON MD ENTERED: 02/09/[address]: Terrence Gonzales M.D. FAX #: ORDERED: Stone Anaylsis QUERIES: Source: Left Kidney Test Result Flag Reference Verified Kidney Stone Analysis Source: Left Kidney 02/17/25 Interpretation See Comment 02/17/25 80% Calcium phosphate (apatite). 20% Calcium oxalate dihydrate. Result Comment See Comment 02/17/25 For stones containing calcium oxalate, calcium phosphate, and/or uric acid, a 24 hr urinary supersaturation test may help detect underlying risk factors for this type of stone formation and provide guidance for a stone prevention strategy. ADDITIONAL INFORMATION This test was developed and its performance characteristics determined by [facility] in a manner consistent with CLIA requirements. This test has not been cleared or approved by the U.S. Food and Drug Administration. Test Performed by: [facility] - [address] [address] [employer] Tender: Shavonne Christina Ph.D.; CLIA# [id number] Patient: Christiano Cavazos LABORATORY Acct#[id number] Unit#[id number] Last Vital Signs Temp 36.5 C 02/19/25 07:41 Pulse 76 02/19/25 07:41 Resp 16 02/19/25 07:41 BP 114/76 02/19/25 07:41 Pulse Ox 97 02/19/25 07:41 Time Spent Time spent with Patient: <40 minutes Time was spent: other
[2025-02-19] MEDS: Lidocaine 2% Jelly 11 ML SYR (09:36)
[2025-02-19] MEDS: Omnipaque 300 MG/ML 50 ML BTL (09:37)
[2025-02-19] MEDS: ceFAZolin 2 GM/50 ML BAG IVPB (09:38)
--- NOTE | 2025-02-19 10:11 | W.PM.DSUDISC ---
Date of service: 02/19/25 Discharge Plan Disposition Patient Disposition: Home Condition: Stable Discharge Details Reason For Visit: stent removal Attending Provider: Yong Beckman Primary Care Provider: Terrence Gonzales Home Meds and New Rx's Prescriptions: No Action No Known Home Meds Discharge Instructions Additional Instructions: There is no need to strain your urine Follow-up appointment in about 6 to 8 weeks. We will plan to do a renal ultrasound in the office at that time Stand Alone Forms: Anesthesia Discharge Inst., [facility] Shyanne Gruber ([facility]) Activity:: Activity as Tolerated Shower/Bathe:: 24 hours Diet:: As Tolerated Discharge Orders Discharge Orders: Discharge Order (Routine); Ordered 02/19/25 Ordered By: Yong Beckman DS: Diagnosis Discharge Diagnosis (1) Kidney stone on left side: Status: Acute (2) Ureteropelvic junction (UPJ) obstruction, left: Status: Resolved
--- NOTE | 2025-02-19 10:13 | ROE_ITS ---
Operative Note Operative Note PRE-OP DIAGNOSIS: Left ureteral stone POST-OP DIAGNOSIS: same PROCEDURE: Cystoscopy, remove left ureteral stent, left retrograde pyelogram, left flexible ureteroscopy SURGEON: Yong Beckman ANESTHESIA TYPE: Local By Surgeon and General LMA/ETT Refer to Anesthesia Record ESTIMATED BLOOD LOSS: 5 PATHOLOGY: none sent COMPLICATIONS: None Patient was transported to: PACU Patient's condition: stable Implants: none Indications: This is a 34-year-old gentleman who has a history of a horseshoe kidney. He has a left ureteropelvic junction obstruction. He has had calcium-based stones previously. He recently presented to the emergency department with an obstructing left stone at the UPJ. He was treated with ureteroscopy. I was able to bump the stone back up into the renal pelvis where the stone was manipulated and extracted. Additional stones were seen in the calyces but we were not convinced that all stones had been treated. We placed a ureteral stent and he returns now for repeat ureteroscopy and stone extraction Findings: Large amount of edema at the left ureteral orifice likely related to the stent No significant residual stone burden visualized Procedure Description: The patient was given IV antibiotics and brought to the operating room on 02/19/2025. After successful induction of general anesthesia, he was placed in the dorsal lithotomy position. His genitalia was prepped and draped. 2% Xylocaine jelly was instilled into the urethra. The 22 Tamazight rigid cystoscope was passed through the urethra into the bladder. Urethra and bladder were inspected with a 30 degree lens. The pendulous, bulbar membranous urethra appeared normal with no strictures. The prostatic urethra showed no significant lateral lobe enlargement. The bladder neck was entered and the bladder mucosa was inspected. The stent could be seen protruding from the left ureteral orifice. There was a large amount of edema surrounding the orifice. The stent was grasped with alligator forceps and brought to the level of the urethral meatus. The guidewire was advanced through the lumen of the stent and the stent was removed leaving the wire in place. I then passed a dual-lumen catheter over the wire and advanced the catheter to the upper ureter. I injected Omnipaque through the second port of the dual- lumen catheter under fluoroscopic guidance. This allowed us to visualize the anatomy of the kidney and the calyces. I then positioned a second wire and removed the dual-lumen catheter. We chose one of the wires as a working wire and the other as a safety wire. The flexible ureteroscope was advanced over the working wire and the scope was advanced to the upper ureter. The upper ureter and each of the left sided calyces were directly inspected with the flexible ureteroscope. No significant stone debris was identified. The scope was then removed. We inspected the ureter on the way out and found no evidence of ureteral injury and no ureteral stones. We then removed the safety wire. The patient tolerated this procedure well with no complications. Date of Procedure: 02/19/25
--- NOTE | 2025-02-19 10:15 | DI.RAD_ITS ---
Exam(s) XR RETROGRADE IN OR EXAM: XR RETROGRADE IN OR CLINICAL HISTORY: LEFT KIDNEY STONE. TECHNIQUE: Fluoroscopy was provided for the referring physician for guidance with performing retrograde procedure. COMPARISON: XA XR RETROGRADE IN OR from 02/09/2025 FINDINGS: Please see procedure note for details. Fluoro time: 16.3 seconds RADIATION DOSE DELIVERED: carmella Donohue=5.52 mGy
[2025-02-19] MEDS: Phenazopyridine 200 MG TAB PO (11:25)
--- NOTE | 2025-02-19 11:27 | W.ANESPOSTOP ---
Postoperative Evaluation Date, Time and Location Date Performed: 02/19/25 Time Performed: 11:28 Patient Location: Day Surgery Unit Vital Signs Most Recent Imported Vital Signs: Most Recent Vital Signs Temp Pulse Resp BP Pulse Ox 36.2 C L 53 L 14 100/55 L 100 02/19/25 11:22 02/19/25 11:22 02/19/25 11:22 02/19/25 10:58 02/19/25 11:22 Pain Score Most Recent Pain Score: Most Recent Pain Score Pain Level 0 02/19/25 11:22 Assessment Mental Status: Awake (Alert & Oriented to Patient Baseline) Airway and Respiratory Function: Patent airway with normal (patient baseline) respiratory exam Cardiovascular Function: Hemodynamically Stable Hydration Status: Adequately Hydrated Nausea & Vomiting: No Nausea or Vomiting Pain: Pt. Denies Any Pain Peripheral Nerve Block: Patient did not receive a nerve block
== END 2025-02-19 11:57 | disposition home or self-care (01) ==
PROVIDERS: PCP Family Medicine; Visit Provider Urology
PROC: (CPT 52310; principal; 2025-02-19 08:45)
DX: N20.0 Calculus of kidney (principal); N13.5 Crossing vessel and stricture of ureter without hydronephrosis; Q63.1 Lobulated, fused and horseshoe kidney
CPT/HCPCS: 52310; 74420; J0690; J1100; J1885; J2003; J2250; J2405; J2704; J3010; Q9967

== ENCOUNTER 2025-03-26 11:52 | Outpatient (CLI) | payer OTHER, SELFPAY ==
--- NOTE | 2025-03-26 11:45 | RT.EKG_ITS ---
APPROVED REPORT Exam: Resting ECG Reason for Exam: fatigue Patient Location: O HR:70 bpm ECG Measurements Heart Rate 70 AXIS NV 136 P 38 QRSd 98 QRS 9 QT 403 T 48 QTc 435 Conclusion Sinus rhythm...normal P axis, V-rate 50- 99 RSR' in V1 or V2, probably normal variant...small R' only Normal Electrocardiogram
== END 2025-03-26 11:53 | disposition home or self-care (01) ==
LOC: DI.KIM 11:53
PROVIDERS: PCP Family Medicine; Visit Provider Family Medicine
DX: R53.83 Other fatigue (principal)
CPT/HCPCS: 93010

== ENCOUNTER 2025-03-26 13:06 | Outpatient (CLI) | payer OTHER, SELFPAY ==
[2025-03-26 12:58] LABS: Abs Immature Grans 0.01 10^3/uL (0.0-0.06); HCT 40.4 % (40.0-50.0); HGB 14.0 g/dL (13.5-17.5); Immature Grans % 0.1 %; MCH 31.2 pg (27.0-33.0); MCHC 34.7 % (32.0-36.0); MCV 90 fL (80-95); MPV 8.8 fL (8.0-11.0); Platelet Count 219 10^3/uL (130-400); RBC 4.49 10^6/uL (4.36-5.78); RDW 12.0 % (11.8-14.1); RDW-SD 38.9 fL; WBC 8.18 10^3/uL (4.4-10.8)
[2025-03-26 13:29] LABS: ALT 63 U/L (16-63); AST 26 U/L (15-37); Albumin 3.7 g/dL (3.4-5.0); Alkaline Phosphatase 67 U/L (46-116); Anion Gap 8.7 mmol/L (3-11); BUN 11 mg/dL (7-18); Bilirubin, Total 0.3 mg/dL (0.2-1.0); CO2 28.3 mmol/L (21.0-32.0); Calcium 9.0 mg/dL (8.5-10.1); Chloride 105 mmol/L (98-107); Estimated GFR 81.89 (mL/min/1.73m2); Glucose 93 mg/dL (74-106); Potassium 3.9 mmol/L (3.5-5.1); Sodium 142 mmol/L (136-145); TSH 2.00 uIU/mL (0.36-3.74); Total Protein 7.4 g/dL (6.4-8.2)
[2025-03-26 13:41] LABS: Hemoglobin A1C 5.3 % (<5.7)
== END 2025-03-26 13:07 | disposition home or self-care (01) ==
LOC: LBO 13:06
PROVIDERS: PCP Family Medicine; Visit Provider Family Medicine
DX: R53.83 Other fatigue (principal); Z13.9 Encounter for screening, unspecified
CPT/HCPCS: 36415; 80053; 83036; 84443; 85025

== ENCOUNTER 2025-04-07 15:14 | Outpatient (REF) | payer OTHER, SELFPAY ==
--- NOTE | 2025-04-07 14:00 | PAPNONF_PTH ---
PATIENT: Christiano Cavazos LOC: [facility] U#:[id number] AGE/SX: 34/M ROOM: RE04/07/[address]: Arabella Lemon : 1990 BED: DIS: 04/07/2025 SPEC #: [id number] RECD: 04/07/25 18:11 STATUS: APRIL REArmando #: [id number] CNOCHA: 04/07/25 14:[address]: Arabella Lemon DEPT: [facility] Cytology RECD BY: Alissa Oreilly ENTERED: 04/07/25 18:12 SP TYPE: RANULFO REBOLLAR DR: Terrence Gonzales MD Tissues: 1 - BODY FLUID CYTO-FINE NEEDLE ASPIRATE-[facility] Procedures: BODY FLUID CYTO-FINE NEEDLE ASPIRATE-[facility] Comments: [id number] (REFRIGERATED)
== END 2025-04-07 15:15 | disposition home or self-care (01) ==
LOC: LBN 15:14
PROVIDERS: PCP Family Medicine; Visit Provider Registered Nurse Maternal Newborn
DX: R22.1 Localized swelling, mass and lump, neck (principal)
CPT/HCPCS: 88142; 88104

== ENCOUNTER 2025-04-30 14:31 | Outpatient (REF) | payer OTHER, SELFPAY | END 2025-04-30 14:32 | disposition home or self-care (01) | LOC: LBN 14:31 | PROVIDERS: PCP Family Medicine; Visit Provider Nurse Practitioner Gerontology | DX: N39.0 Urinary tract infection, site not specified (principal) | CPT/HCPCS: 87077; 87086; 87186 ==

== ENCOUNTER 2025-05-02 14:20 | Emergency (ER) | payer OTHER, SELFPAY ==
[2025-05-02 14:24] VITALS: BP 147/95; PULSE 89; RESP 16; TEMP 36.8; O2SAT 100
[2025-05-02 14:44] LABS: Glucose Negative (Negative)
--- NOTE | 2025-05-02 14:45 | DI.CT_ITS ---
Exam(s) CT ABDOMEN PELVIS WO/W EXAM: CT ABDOMEN PELVIS WO/W CLINICAL HISTORY: CT urogram, L. flank pain, hx horseshoe kidney. TECHNIQUE: Imaging Protocol: Axial computed tomography images with coronal and sagittal reformatted images were created and reviewed CONTRAST MATERIAL: Intravenous: Omnipaque-350 100cc Oral: None COMPARISON: CT CT ABDOMEN PELVIS WO from 01/29/2025 FINDINGS: VISUALIZED LUNG BASES: No nodules nor pleural effusions evident. ABDOMEN: There is no ascites. LIVER: There are no focal hepatic lesions evident. No dilated intrahepatic ducts. GALLBLADDER/BILIARY: No obvious gallbladder pathology. CBD is not dilated. PANCREAS: No evidence of pancreatic mass nor dilatation of the pancreatic duct. SPLEEN: Spleen is not enlarged. No obvious intrasplenic lesions. Splenic and portal veins are patent. ADRENALS: There are no significant adrenal masses. KIDNEYS:Horseshoe kidney configuration again noted. No solid renal masses. There are small nonobstructive intrarenal calculi bilaterally, 1 in each kidney. The previously present calculus in the proximal left ureter is no longer seen. The ureters are not significantly dilated and there are no calculi within the ureters nor evidence of radiopaque calculus within the urinary bladder lumen. There is mild bilateral hydronephrosis but this is more related to the orientation of the renal pelves than actual obstruction. On the 7 minutes delayed images the intravenous contrast has progressed down the ureters to the level of the urinary bladder and bilateral ureterovesical jets are identified. There is no obvious mass nor clots nor calculi in the urinary bladder lumen. The urinary bladder is mildly distended. The prostate gland is not enlarged. Seminal vesicles unremarkable ABDOMINAL AORTA: Abdominal aorta is not enlarged. LYMPH NODES:There is no retroperitoneal nor paraaortic adenopathy. ABDOMINAL WALL: No evidence of significant anterior abdominal wall nor inguinal hernia. GI: There is no evidence of bowel obstruction, free air, nor abscess. PELVIS: GI: No evidence of appendicitis.No evidence of sigmoid diverticulitis. LYMPH NODES: There is no intrapelvic nor inguinal adenopathy. REPRODUCTIVE: Prostate size normal. URINARY BLADDER: Mildly distended but otherwise unremarkable. OSSEOUS: There is chronic disc space narrowing at L3-4 and L4-5 levels. There is 1 cm anterolisthesis of L3 upon L4. This is related to bilateral pars defects at the L3 level, similar to previous and there is advanced disc space narrowing at L3-4 level again noted. The amount of anterior slippage of L3 upon L4 as not increased and remains approximately 1 cm. There is moderate-advanced disc space narrowing at L4-5 level again noted. No pars defects nor listhesis at this level. There is only mild disc space narrowing at L5-S1 level. No pars defects at L5 level. There is avascular necrosis of both femoral heads noted, similar to previous. No femoral head collapse at this time. Sacroiliac joints appear unremarkable. IMPRESSION: 1. Horseshoe kidney configuration again noted. There is an element of dilatation of the collecting system on both sides but this is probably more related to the abnormal orientation of the renal pelves (which are directed anteriorly because of the horseshoe configuration) more so than related to an ob structing abnormality distally. Indeed, this study reveals dilatation of the renal pelves and calices bilaterally just to the UPJ levels but at 7 minutes delay there is contrast in the entire length of the nondilated ureters below this level as well as bilateral the ureterovesical jets demonstrated in the urinary bladder. There are no obstructing calculi in the bladder and there are no calculi nor clots in the urinary bladder lumen. There are small remaining calculi in both kidneys, measuring approximately 3 millimeter both sides. There are no obstructing calculi at this time and the previously present larger calculus seen on CT scan of 01/29/2025 has passed and is also not seen in the urinary bladder. 2. No evidence of appendicitis nor diverticulitis nor cholecystitis. 3. 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 4. There is again noted avascular necrosis of both hips. Report called by myself to ER physician 05/02/2025 at 4 p.m. RADIATION DOSE DELIVERED: 2,120.41mGy.cm Total DLP DATA REPOSITORY: All CT scans at this facility are submitted to the National Radiology Data Registry (NRDR) Dose Index Registry (DIR) with the [employer] (ACR). RADIATION OPTIMIZATION: All CT scans at this facility use at least one of these dose optimization techniques: automated exposure control; mA and/or kV adjustment per patient size (includes targeted exams where dose is matched to clinical indication); or iterative reconstruction.
[2025-05-02 14:53] LABS: C & S Indicated? No; RBC Negative HPF (0-2)
--- NOTE | 2025-05-02 14:54 | ED.GENADUL_ITS ---
Discharge Plan Disposition Patient Disposition: Home Condition: Stable Discharge Details Clinical Impression: Acute left flank pain Primary Care Provider: Terrence Gonzales ED Provider: Kelsey Boogie Home Meds and New Rx's Prescriptions: New tamsulosin 0.4 mg capsule 0.4 mg PO DAILY Qty: 14 0RF No Action ciprofloxacin HCl 500 mg tablet 500 mg PO BID Qty: 14 0RF Discharge Instructions Instructions: Flank Pain ED Additional Instructions: You were seen in the emergency department today for evaluation of left flank pain. In our department you do full physical examination performed, and had reassuring laboratory studies. Your urinalysis shows that your UTI is improving, and you should continue to take the ciprofloxacin until it is gone, even if you start to feel better. You had a CT urogram today which did not show any sign of stones or other significant abnormalities to explain your symptoms. You do still have some hydronephrosis in your horseshoe kidney, but do not require emergent stenting or other surgical procedure today. I discussed your case with urology, who recommend completing your course of ciprofloxacin, and restarting the tamsulosin, 1 tablet daily to improve urinary flow. There are a couple of reasons why you may be having pain, though we are unable to say for certain at this time. One of the reasons may be irritation, spasming, or narrowing of the ureter (the tube that connects your kidney to your bladder) due to the stent that you had placed in January. You may also be ex periencing a partial blockage at the connection between the ureter and the kidney due to your horseshoe kidney. Please use therapeutic dosing of Tylenol (acetaminophen) & Advil (ibuprofen) in an alternating fashion as follows: Take 1000mg of Tylenol every 6 hours without missing doses- that is 4 times per day. Snf in between the Tylenol doses, take 600mg of Advil also on a 6 hour schedule, that is also 4 times per day. With this strategy, you will be taking something for fever/pain as often as every 3 hours. The daily maximum dosing of Tylenol is 4000mg, and the daily maximum dosing of Advil is 2400mg. Please note that some common cold medications & prescription pain medications may contain acetaminophen and you need to read OTC drug labels and factor that in to maximum daily doses. I recommend that you use the morphine tablets that I gave you as needed for severe pain that does not respond to the Tylenol and ibuprofen strategy. Please do not take this medication if you are going to be driving, operating machinery, as it can cause excessive sleepiness. Please contact the urology department on Sunday to discuss this visit and a follow-up appointment. Please follow-up with your primary care provider in the next few days to discuss this visit and any symptoms that change, worsen, or persist. Thank you for allowing us to be part of your care. Stand Alone Forms: Portal Information Referrals: Yong Beckman MD [ [facility] STAFF PHYSICIAN, Urology] - 5 days HPI General Mode of arrival: ambulatory . Date/Time Provider Initiated Documentation: 05/02/25 14:22 . Limitations to Documentation: no limitations . Information obtained by: patient and old records reviewed . HPI Narrative: This is a 34-year-old male patient with a past medical history significant for horseshoe kidney, 7 mm stone removed in January of this year, status post stent removal, history of anemia, presenting for evaluation of left flank pain. The patient reports that his flank pain has been intermittent since his stent removal, but became much worse on of this week. He did discuss the symptoms with urology clinic, had a UA performed that showed some leukocyte esterase and was started on ciprofloxacin. He states that he took this medication yesterday, has not yet taken his dose today. He was scheduled for a CT urogram, but presented today with worsening left flank pain/left side pain, and a tugging/painful sensation in his bladder and penis when he urinates. He has not noted any fevers or chills, has been eating and drinking typically though has felt more thirsty than usual, has had nausea but no vomiting. Denies bloody stools or diarrhea, that his stools today were slightly looser than typical for him. Has taken ibuprofen and Tylenol in the outpatient environment without significant improvement, last dose this morning. Related Data Home Medications ?Medication ?Instructions ?Recorded ?Confirmed ciprofloxacin HCl 500 mg tablet 500 mg PO BID uti #14 tabs 05/01/25 05/02/25 tamsulosin 0.4 mg capsule 0.4 mg PO DAILY #14 caps 11/19 Previous Rx's ?Medication ?Instructions ?Recorded ciprofloxacin HCl 500 mg tablet 500 mg PO BID uti #14 tabs 05/01/25 tamsulosin 0.4 mg capsule 0.4 mg PO DAILY #14 caps 11/19 Allergies Allergy/AdvReac Type Severity Reaction Status Date / Time No Known Allergies Allergy Verified 05/02/25 14:28 General Stated Complaint: FlankPain SERGE: 3 Exam Narrative Exam Narrative: Gen: Awake and alert, in no apparent distress HEENT: Non-icteric sclera Neck: Supple Lungs: No apparent respiratory distress, normal respiratory effort. CV: Appears well perfused Abdomen: Non-distended, soft, tenderness to palpation in the lateral aspect of the left upper and lower quadrants without rigidity, rebound, or guarding. MSK: Moves 4 extremities without apparent limitation in ROM. The patient has no midline T or L-spine tenderness or step-offs, no overlying skin changes, some left CVA tenderness is present Skin: Visualized skin without rashes, cyanosis. Neuro: Normal Gait, no obvious focal deficits or facial asymmetry. Speaks in full, clear sentences. Psych: Appropriate for situation. Course Vital Signs Vital signs: Vital Signs Temperature 36.8 C 05/02/25 14:24 Pulse 89 05/02/25 14:24 Respiratory Rate 16 05/02/25 14:24 Blood Pressure 147/95 H 05/02/25 14:24 Pulse Oximetry 100 05/02/25 14:24 Temperature 36.8 C 05/02/25 14:24 Temperature Source Oral 05/02/25 14:24 Pulse 89 05/02/25 14:24 Respiratory Rate 16 05/02/25 14:24 Blood Pressure 147/95 H 05/02/25 14:24 Pulse Oximetry 100 05/02/25 14:24 Oxygen Delivery Method Room Air 05/02/25 14:24 Oxygen Flow Rate 0 05/02/25 14:24 Lab/Test Results Lab/Test Results: Laboratory Tests Range/Units 05/02/25 14:37 Urine Color (Yellow) Yellow Urine Clarity (Clear) Clear Urine pH (5-8) 6.0 Ur Specific [place] (1.005-1.025) 1.010 Urine Protein (Neg-Trace) mg/dL Negative Urine Ketones (Negative) mg/dL 15 H Urine Blood (Negative) Negative Urine Nitrite (Negative) Negative Urine Bilirubin (Negative) Negative Urine Urobilinogen (Up to 0.2) mg/dL 0.2 Ur Leukocyte Esterase (Negative) Small H Urine RBC (0-2) HPF Negative Urine WBC (0-5) HPF 3-5 Ur Epithelial Cells (Negative) HPF Negative Urine Crystals (Negative) HPF Negative Urine Bacteria (Negative) HPF Negative Urine Casts (Negative) LPF Negative Urine Mucus (Negative) Negative Ur Culture Indicated? No Urine Glucose (Negative) mg/dL Negative Medical Decision Making This is a 34-year-old male patient presenting for evaluation of left flank pain. Differential includes but is not limited to renal stone, certainly considered UTI and pyelonephritis, considered compressive/obstructive pathology given the patient's anatomic variant (horseshoe kidney). Certainly considered other intra-abdominal pathology including gastritis/PUD, pancreatitis, cholecystitis, hepatitis, appendicitis, diverticulitis, exam is less concerning for aortic pathology or bowel obstruction. Considered metabolic and electrolyte derangements, anemia, dehydration, kidney injury, liver pathology. Considered musculoskeletal etiologies of back pain, no trauma to suggest fracture or dislocation, no neurodeficits or bowel/bladder incontinence to increase my concern for spinal cord compressive syndromes Such as cauda equina. I will obtain labs to include CBC, CMP, magnesium, lipase, lactate, and urinalysis. I will obtain a CT abdomen pelvis with and without contrast/urogram to better characterize etiology of the patient's symptoms. I will provide the patient with a liter of IV fluids and medications to include Toradol and Zofran for initial symptomatic management. - I independently interpreted the laboratory studies, which show no significant leukocytosis, anemia, or thrombocytopenia. The chemistry panel is without evidence of electrolyte abnormality, kidney dysfunction, or liver injury. Lactate and lipase are low, urinalysis with small leukocyte esterase, but no significant pyuria and no bacteria, making worsening UTI highly unlikely when compared to the most recent urinalysis with moderate leukocyte esterase. The patient did require an additional dose of Dilaudid for ongoing left flank pain that did not respond to Toradol. CT urogram was reviewed by myself and discussed at length with the radiologist, the patient's horseshoe kidney does have a few small radiopaque stones that are nonobstructive, and has moderate hydronephrosis without evidence of obstructive pathology with normal contrast entering the nondilated ureters and bladder. No inflammatory changes, no other intra-abdominal pathology identified, the patient does have known osseous abnormalities including bilateral avascular necrosis of the femurs, unchanged, and L3 pars defects with disc space narrowing, also unchanged from prior. I [place] [facility] [place] to discuss the patient's ongoing symptoms. Dr. Vera reviewed the imaging and the patient's history, and agrees that no emergent pathology is identified on the ED workup. He speculates that part perhaps the patient could be experiencing a stricture or inflammation of the ureter post stent, or could have a UPJ constriction/partial obstruction. He recommends trialing Flomax, providing the patient with multimodal pain control, and following up with urology early next week. I shared all of this with the patient, and at this time, the patient has had a full medical evaluation and is safe for discharge to home. They are hemodynamically stable, ambulatory, and tolerating PO. They are understanding of the follow-up plan and return precautions. They left our facility without incident. Kelsey Boogie MD PFSH All Active Problems (Updated 05/02/25 @ 17:27 by Kelsey Boogie MD) Acute left flank pain (Acute) Mass in neck (Acute) Cyst of right parotid gland (Acute) Fatigue (Acute) Anemia (Chronic) Lumbago with sciatica, right side (Acute) Left thigh pain (Acute) Tick bite of left lower leg (Acute) Right sided sciatica (Acute) Left tennis elbow (Acute) Avascular necrosis of bones of both hips (Acute) Anxiety and depression (Chronic) Chest pain (Acute) Acute low back pain (Acute) Neck pain, chronic (Acute) Constipation (Chronic) Metamucil PRN Numbness and tingling of both feet (Chronic) 2018: [place] NCS Obesity (Chronic 09/02/13) BMI 38; best wt/10 yr = 180 Intermittent explosive disorder (Chronic 05/05/14) History of concussion (Chronic) Work injury Acute pain of right shoulder (Acute 10/07/15) Acne vulgaris (Acute Unknown) Medical History (Updated 05/02/25 @ 17:27 by Kelsey Boogie MD) UTI (urinary tract infection) Lumbago with sciatica, left side Kidney stone Urol Dr Powell 2009; Dr Asher; Dr Carrera 08/2014; recur 02/2016: 90% calciumOxalate monophosphate 10% Ca Phosphate (apatate) History of squamous cell carcinoma of skin (04/09/17) Dr. 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 Vazquez): mild gastritis (bx's nml) Depression (09/02/13) Anxiety (05/05/14) Surgical History History of tooth extraction EGD - MAC (07/27/17) Family History Mother Diabetes Father Neoplasm Prostate CA dx'ed 70 y/o Heart disease Social History Smoking/Tobacco Use Status: Current every day Tobacco Type: smokeless tobacco Smoking risk assessment performed?: Yes Alcohol Intake: former Drug use: Daily Substance use type: marijuana Caregiver/Support person: No Housing: apartment Communication Needs: None current occupation: [employer] Pets and animals: Yes Pets and animals: cat(s) Sexually active: Yes Current gender identity: male What type of physical activity do you participate in: regular exercise Frequency: daily Do you feel safe at home: Yes Do you feel safe in your relationship?: Yes
[2025-05-02] MEDS: Lactated Ringers 1,000 ML 1000 ML IV (15:03)
[2025-05-02] MEDS: Ondansetron 4 MG/2 ML VIAL IVP (15:04)
[2025-05-02] MEDS: Ketorolac 15 MG/ML VIAL IVP (15:04)
[2025-05-02 15:12] LABS: Abs Immature Grans 0.02 10^3/uL (0.0-0.06); HCT 42.4 % (40.0-50.0); HGB 14.8 g/dL (13.5-17.5); Immature Grans % 0.3 %; MCH 31.2 pg (27.0-33.0); MCHC 34.9 % (32.0-36.0); MCV 89 fL (80-95); MPV 8.9 fL (8.0-11.0); Platelet Count 187 10^3/uL (130-400); RBC 4.75 10^6/uL (4.36-5.78); RDW 11.8 % (11.8-14.1); RDW-SD 38.1 fL; WBC 7.51 10^3/uL (4.4-10.8)
[2025-05-02] MEDS: Normal Saline - Diluent 50 ML VIAL IJ ×2 (15:20→15:25)
[2025-05-02] MEDS: Normal Saline Flush 10 ML SYR IVP (15:20)
[2025-05-02] MEDS: Omnipaque 350 MG/ML 100 ML BTL IJ (15:20)
[2025-05-02 15:33] LABS: Lipase 24 U/L (<53)
[2025-05-02 15:35] LABS: Magnesium 1.9 mg/dL (1.6-2.6)
[2025-05-02 15:36] LABS: ALT 43 U/L (10-49); AST 32 U/L (<34); Albumin 4.6 g/dL (3.2-5.0); Alkaline Phosphatase 63 U/L (46-116); Anion Gap 7.6 mmol/L (3-11); BUN 12 mg/dL (9-23); Bilirubin, Total 0.80 mg/dL (0.2-1.2); CO2 27.4 mmol/L (20.0-31.0); Calcium 9.0 mg/dL (8.3-10.6); Chloride 105 mmol/L (98-107); Glucose 83 mg/dL (74-106); Potassium 4.0 mmol/L (3.5-5.1); Sodium 140 mmol/L (136-145); Total Protein 7.5 g/dL (5.7-8.2)
[2025-05-02 15:46] VITALS: BP 147/95; PULSE 89; RESP 16; TEMP 36.8; O2SAT 100
[2025-05-02] MEDS: HYDROmorphone 2 MG/ML SYR 1 MG IVP (15:58)
[2025-05-02] MEDS: Tamsulosin 0.4 MG CAPCR PO (17:26)
[2025-05-02 17:41] VITALS: BP 138/96; PULSE 74; RESP 18; O2SAT 98
[2025-05-02] MEDS: MORPHine IR 15 MG TAB, 4 TABS/BTL PO (18:00)
== END 2025-05-02 17:31 | disposition home or self-care (01) ==
PROVIDERS: Emergency Provider Emergency Medicine; PCP Family Medicine
DX: R10.A2 Flank pain, left side (principal); Z87.442 Personal history of urinary calculi
CPT/HCPCS: 80053; 83690; 96361; 96374; 96375; 99285; 74178; 81003; 81015; 83605; 83735; 85025; 99284; J1171; J1885; J2405; J3490

== ENCOUNTER 2025-05-08 12:16 | Outpatient (REF) | payer OTHER, SELFPAY | END 2025-05-08 12:17 | disposition home or self-care (01) | LOC: LBN 12:16 | PROVIDERS: PCP Family Medicine; Visit Provider Family Medicine | DX: R10.A2 Flank pain, left side (principal); N39.0 Urinary tract infection, site not specified | CPT/HCPCS: 87086 ==

== ENCOUNTER 2025-05-18 12:13 | Outpatient (REF) | payer OTHER, SELFPAY ==
[2025-05-18 16:21] LABS: Glucose Negative (Negative)
== END 2025-05-18 12:14 | disposition home or self-care (01) ==
LOC: LBN 12:13
PROVIDERS: PCP Family Medicine; Visit Provider Emergency Medicine
DX: R10.A2 Flank pain, left side (principal); R30.0 Dysuria
CPT/HCPCS: 81003; 87086

== ENCOUNTER → 2025-05-19 00:52 | Outpatient (CLI) | payer OTHER, SELFPAY ==
--- NOTE | 2025-05-19 07:00 | DI.US_ITS ---
Exam(s) US NEEDLE LOCAL OTHER WO RAD EXAM: right neck mass,Nondiagnostic FNA in the office,ultrasound guided bx,r22.1 COMPARISON: No exams were available for comparison TECHNIQUE: Ultrasound performed using standard protocol. FINDINGS: Sonography was provided for Dr. Ceballos during the performance of a biopsy of a right neck mass. Please refer to the procedure report for complete details. DATA REPOSITORY:
--- NOTE | 2025-05-19 12:25 | PAPNONF_PTH ---
PATIENT: Christiano Cavazos LOC: [facility] U#:[id number] AGE/SX: 35/M ROOM: RE05/19/[address]: Arabella Lemon : 1990 BED: DIS: SPEC #: [id number] RECD: 05/19/25 13:05 STATUS: APRIL MO #: [id number] CONCHA: 05/19/25 12:[address]: Mirza Ceballos DEPT: [facility] [place] Cytology RECD BY: Alissa Oreilly ENTERED: 05/19/25 13:06 SP TYPE: RANULFO REBOLLAR DR: Arabella Lemon MD Tissues: 1 - BODY FLUID CYTO-FINE NEEDLE [facility] Procedures: BODY FLUID CYTO-FINE NEEDLE ASPIRATE-[facility] Comments: [id number] (PATH FNA CONSULT) (REFRIGERATED)
--- NOTE | 2025-05-19 12:50 | OPPNE_ITS ---
Date of service: 05/19/25 Time of Service: 12:50 Procedure Note Date of procedure: 05/19/25 Procedure: Aspiration, right parotid cyst, pathology present Surgeon/Proceduralist/Physician: Mirza Ceballos Procedure Diagnosis: Right parotid cyst Procedure Indications: The patient has a right parotid cyst of unclear etiology. Options were explained to the patient regarding further management. Risks including bleeding, infection, recurrence, damage to the facial nerve, and need for further treatment were discussed at length. Written consent was obtained. The below was then performed. Procedure Description: The patient was positioned in a supine position with his head turned to the left. He was prepped and draped in appropriate fashion and ultrasound used to localize the cyst in the right tail of parotid region. This cyst appeared to be thin-walled, and the contents were homogeneous and hypoechoic. 2% lidocaine wit h 1/100,000 epinephrine was injected into the skin and subcutaneous tissues overlying the cyst and then a 25-gauge needle was carefully introduced into the cyst using ultrasound guidance. A total of 10 cc of clear slightly yellow- tinged water-thin fluid was then removed, collapsing the cyst. Even with the fluid withdrawn, there was no obvious residual capsule. There were no secondary masses or lesions seen. There is no immediate filling of the cyst. Bleeding was minimal and self-limited. The patient tolerated the procedure well. He was then allowed to sit, stand, and ambulate. His vital signs remained stable. Pathology reviewed the fluids underneath the microscope and did not see any immediate cells He will call with any signs of infection, bleeding, or other concerns. He will call if he does not hear from me within 1 week with regard to pathology results we did discuss the fact that this could very well recur and if it does, we will need to consider options beyond this including excision. We will cross this bridge once we get there. He had no further questions. He is comfortable with the plan. He may use Tylenol or ibuprofen for any discomfort.
== END ==
LOC: DI 00:52
PROVIDERS: PCP Family Medicine; Visit Provider Registered Nurse Maternal Newborn
DX: K11.3 Abscess of salivary gland (principal)
CPT/HCPCS: 10005; 76942; 88104